=== PATIENT | female | born 1940 | race Caucasian/White ===

== ENCOUNTER 2022-11-28 11:24 | Emergency (ER) | payer OTHER, SELFPAY ==
[2022-11-28] VITALS (9 sets, daily range): BP systolic 119–157; BP diastolic 69–83; PULSE 69–85; RESP 12; TEMP 36.4; O2SAT 92–99; BMI 33.2
--- NOTE | 2022-11-28 11:57 | CRLHL7_ITS ---
For Patients: As a result of the Cures Act, medical imaging exams and procedure reports are released immediately into your electronic medical record. You may view this report before your referring provider. If you have questions, please contact your health care provider. INDICATION: Weakness, COVID exposure. TECHNIQUE: Chest 2 views. COMPARISON: Chest radiograph 09/05/2021. FINDINGS: No focal consolidation, pleural effusion, or pneumothorax. Calcified granuloma left lower lung. Normal heart size and pulmonary vascularity. Tortuous aorta. Stable elevation of the right hemidiaphragm. Left convex thoracic curve. IMPRESSION: No acute cardiopulmonary findings. Dictated by Cynthia Horta MD @ 11/28/2022 1:19:13 PM (Electronically Signed)
--- NOTE | 2022-11-28 11:58 | ED.GENADULT ---
HPI - General Adult General Time Seen by Provider: 11:58 Date Seen: 11/28/22 Chief complaint: Weakness Stated complaint: woke up chilled Time Seen by Provider: 11/28/22 11:44 Source: patient Mode of arrival: ambulatory Limitations: no limitations History of Present Illness HPI narrative: Patient is a 82-year-old female with a history of any chronic, chronic pain on baclofen history blood clots on apixaban presents emergency department for weakness. She is here with her daughter. They state low patient woke up this morning with chills and medical to did she could not get warm. Patient will been eating and drinking normally. She has no increased weakness compared to her baseline. Denies fevers, vision changes, chest pain, shortness of breath, abdominal pain, diarrhea, constipation, dysuria. She does states she has a cough, but it is chronic and she has has numbness which she states is also chronic. She states seen yearly screening different than her normal. They are concerned because she had a COVID exposure over the weekend. Family also thought she initially was having the symptoms because she got sunburned over the weekend in they thought she might have had sun poinsoning. Finish states patient forgets to take it baclofen last night. Related Data Home Medications Medication Instructions Recorded Confirmed Lactobacillus acidophilus 500 500 mmu cells PO DAILY 11/28/22 11/28/22 million cell capsule acetaminophen 325 mg capsule 325 mg PO Q4H PRN 11/28/22 11/28/22 apixaban 5 mg tablet (Eliquis) mg PO 11/28/22 baclofen 20 mg tablet mg PO 11/28/22 baclofen 5 mg tablet mg PO 11/28/22 calcium citrate 200 mg (950 mg) 200 mg PO DAILY 11/28/22 11/28/22 tablet fluticasone propionate 50 intranasal TID 11/28/22 mcg/actuation nasal spray,suspension lidocaine 5 % topical patch patch topical 11/28/22 magnesium oxide 400 mg (241.3 mg 400 mg PO DAILY 11/28/22 11/28/22 magnesium) tablet simvastatin 20 mg tablet mg PO 11/28/22 Previous Rx's Medication Instructions Recorded cephalexin 500 mg capsule 500 mg PO QID #40 caps 11/28/22 Allergies Allergy/AdvReac Type Severity Reaction Status Date / Time albuterol Allergy Mild Verified 11/28/22 11:39 PFSH PFS Social History Smoking Status: Never smoker How often do you have a drink containing alcohol: never AUDIT-C Alcohol total score: 0 Non-prescribed substance use: denies use service: No Exam Narrative: Exam Narrative: Const: Well-nourished, Well-developed, in mild distress Eyes: PERRL, no conjunctival injection, and symmetrical lids ENMT: Atraumatic external nose and ears. Moist mucous membranes. Neck: Symmetric, trachea midline, No thyromegaly. CVS: RRR, systolic murmur heard all 5th intercostal space, left mid-clavicular line. Peripheral pulses 2+ and equal in all extremities RESP: Unlabored respiratory effort. Clear to auscultation bilaterally. GI: Nontender/Nondistended, No rebound or guarding. MSK:Extremities w/o deformity, Normal Active ROM Skin: Warm, Dry. Well demarcated erythematous area to left forearm Neuro: Normal Muscle tone, No focal neurological deficits. Psych: Awake, Alert, & Oriented x3. Appropriate mood and affect. Const: Vital Signs, click to edit/add: Vital Signs - 24 hr 11/28/22 11:31 11/28/22 13:00 11/28/22 13:17 Temperature 97.5 F L Pulse Rate 74 Pulse Rate [Pulse Oximeter] 85 73 Respiratory Rate 12 Blood Pressure Blood Pressure [Ri ght Upper Arm] 126/70 149/83 H Pulse Oximetry 92 95 95 Oxygen Delivery Me thod Room Air Room Air 11/28/22 13:41 11/28/22 13:42 11/28/22 14:02 Temperature Pulse Rate 80 77 71 Pulse Rate [Pulse Oximeter] Respiratory Rate Blood Pressure 157/81 H 127/74 Blood Pressure [Ri ght Upper Arm] Pulse Oximetry 95 95 95 Oxygen Delivery Me thod 11/28/22 14:03 11/28/22 14:30 11/28/22 14:31 Temperature Pulse Rate 72 69 72 Pulse Rate [Pulse Oximeter] Respiratory Rate Blood Pressure 119/69 Blood Pressure [Ri ght Upper Arm] Pulse Oximetry 95 96 99 Oxygen Delivery Me thod Course Vital Signs Vital signs: Initial Vital Signs Temperature 97.5 F L 11/28/22 11:31 Temperature Source Temporal Artery Scan 11/28/22 11:31 Pulse Rate 85 11/28/22 11:31 Respiratory Rate 12 11/28/22 11:31 Blood Pressure 126/70 11/28/22 11:31 Blood Pressure Mean 88 11/28/22 11:31 Pulse Oximetry 92 11/28/22 11:31 Oxygen Delivery Method Room Air 11/28/22 11:31 Vital Signs Temperature 97.5 F L 11/28/22 11:31 Pulse Rate 85 11/28/22 11:31 Respiratory Rate 12 11/28/22 11:31 Blood Pressure 126/70 11/28/22 11:31 Pulse Oximetry 92 11/28/22 11:31 Oxygen Delivery Method Room Air 11/28/22 11:31 Temperature 97.5 F L 11/28/22 11:31 Pulse Rate 72 11/28/22 14:31 Respiratory Rate 12 11/28/22 11:31 Blood Pressure 119/69 11/28/22 14:31 Pulse Oximetry 99 11/28/22 14:31 Oxygen Delivery Method Room Air 11/28/22 13:00 Medical Decision Making MDM Narrative Medical decision making narrative: Patient is a for a femur presented emergency department for chills. She had a recent COVID exposure post having no upper respiratory symptoms. They are also concerned she might have some sun poisoning for possible sunburn on her left forearm. Patient is not having increased weakness from her baseline. Due to the vague nature of her symptoms a broad workup was ordered including CBC, CMP, urinalysis, troponin, EKG, chest x-ray, COVID/flu/RSV. Patient's EKG shows no concerning abnormalities. No previous EKGs to compare to. Patient's lab work all returned showing no concerning abnormalities. No clear signs of worsening underlying infection. COVID/flu/RSV were negative. Chest x-ray showed no concerning abnormalities. The erythema to her left arm does appear to be possibly erysipelas. There is no pain to palpation and is well demarcated unlikely to be a sunburn at this time. With her symptoms we will start her on antibiotics. I spoke to her daughter in their comfortable being discharged home at this time. I informed him to have close follow-up with her primary care provider. They are agreeable to this plan Differential Diagnosis Differential Diagnosis: Electrolyte abnormalities, infection, glucose abnormality, COVID Lab Data Labs: Lab Results 11/28/22 11/28/22 11/28/22 Range/Units 11:58 12:52 13:35 WBC 8.88 (4.50-11.00) K/uL RBC 5.03 (4.00-5.20) m/uL Hgb 15.0 (12.0-16.0) gm/dL Hct 44.8 (33.0-51.0) % MCV 89 (80-100) fL MCH 30 (26-34) pg MCHC 34 (32-36) gm/dL RDW Coeff of Luz 13.9 (11.5-15.5) % Plt Count 218 (140-440) K/uL Neut % (Auto) 70.0 (42.0-72.0) % Lymph % (Auto) 20.2 (20-44) % [place] % (Auto) 7.5 (0.0-11.0) % Eos % (Auto) 1.4 (0.0-7.0) % Baso % (Auto) 0.7 (0.0-3.0) % Neut # (Auto) 6.22 (1.7-7.0) K/uL Lymph # (Auto) 1.79 (0.90-2.90) K/uL [place] # (Auto) 0.70 (0.00-0.90) K/UL Eos # (Auto) 0.12 (0.00-0.50) K/uL Baso # (Auto) 0.06 (0.00-0.30) K/uL Abs Immat Gran (auto) 0.02 (0.00-0.30) K/uL Imm/Tot Granulo (auto) 0.2 % Sodium 134 L (135-149) mmol/L Potassium 3.7 (3.6-5.1) mmol/L Chloride 98 (96-114) mmol/L Carbon Dioxide 27 (20-32) mmol/L BUN 17 (7-30) mg/dL Creatinine 0.6 (0.5-1.5) mg/dL Estimated Creat Clear 30.08 Estimated GFR 88 ml/min Glucose 119 H (60-115) mg/dL Calcium 9.1 (8.4-10.6) mg/dL Troponin I < 0.01 L (0.01-0.04) ng/mL Urine Color Yellow (Yellow) Urine Appearance Clear (Clear) Urine pH 7.0 (5.0-8.5) Ur Specific [place] 1.015 (1.000-1.030) Urine Protein Negative (Negative) Urine Glucose (UA) Negative (Negative) Urine Ketones 1+ A (Negative) Urine Blood Trace-intact A (Negative) Urine Nitrite Negative (Negative) Urine Bilirubin Negative (Negative) Urine Urobilinogen 0.2 (0.2-1.0) Ur Leukocyte Esterase Negative (Negative) Urine RBC 0-2 (0-2) Urine WBC 0-2 (0-5) Ur Squamous Epith Cells None (None-Few) Urine Bacteria None (None) SARS-CoV-2 (PCR) Negative SARS-CoV-2 (Negative) Influenza Type A (PCR) Negative PCR FLU A (Negative) Influenza Type B (PCR) Negative PCR FLU B (Negative) RSV (PCR) Negative PCR RSV (Negative) Discharge Plan Discharge Clinical Impression: Erysipelas Patient Disposition: Home, Self-Care Condition: Stable Instructions: Cellulitis (ED) Additional Instructions: Your lab work returned showing no concerning abnormalities. The rash on the left forearm appears to possibly be erysipelas which is a superficial form of cellulitis. You will be started on antibiotics. Return for new or worsening symptoms Prescriptions: New cephalexin 500 mg capsule 500 mg PO QID Qty: 40 0RF No Action fluticasone propionate 50 mcg/actuation spray,suspension INTRANASAL TID Patient Comments: [NO ORIGINAL SIG] baclofen 20 mg tablet PO Eliquis 5 mg tablet PO simvastatin 20 mg tablet PO baclofen 5 mg tablet PO Lactobacillus acidophilus 500 million cell capsule 500 mmu cells PO DAILY magnesium oxide 400 mg (241.3 mg magnesium) tablet 400 mg PO DAILY acetaminophen 325 mg capsule 325 mg PO Q4H PRN lidocaine 5 % adhesive patch,medicated topical calcium citrate 200 mg (950 mg) tablet 200 mg PO DAILY Follow Up/Referrals: Carlita Gage MD [Primary Care Provider] - [facility]
[2022-11-28 12:42] LABS: PCR FLU A Negative PCR FLU A (Negative); PCR FLU B Negative PCR FLU B (Negative); PCR RSV Negative PCR RSV (Negative); SARS PCR* Negative SARS-CoV-2 (Negative)
[2022-11-28 13:01] LABS: Basophils Absolute Auto 0.06 K/uL (0.00-0.30); Basophils Percent Auto 0.7 % (0.0-3.0); Eosinophils Absolute Auto 0.12 K/uL (0.00-0.50); Eosinophils Percent Auto 1.4 % (0.0-7.0); Hematocrit 44.8 % (33.0-51.0); Immature Granulocytes Abs Auto 0.02 K/uL (0.00-0.30); Immature Granulocytes Pct Auto 0.2 %; Lymphocytes Absolute Auto 1.79 K/uL (0.90-2.90); Lymphocytes Percent Auto 20.2 % (20-44); Mean Corpuscular HGB Conc 34 gm/dL (32-36); Mean Corpuscular Hemoglobin 30 pg (26-34); Mean Corpuscular Volume 89 fL (80-100); Monocytes Percent Auto 7.5 % (0.0-11.0); Neutrophils Absolute Auto 6.22 K/uL (1.7-7.0); Platelet Count* 218 K/uL (140-440); RDW Coefficient of Variation % 13.9 % (11.5-15.5); Red Blood Count 5.03 m/uL (4.00-5.20); White Blood Count* 8.88 K/uL (4.50-11.00)
[2022-11-28 13:05] LABS: Slide Review Reflex No
[2022-11-28 13:18] LABS: Chloride* 98 mmol/L (96-114); Potassium* 3.7 mmol/L (3.6-5.1); Sodium* 134 mmol/L (135-149)
[2022-11-28 13:21] LABS: Blood Urea Nitrogen* 17 mg/dL (7-30); Carbon Dioxide* 27 mmol/L (20-32); Creatinine* 0.6 mg/dL (0.5-1.5); Est. Creatinine Clearance* 30.08; Estimated Glomerular Filt Rate 88 ml/min; Glucose* 119 mg/dL (60-115)
[2022-11-28 13:22] LABS: Calcium* 9.1 mg/dL (8.4-10.6)
[2022-11-28 13:39] LABS: Troponin I* < 0.01 ng/mL (0.01-0.04)
[2022-11-28 13:45] LABS: Appearance Urine Clear (Clear); Bilirubin Urine Negative (Negative); Blood Urine Trace-intact (Negative); Color Urine Yellow (Yellow); Glucose Urine Negative (Negative); Ketones Urine 1+ (Negative); Leukocyte Esterase Urine Negative (Negative); Nitrite Urine Negative (Negative); Protein Urine Negative (Negative); Specific Gravity Urine 1.015 (1.000-1.030); Urobilinogen Urine 0.2 (0.2-1.0)
[2022-11-28 13:56] LABS: RBC Urine 0-2 (0-2); WBC Urine 0-2 (0-5)
== END 2022-11-28 14:58 | disposition home or self-care (01) ==
PROVIDERS: Emergency Provider Student in an Organized Health Care Education/Training Program; PCP Internal Medicine
DX: A46 Erysipelas (principal)
CPT/HCPCS: 36415; 71046; 80048; 81001; 84484; 85025; 87631; 93005; 99283; 99284

== ENCOUNTER 2022-12-01 10:35 | Outpatient (RCR) | payer SELFPAY | END 2022-12-22 13:23 | disposition home or self-care (01) | LOC: MOW 10:35 | PROVIDERS: PCP Internal Medicine; Visit Provider Internal Medicine | DX: Z76.0 Encounter for issue of repeat prescription (principal) | CPT/HCPCS: S5170 ==

== ENCOUNTER 2023-02-19 06:44 | Outpatient (CLI) | payer OTHER, SELFPAY | END 2023-02-19 06:45 | disposition home or self-care (01) | PROVIDERS: PCP Internal Medicine; Visit Provider Family Medicine | DX: R53.1 Weakness (principal) | CPT/HCPCS: A0998 ==

== ENCOUNTER 2023-06-03 15:10 | Observation (INO) | payer OTHER, SELFPAY ==
[2023-06-03 15:17] VITALS: BP 179/94; PULSE 98; RESP 20; TEMP 36.3; O2SAT 92; BMI 32.9
--- NOTE | 2023-06-03 15:44 | CRLHL7_ITS ---
For Patients: As a result of the Century Cures Act, medical imaging exams and procedure reports are released immediately into your electronic medical record. You may view this report before your referring provider. If you have questions, please contact your health care provider. INDICATION: Pain and swelling with trauma. TECHNIQUE: Three views. COMPARISON: None. FINDINGS: Nondisplaced fracture of the distal right fibula. Possible small avulsion fracture of the posterior malleolus on the lateral view. Diffuse periarticular soft tissue swelling. Plantar calcaneal spur and dystrophic mineralization of the plantar soft tissues of the hindfoot. 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 Orthopedic referral is recommended. If clinically indicated, follow-up imaging (CT or MRI) could be performed for further evaluation. Dictated by Kavon Desai MD @ 06/03/2023 4:35:58 PM (Electronically Signed)
--- NOTE | 2023-06-03 16:18 | ED_ITS ---
HPI - General Adult General Chief complaint: Extremity Pain/Injury, Lower Stated complaint: Fall Time Seen by Provider: 06/03/23 16:01 Source: patient Limitations: no limitations History of Present Illness HPI narrative: Year old female presenting today with ankle pain. Patient says she was using the bathroom at home when she lost her balance and fell sideways, twisting her ankle. she was unable to get up secondary to ankle pain. Patient lives independently with her . They have a manager location who comes a few hours in the morning and a few hours in the evening. She denies hitting her head or losing consciousness. He is not having any neck or back pain that is new. Past medical history significant for chronic pain, left lower extremity blood clots on anticoagulation, hyperlipidemia. She also had spinal surgery in the [facility] with resulting ambulation difficulties, she usually drags the left foot according to her son and she uses a walker at all times. Related Data Home Medications Medication Instructions Recorded Confirmed Lactobacillus acidophilus 500 500 mmu cells PO DAILY 11/28/22 11/28/22 million cell capsule acetaminophen 325 mg capsule 325 mg PO Q4H PRN 11/28/22 11/28/22 apixaban 5 mg tablet (Eliquis) mg PO 11/28/22 baclofen 20 mg tablet 20 mg PO 11/28/22 baclofen 5 mg tablet 5 mg PO 11/28/22 calcium citrate 200 mg (950 mg) 200 mg PO DAILY 11/28/22 11/28/22 tablet fluticasone propionate 50 intranasal TID 11/28/22 mcg/actuation nasal spray,suspension lidocaine 5 % topical patch patch topical 11/28/22 magnesium oxide 400 mg (241.3 mg 400 mg PO DAILY 11/28/22 11/28/22 magnesium) tablet simvastatin 20 mg tablet 20 mg PO 11/28/22 alendronate 70 mg tablet 70 mg PO 06/03/23 Previous Rx's Medication Instructions Recorded cephalexin 500 mg capsule 500 mg PO QID #40 caps 11/28/22 Allergies Allergy/AdvReac Type Severity Reaction Status Date / Time albuterol Allergy Mild Verified 11/28/22 11:39 Review of Systems Status of ROS: Reports: 6 or more systems reviewed and unremarkable except as noted in History and below PFS PFS Medical History Durable power of trade mark attorney in chart Social History Smoking Status: Never smoker Do you use any of these nicotine containing products: None Second hand tobacco smoke exposure: No How often do you have a drink containing alcohol: never AUDIT-C Alcohol total score: 0 Non-prescribed substance use: denies use service: No Exam Narrative: Exam Narrative: Well-nourished elderly patient in no acute distress. Hearing aids in place. Alert and oriented x3. Answers questions appropriately. Mood and affect are appropriate. Thoughts are goal oriented and rational. No tangential or magical thinking noted. Patient speaks in full sentences without needing to catch her breath. Speech is not slurred or pressured. HEENT: Normocephalic atraumatic. Pupils are equally round reactive to light. Extraocular muscles are intact. Conjunctivae are moist without any icterus noted. Moist mucous membranes. Neck is soft. No tenderness over the cervical spine. Cardiovascular: Heart is regular rate and rhythm. Lungs: Clear to auscultation bilaterally. Extremities: Bilateral lower extremities are without edema. Right lower extremity has significant edema over the lateral ankle. Tenderness to palpation. Skin: Well perfused. Const: Vital Signs, click to edit/add: Vital Signs - 24 hr 06/03/23 15:17 Temperature 97.3 F L Pulse Rate [Right Pulse Oximeter] 98 Respiratory Rate 20 Blood Pressure [Ri ght Upper Arm] 179/94 H Pulse Oximetry 92 Oxygen Delivery Me thod Room Air Course Course ED Course: X-ray of the ankle was done which showed a nondisplaced fracture of the distal right fibula and a possible small avulsion fracture of the posterior malleolus on the lateral view. Did consult with Orthopedics, who recommended Cam boot and nonweightbearing. They will consult in the morning and decide whether not to do further imaging at that time. Given that the patient cannot ambulate with this injury patient will be admitted for further management Vital Signs Vital signs: Initial Vital Signs Temperature 97.3 F L 06/03/23 15:17 Temperature Source Temporal Artery Scan 06/03/23 15:17 Pulse Rate 98 06/03/23 15:17 Respiratory Rate 20 06/03/23 15:17 Blood Pressure 179/94 H 06/03/23 15:17 Blood Pressure Mean 122 H 06/03/23 15:17 Blood Pressure Position Sitting 06/03/23 15:17 Pulse Oximetry 92 06/03/23 15:17 Oxygen Delivery Method Room Air 06/03/23 15:17 Vital Signs Temperature 97.3 F L 06/03/23 15:17 Pulse Rate 98 06/03/23 15:17 Respiratory Rate 20 06/03/23 15:17 Blood Pressure 179/94 H 06/03/23 15:17 Pulse Oximetry 92 06/03/23 15:17 Oxygen Delivery Method Room Air 06/03/23 15:17 Temperature 97.3 F L 06/03/23 15:17 Pulse Rate 98 06/03/23 15:17 Respiratory Rate 20 06/03/23 15:17 Blood Pressure 179/94 H 06/03/23 15:17 Pulse Oximetry 92 06/03/23 15:17 Oxygen Delivery Method Room Air 06/03/23 15:17 Medical Decision Making MDM Narrative Medical decision making narrative: 83-year-old female status post ankle fracture and unable to ambulate. Patient admitted for further management. Imaging Data X-ray ankle: Attestation: I have reviewed the pertinent imaging results. Radiologist's impression: Three views. COMPARISON: None. FINDINGS: Nondisplaced fracture of the distal right fibula. Possible small avulsion fracture of the posterior malleolus on the lateral view. Diffuse periarticular soft tissue swelling. Plantar calcaneal spur and dystrophic mineralization of the plantar soft tissues of the hindfoot. 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 Orthopedic referral is recommended. If clinically indicated, follow-up imaging (CT or MRI) could be performed for further evaluation. Discharge Plan Discharge Clinical Impression: Unable to ambulate, Ankle fracture Patient Disposition: Admitted As Observation Condition: Stable Prescriptions: No Action fluticasone propionate 50 mcg/actuation spray,suspension INTRANASAL TID Patient Comments: [NO ORIGINAL SIG] baclofen 20 mg tablet 20 mg PO Eliquis 5 mg tablet PO simvastatin 20 mg tablet 20 mg PO baclofen 5 mg tablet 5 mg PO Lactobacillus acidophilus 500 million cell capsule 500 mmu cells PO DAILY magnesium oxide 400 mg (241.3 mg magnesium) tablet 400 mg PO DAILY acetaminophen 325 mg capsule 325 mg PO Q4H PRN lidocaine 5 % adhesive patch,medicated topical calcium citrate 200 mg (950 mg) tablet 200 mg PO DAILY cephalexin 500 mg capsule 500 mg PO QID Qty: 40 0RF alendronate 70 mg tablet 70 mg PO Follow Up/Referrals: Carlita Gage MD [Primary Care Provider] -
--- OUTSIDE RECORDS SUMMARY | 2023-06-03 16:35 | XMS_ITS | Clinical Summary ---
Author Name Unknown Organization [facility] [employer] [facility] Address [place], [place] [address] Care Team Providers Care Director Of Catering Sales Name Role Phone Carlita Gage MD Primary Care Provider Pebbles Solano Unavailable [phone] Tere Hill RN Unavailable Holly Johnson DO Unavailable [phone] [facility] [place] Unavailable [phone] Allergies Active Allergy Reactions Criticality Noted Date Comments Albuterol 07/06/2006 anxious Sulfa (Sulfonamide Antibiotics) 12/2006 Medications Medication Sig Dispensed Refills Start Date End Date Status acetaminophen (TYLENOL) 325 mg tablet Take 650 mg by mouth every 4 hours if needed for Pain. Max acetaminophen dose: 4000mg in 24 hrs. 0 Active melatonin 3 mg tablet Take 1 Tablet (3 mg) by mouth once daily. 0 09/08/19 21 Active magnesium oxide (MAG-OX 400) 400 mg tablet Take 1 Tablet (400 mg) by mouth once daily. 0 09/08/19 21 Active Lactobacillus acidophilus 500 million cell cap Take one capsule daily 0 08/31/19 23 Active fluticasone (50 mcg per actuation) nasal solution (FLONASE)Indications:Per ennial allergic rhinitis USE 1 SPRAY IN EACH NOSTRIL TWICE DAILY 48 g 2 11/21/19 23 Active CPAPIndications:DREW (obstructive sleep apnea) CPAP machine for home use at pressure 10.6 cmw, full face mask x1/3month with a full face cushion x1/mo 1 Each 11 11/23/19 23 Active simvastatin (ZOCOR) 20 mg tabletIndications:Pure hypercholesterolemia Take 1 Tablet (20 mg) by mouth once daily in the evening. 90 Tablet 3 01/06/20 23 Active baclofen (LIORESAL) 5 mg tab tabletIndications:[facility] Take 1-2 Tablets (5-10 mg) by mouth 2 times daily if needed (spasms). 180 Tablet 4 03/12/20 23 Active calcium carbonate-vitamin D3, 600 mg-400 unit, 600 mg-10 mcg (400 unit) tablet Take 1 Tablet by mouth once daily with a meal. 0 04/07/20 23 Active Diaper,Brief, Adult,DisposableIndicati ons:Mixed stress and urge urinary incontinence For home use. Uses 2/day. 60 Each 05/11/19 24 Active baclofen (LIORESAL) 20 mg tabletIndications:Syrinx of spinal cord (HC),Spasticity TAKE 1 TABLET BY MOUTH AT BEDTIME. SEE NOTES TO PHARMACY 90 Tablet 3 05/22/19 24 Active apixaban (Eliquis) 5 mg tabletIndications:Histor y of DVT (deep vein thrombosis) Take 1 Tablet (5 mg) by mouth two times daily. 180 Tablet 3 05/22/19 24 Active alendronate (FOSAMAX) 70 mg tabletIndications:Osteop enia, unspecified location Take 1 Tablet (70 mg) by mouth once a week in the morning. Take on empty stomach with full glass of water. Do not lie down for 1 hr. 12 Tablet 3 05/22/19 24 Active baclofen (LIORESAL) 20 mg tabletIndications:Syrinx of spinal cord (HC),Spasticity TAKE 1 TABLET BY MOUTH AT BEDTIME. SEE NOTES TO PHARMACY 90 tablet. 6 05/24/19 22 024 Discontin ued(Reord er (E-cancel not sent)) apixaban (Eliquis) 5 mg tabletIndications:Histor y of DVT (deep vein thrombosis) Take 1 Tablet (5 mg) by mouth two times daily. 180 Tablet 1 04/06/20 23 024 Discontin ued(Reord er (E-cancel not sent)) apixaban (Eliquis) 5 mg tabletIndications:Histor y of DVT (deep vein thrombosis) Take 1 Tablet (5 mg) by mouth two times daily. 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 01/14/2019 Type 2 diabetes mellitus wit hout complication, without long-term current use of insulin 01/06/2019 Tear of left glenoid labrum 11/27/2018 Muscle spasm 11/27/2018 Impingement syndrome of left shoulder 11/20/2018 Lumbar stenosis with neurogenic claudication Lumbar foraminal stenosis 06/12/2018 Primary cancer of left breast 06/12/2018 Trigger finger, right middle finger 08/01/2017 DREW 03/05/2017 AHI-16 03/13/2017 Bronchiectasis without complication 06/02/2016 Chronic cough 05/31/2010 Overview: Spirometry normal Osteopenia 04/25/2010 Overview: 03/2010 Lowest T-score -1.9 Sensorineural hearing loss, bilateral 05/11/2009 History of cancer of left breast 06/28/2001 Overview: Initially treated with left umpectomy and chemotherapy s/p bilateral mastectomies Treated with Arimidex for 5 years Pure hypercholesterolemia Gastroesophageal reflux disease without esophagi tis Perennial allergic rhinitis Osteoarthritis Resolved Problems Problem Noted Date Diagnosed Date Resolved Date Hypertension 05/26/2019 04/07/2023 Heart murmur 01/18/2019 01/23/2019 Transient global amnesia 01/17/2019 Chest pain 01/16/2019 05/27/2019 Weakness 11/27/2018 04/07/2023 Cellulitis of right hand 08/14/2016 Dog bite of finger 08/14/2016 7 Morbid obesity 07/13/2016 09/07/2020 Prediabetes 06/03/2014 05/27/2019 Overview: HbA1c 6.0% Osteoporosis 04/21/2008 05/15/2012 Encounters Date Type Department Care Team Description 06/01/2023 11:00 AM BRIM FLEXER Telemedicine [facility] [address] [facility] [address] [place] [address] Bruce Guadalupe MD Fatigue 06/01/2023 Telephone [facility] [address] [place] [address] [address] Davin Steven MD Questions 05/31/2023 Telephone [facility] [address] [place] [address] Davin Steven MD Questions 05/31/2023 Travel 05/24/2023 2:30 PM BRIM FLEXER Ancillary Procedure [facility] Gita Moseley [address] [place] [address] [address] [address] 05/24/2023 1:30 PM BRIM FLEXER [facility] [address] [address] Davin Steven MD CV General Cardiology New (Initial visit, ref by Too for severe . ) 05/24/2023 Travel 05/22/2023 Travel 05/22/[address] [place] [address] Carlita Gage MD Refill Request (baclofen (LIORESAL) 20 mg tablet ) 05/22/2023 [address] [address] Carlita Gage MD Refill Request (Eliquis) 2023 Telephone [facility] [address] [facility] [address] [place] [address] Cardiology, Anw Appointment (ANY CARD) 05/16/2023 11:00 AM BRIM FLEXER Ancillary Procedure [facility] [address] [place] [address] 05/16/2023 10:30 AM BRIM FLEXER Ancillary Procedure [facility] [address] [place] [address] 05/15/2023 Travel 04/06/2023 9:00 AM BRIM FLEXER Office Visit [address] [phone] Carlita Gage MD Medicare ANNUAL (subsequent) Visit (Update vaccines /Check ears ); Immunization/Injec tion (COVID-19 vaccine); Immunization/Injec tion 04/06/2023 Travel 04/04/2023 Travel 03/28/2023 11:30 AM BRIM FLEXER Office Visit [facility] [address] [place] [address] Inocente Vila, DPMerna Consult (Toenail fungus) 03/28/2023 Travel 03/08/[address] [address] Carlita Gage MD Medication Management (baclofen (LIORESAL) 5 mg tab tablet) 03/05/2023 Telephone [facility] [address] [place] [id number] Holly Johnson DO Refill Request (baclofen 5mg) from Last 3 Months Immunizations Name Administration Dates Next Due COVID-19 Vaccine Spikevax (M oderna 50mcg/0.5mL) 12YO+ 4459-0938 Formula PF 04/06/2023 COVID-19 vaccine (Moderna 100mcg/0.5mL) PF, MDV 07/08/2020,06/10/2020 COVID-19 vaccine (Xenon Arc NTech 30mcg/0.3mL) 12YO+ BIVALENT PF, MDV 02/22/2022 DTaP 03/27/2008 Influenza A (H1N1), Inactivated 05/13/2009 Influenza Virus, Unspecified 01/26/2016,02/05/20 15,03/06/2003 Influenza, High-dose Inactivated 019,02/08/2018,01/24/2017,2015,02/04/2015 Influenza, IIV3 (Age >=3 years) 02/07/20 13,01/18/2012,01/28/2009,2006,01/28/2006,03/06/2003 Influenza, IIV4 (=>6mos) MDV 03/05/2014 Influenza, Inactivated AIIV4 (Age 65+ Years) Preserv Free 04/06/2023,02/22/2022,01/31/2021,2019 Influenza, Inactivated IIV3 (Age 65+ Years) Preserv Free 02/18/2018,01/24/2017 Pneumococcal Poly,23-Valent (Pneumovax) 04/04/2011,01/23/2003,04/30/1993 Pneumococcal conj 13-Valent (Prevnar 13) 05/27/2014 Td (Age >=7 Years) 02/28/2003 Tdap 08/13/2016,03/27/2008 Zoster (Shingrix-RZV, recombinant) 02/19/2018, Zoster (Zostavax-ZVL, live) 10/25/2006 Family History Medical History Relation Name Comments Good Health Daughter Heart Disease Father Other Father of emphyse ma Heart Disease Mother of [place] Stroke Sister 3 Good Health Son Relation Name Status Comments Daughter Alive Father (Age 73) Mother (Age 77) Sister 1 (Age 90) Sister 2 Alive Sister 3 Son Alive Social History Tobacco Use Types Packs/Day Years Used Date Smoking Tobacco: Never Smokeless Tobacco: Never Tobacco Cessation:Counseling Given: Yes Alcohol Use Standard Drinks/Week Comments Not Currently 0 (1 standard drink = 0.6 oz pur e alcohol) rarely, 2 drinks per month PHQ-2 Answer Date Recorded PHQ-2 TOTAL SCORE 0 04/06/2023 Social Connections Answer Date Recorded Frequency of Communication with Friends and Fami ly Not on file 10/27/2022 Financial Resource Strain Answer Date R ecorded Difficulty of Paying Living Expenses 3 10/26/2021 Difficulty of Paying Living Expenses Not on file 10/26/2021 Food Insecurity Answer Date Recorded Worried About Running Out of Food in the Last Ye ar 1 10/26/2021 Transportation Needs Answer Date Record ed Lack of Transportation (Medical) 1 10/26/2021 Housing Stability Answer Date Recorded Unable to Pay for Housing in the Last Year 1 10/26/2021 Sex and Gender Information Value Date Recorded Sex Assigned at Not on file Gender Identity Not on file Sexual Orientation Not on file Obstetrics History Para Term AB IAB SAB Ectopic Multiple Livin g Live Births 3 2 1 1 2 Date Outcome GA Total Labor Labor/2nd/3rd Weight Sex Delivery Anes PTL Jaye A1 A5 Name Cl in SAB Para Para Last Filed Vital Signs Vital Sign Reading Time Taken Comments Blood Pressure 136/70 05/24/2023 1:22 PM BRIM FLEXER Pulse 78 05/24/2023 1:22 PM BRIM FLEXER Temperature 35.2 ??C (95.3 ??F) 10/05/2022 2:33 PM CD T Respiratory Rate 64 10/05/2022 2:33 PM CDT Oxygen Saturation 94% 05/24/2023 1:22 PM BRIM FLEXER Inhaled Oxygen Concentration - - Weight 80.7 kg (178 lb) 05/24/2023 1:22 PM BRIM FLEXER p t reported Height 156.8 cm (5' 1.73) 05/24/2023 1:22 PM CS T Body Mass Index 32.84 05/24/2023 1:22 PM BRIM FLEXER Plan of Treatment Upcoming Encounters Date Type Department Care Team (Late st Contact Info) Description 06/07/2023 11:00 AM BRIM FLEXER Orders Only [facility] [address] [place] [address] [place] [address] 06/07/2023 11:30 AM BRIM FLEXER Office Visit [facility] [address] [place] [address] [place] [address] Health Maintenance Due Date Last Done Comments COVID-19 vaccine series ( season) 2023 04/06/2023, 02/22/2022, 12/14/2021, Additional history exists Depression screening for age 12+ 04/06/2024 04/06/2023, 10/27/2021, 10/26/2021, Additional history exists Medicare Wellness for age 65+ 04/06/2024, 10/26/2021, 09/07/2020, Additional history exists BMI (ht and wt on same day) for age 18+ 05/24/2024 05/24/2023, 10/26/2021, 04/04/2021, Additional history exists Tetanus booster 08/13/2026 08/13/2016, 03/01, 02/28/2003 Pneumococcal series for age 65+ Completed 05/27/2014, 04/04/2011, 01/23/2003, Additional history exists Tdap Completed 08/13/2016, 03/27/2008 Zoster (shingles) series for age 50+ Completed 02/19/2018, 10/24/2017, 10/25/2006 Influenza for age 65+ Completed 04/06/2023 , 02/22/2022, 01/31/2021, Additional history exists DEXA/DXA scan for age 65+ Completed 2023, 05/21/2012, 04/26/2010, Additional history exists Medical Devices Implanted Type Area Cooperer Device Identifier Shelf Expiration Date Model / Serial / Lot Screw Neuro 4mm Matrixneuro Slf Drill Titnm - [id number] Implanted:Qty: 9 on 06/05/2019 by Clement Khan MBChB at [facility] [facility] [id number] .[id number] / / Plate Facial 7hole Synthes Adaption - [id number] Implanted:Qty: 2 on 06/05/2019 by Clement Khan MBChB at [facility] [employer] [facility] [id number] # / / Procedures Procedure Name Priority Date/Time Associated Diagnosis Comments CTA CHEST ABD PELVIS TAVR - DUAL READ ANDREW 05/24/2023 3:01 PM BRIM FLEXER Aortic stenosis, severe CREATININE,ISTAT Routine 05/24/2023 2:41 PM BRIM FLEXER Aortic stenosis, severe HEMATOCRIT Routine 05/24/2023 2:37 PM BRIM FLEXER Aortic stenosis, severe Pre-procedure lab exam ECHO TTE COMPLETE WO CONTRAST Routine 05/16/2023 11:40 AM BRIM FLEXER Systolic murmur Aortic valve stenosis, etiology of cardiac valve disease unspecified XR DXA BONE DENSITY 2 SITES AXIAL Routine 05/16/2023 11:04 AM BRIM FLEXER Osteopenia, unspecified location VITAMIN D 25 (DEFICIENCY) Routine 04/06/2023 10:41 AM BRIM FLEXER Vitamin D deficiency LIPID PANEL W REFLEX MEASURED LDL Routine 04/06/2023 10:41 AM BRIM FLEXER Pure hypercholesterolemia COMP METABOLIC PANEL Routine 04/06/2023 10:41 AM BRIM FLEXER Primary cancer of left breast (HC) CBC W PLT NO DIFF Add On 04/06/2023 9:1 3 AM BRIM FLEXER Primary cancer of left breast (HC) HEMOGLOBIN A1C Routine 04/06/2023 9:13 AM BRIM FLEXER Type 2 diabetes mellitus without complication, without long-term current use of insulin (HC) from Last 3 Months Results * CTA CHEST ABD PELVIS TAVR - DUAL READ (05/24/2023 3:01 PM BRIM FLEXER) Anatomical Region Laterality Modality CHEST, Abdomen, Pelvis Computed Tomography Impressions 05/25/2023 4:02 PM BRIM FLEXER 1. No acute nonvascular findings in the chest, abdomen, and pelvis. 2. Please refer to separately dictated report for evaluation of cardiovascular structures. Please note that all CT scans at this facility use dose modulation, iterative reconstruction, and/or weight-based dosing when appropriate to reduce radiation dose to as low as reasonably achievable. Dictated by Dean Rudd MD @ 05/25/2023 12:13:22 PM Signed by: Dean Rudd MD @05/25/2023 12:13:22 PM (Electronic Signature) Narrative 05/25/2023 4:02 PM BRIM FLEXER Images from the original result were not included. STUDY: CTA CHEST, ABDOMEN, AND PELVIS TAVR Study date: 05/25/2023 Indication: 83 year-old female with aortic valvular stenosis referred for evaluation of aortic valve annulus, thoracic aorta anatomy, and arterial access anatomy to determine candidacy for transcatheter aortic valve replacement (TAVR) procedure. STUDY PARAMETERS: Scanner: Siemens Definition Drive Contrast: 100 ml of Omnipaque 350 Scan protocol: Helical with dose modulation for heart image acquisition. ?? High-pitch for chest, abdomen, and pelvis image acquisition. Radiation dose length product: 1312 for heart and chest, abdomen, pelvis imaging. Image quality: Good FINDINGS: Aortic valve: Aortic valve: ??Severely calcified trileaflet valve with reduced leaflet opening excursion. . Aortic valve calcium score 2203. Annulus: Angles: Optimal deployment projection (balloon expandable device): EVANS 3??, BRUSH CUTTER 2?? Optimal deployment projections (self expandable device): EVANS 21??, CAU 20?? Left ventricle / aortic ??angle: 55?? Access: Other findings: Coronary arteries: ??Dominance: Right coronary artery ??Left main Patent ??Left anterior descending artery Patent ??Left circumflex artery Patent ??Right coronary artery Patent Left atrium: Reduced distal appendage contrast opacification Left ventricle septal ECV: 35% Pericardium: Normal without effusion. Thoracic aorta: Left-sided arch. Heka-wc-lbrtdotn atheromatous disease in the arch and descending thoracic aorta. Abdominal aorta: Normal size and morphology. Noncardiac findings: Please see separate radiology report. FINAL IMPRESSIONS: Severely calcified trileaflet aortic valve with calcium score of 2203 and reduced leaflet excursion. Best arterial access site is right or left transfemoral. Catheter coronary angiography is not needed prior to aortic valve intervention. Aortic annulus has a perimeter of 71 and an annular area of 394 mm??. FOR PATIENT: Results are automatically released to your [employer] account once available, in compliance with federal regulations. ?? This means that you may see your results before your provider has had a chance to review them. ??Please allow 2-3 business days for your provider to comment on the results. Robert Farley MD [facility] 05/25/2023 For Patients: As a result of the Century Cures Act, medical imaging exams and procedure reports are released immediately into your electronic medical record. ??You may view this report before your referring provider. ?? If you have questions, please contact your health care provider. OVER-READ ??OVER-READ ??OVER-READ OVER-READ: DETAILED RADIOLOGY EXTRACARDIAC OVER-READ OF CARDIAC CT 05/24/2023 TECHNIQUE: ??Please see cardiology report for technical information. ??100 cc Omnipaque-350 intravenous contrast. ?? This exam is being performed in conjunction with the services provided by the [facility] ([facility]). CLINICAL HISTORY: ?? Aortic stenosis. Cardiac over-read. FINDINGS: ?? Chest: Asymmetric prominence of the right thyroid lobe red bilateral hypoattenuated thyroid nodules measuring up to 9 mm in the isthmus which may represent multinodular goiter. No significant lymphadenopathy in the chest. Mild bibasilar dependent atelectatic changes. No focal airspace opacities or pleural effusions. Benign bilateral calcified granulomas. Stable small bilateral pulmonary nodules measuring up to 3 mm in the right lower lobe pulmonary nodule (series 17, image 177). Abdomen/Pelvis: Liver: Unremarkable. Gallbladder: Unremarkable. Spleen: Unremarkable. Adrenal glands: Unremarkable. Kidneys: Enhance symmetrically without hydronephrosis. Pancreas: Unremarkable. Lymph nodes: No retroperitoneal, mesenteric, inguinal, or pelvic adenopathy by CT criteria. Bowel: Evaluation is limited without enteric contrast. Grossly unremarkable. Urinary bladder: Limited evaluation due to underdistention. No gross pathology. Reproductive structures: Unremarkable for patient`s age. No abdominal/pelvis ascites or free intraperitoneal air. Musculoskeletal: Visualized osseous structures demonstrate diffuse degenerative changes. Davin Steven MD CT * (ABNORMAL) CREATININE,ISTAT (05/24/2023 2:41 PM BRIM FLEXER) CREATININE, POCT 0.60 0.57 - 1.11 mg/dL 05/24/2023 2:43 PM [facility] Comment:Caution: Patients ta keith Hydroxyurea have falsely increased iStat Creatinine results. Verify creatinine results ordering a Creatinine (74565.2) eGFR 88(L) >90 mL/min/1.7 3m2 05/24/2023 2:43 PM BRIM FLEXER [facility] Comment:As of 2021, eG FR is calculated by the CKD-EPI creatinine equation without race adjustment. eGFR can be influenced by muscle mass, exercise, and diet. The reported eGFR is an estimation only and is only applicable if the renal function is stable. Blood BLOOD SPECIMEN / Unknown 05/24/2023 2:41 PM BRIM FLEXER 05/24/2023 2:43 PM BRIM FLEXER Davin Steven MD CHEMISTRY Performing Organization Address City/[facility]/ZIP Co de Phone Number [facility] [address] [place] [address] [address] [place] [address], [place] * HEMATOCRIT (05/24/2023 2:37 PM BRIM FLEXER) Pathologist [facility] HEMATOCRIT 44.2 33.0 - 51.0 % 05/24/2023 2:42 PM BRIM FLEXER [facility] Blood BLOOD SPECIMEN / Unknown IV Start / Unknown 05/24/2023 2:37 PM BRIM FLEXER 05/24/2023 2:37 PM BRIM FLEXER Davin Steven MD HEMATOLOGY Performing Organization Address City/[facility] Co de Phone Number [address] [place] [address], [place] * ECHO TTE COMPLETE WO CONTRAST (05/16/2023 11:40 AM BRIM FLEXER) AORTIC VALVE MEAN PG 48 mmHg EJECTION FRACTION 69 % PEAK TR VELOCITY 2.6 m/s LVEDD 3.7 cm Anatomical Region Laterality Modality Ultrasound 05/16/2023 11:0 9 AM BRIM FLEXER Narrative 05/16/2023 2:34 PM BRIM FLEXER ECHOCARDIOGRAM ONDINA VARMA ? Accession#: ?? [id number] : ?1940 82 years Study Date: ?? 05/16/2023 11:09:56 AM Gender: F ?BP: ? 124/80 mmHg Height: 155.00 cm ?BSA: ?1.80 m? ? ? Weight: 81.00 kg ? Tech: ? MJW ? Referring MD: CARLITA GAGE Site: ? [facility] Reading Location: Mobile-OP Patient Location: Outpatient. Procedure: 2D, Color Doppler and Spectral Doppler. Indication for study: AO Valve Stenosis Cardiac Rhythm: Regular.Study quality: Imaging limitations: This study was subject to imaging limitations due to Patient positioning difficult. Final Impressions: 1. Normal left ventricular size, mildly increased wall thickness, normal global systolic function, calculated EF of 69 %. 2. Right ventricular cavity size is normal, global systolic RV function is normal. 3. Mildly enlarged left atrium. 4. The aortic valve is calcified and trileaflet, severe stenosis (Vmax 4.1m/s, MG 48mmHg, DI 0.17, SVi 38.3 ml/m? ? ?) and trace regurgitation. 5. The mitral valve is sclerotic, mild mitral regurgitation. Comparison Compared to prior exam of 05/29/2019: now severe, recommend cardiology consultation. Chamber Sizes and Function Normal left ventricular size, mildly increased wall thickness, normal global systolic function, calculated EF of 69 %. Left atrial size is mildly enlarged. Right ventricular cavity size is normal, global systolic RV function is normal. RV wall thickness is normal. The right atrium is normal. Right atrial volume index is 12 ml/m? ? ?. Right atrial area is 12 cm? ? ?. The pulmonary artery is of normal size and origin. The sinus of Valsalva is normal sized. The ascending aorta is normal sized. Valves, RV Pressures and Diastolic Function The aortic valve is calcified and trileaflet, severe stenosis and trivial regurgitation. The mitral valve is sclerotic, mild mitral regurgitation. Indeterminate pattern of LV diastolic filling. The tricuspid valve is normal in structure. Tricuspid regurgitation is mild regurgitation. The tricuspid regurgitant velocity is 2.6 m/s, the estimated right ventricular systolic pressure is 26 mmHg plus right atrial pressure. The pulmonic valve is normal. No pulmonary regurgitation. Masses, Effusion, Shunts There is no pericardial effusion. The inferior vena cava is not well visualized, respiratory size variation not well visualized. Interatrial septum is not well visualized. MEASUREMENTS AND CALCULATIONS 2-D Measurements and LV Function: LVID (d) 3.7 cm Planimetered EF 69 % LVID (s) 2.4 cm LV FS% (2D) ? 36 % IVS (d) ??1.2 cm LVOT diameter ?? 2.2 cm LVPW (d) 1.1 cm HR ?73 bpm Ao Sinus 2.7 cm LA Vol index ?28 ml/m2 Asc Ao ?? 3.1 cm RA Vol index ?12 ml/m2 LA ? 4.0 cm RA area ? 12 cm?RV Max 4C (d) ?? 2.9 cm Diastology: Mitral ?Tissue Doppler E Peak 1.0 m/s ??e', Septum ? 0.05 m/s A Peak 1.1 m/s ??e', Lateral ?0.05 m/s E/A ?0.9 ?E/e' Average ?? 19.42 DT ? 240 msec Aortic Valve: Vmax ? 4.1 m/s ??SHANNAN (V) ?? 0.69 cm? AI P 1/2 426 msec VTI ?1.12 m ?? SHANNAN (I) ?? 0.62 cm? ? ? LVOT V max ? 0.8 m/s ??Max PG ?68 mmHg LVOT VTI ? 0.19 m ?? Mean PG ?? 48 mmHg SV ? 69 ml ?Dim Index 0.17 SV index ? 38 ml/m? ? ? CO ?5.0 l/min AV Ejection Time 0.33 sec CI ?2.8 l/min/m? ? ? AV Flow Rate ? 210 ml/s Mitral Valve: MVA ?3.2 cm? ? ? MV P 1/2 70 msec Tricuspid Valve and estimated PA pressures: TR Vmax 2.6 m/s TAPSE 2.6 cm TR maxG 26 mmHg . This study was interpreted by an [facility] accredited facility. ??Final ?? Procedure Note Roger Mack MD - 05/16/2023 ECHOCARDIOGRAM ONDINA VARMA : 1940 82 years Study Date: 05/16/2023 11:09:56 AM Gender: F BP: 124/80 mmHg Height: 155.00 cm BSA: 1.80 m? ? ? Weight: 81.00 kg Tech: SHARMIN Referring MD: CARLITA GAGE Site: [facility] Reading Location: Mobile-OP Patient Location: Outpatient. Procedure: 2D, Color Doppler and Spectral Doppler. Indication for study: AO Valve Stenosis Cardiac Rhythm: Regular.Study quality: Imaging limitations: This study was subject to imaging limitations due toPatient positioning difficult. Final Impressions: 1. Normal left ventricular size, mildly increased wall thickness, normalglobal systolic function, calculated EF of 69 %. 2. Right ventricular cavity size is normal, global systolic RV functionis normal. 3. Mildly enlarged left atrium. 4. The aortic valve is calcified and trileaflet, severe stenosis (Vmax4.1m/s, MG 48mmHg, DI 0.17, SVi 38.3 ml/m? ? ?) and trace regurgitation. 5. The mitral valve is sclerotic, mild mitral regurgitation. Comparison Compared to prior exam of 05/29/2019: now severe, recommend cardiology consultation. Chamber Sizes and Function Normal left ventricular size, mildly increased wall thickness, normalglobal systolic function, calculated EF of 69 %. Left atrial size ismildly enlarged. Right ventricular cavity size is normal, global systolicRV function is normal. RV wall thickness is normal. The right atrium isnormal. Right atrial volume index is 12 ml/m? ? ?. Right atrial area is 12cm? ? ?. The pulmonary artery is of normal size and origin. The sinus ofValsalva is normal sized. The ascending aorta is normal sized. Valves, RV Pressures and Diastolic Function The aortic valve is calcified and trileaflet, severe stenosis and trivialregurgitation. The mitral valve is sclerotic, mild mitral regurgitation.Indeterminate pattern of LV diastolic filling. The tricuspid valve isnormal in structure. Tricuspid regurgitation is mild regurgitation. Thetricuspid regurgitant velocity is 2.6 m/s, the estimated right ventricularsystolic pressure is 26 mmHg plus right atrial pressure. The pulmonicvalve is normal. No pulmonary regurgitation. Masses, Effusion, Shunts There is no pericardial effusion. The inferior vena cava is not wellvisualized, respiratory size variation not well visualized. Interatrialseptum is not well visualized. MEASUREMENTS AND CALCULATIONS 2-D Measurements and LV Function: LVID (d) 3.7 cm Planimetered EF 69 % LVID (s) 2.4 cm LV FS% (2D) 36 % IVS (d) 1.2 cm LVOT diameter 2.2 cm LVPW (d) 1.1 cm HR 73 bpm Ao Sinus 2.7 cm LA Vol index 28 ml/m2 Asc Ao 3.1 cm RA Vol index 12 ml/m2 LA 4.0 cm RA area 12 cm? ? ? RV Max 4C (d) 2.9 cm Diastology: Mitral Tissue Doppler E Peak 1.0 m/s e', Septum 0.05 m/s A Peak 1.1 m/s e', Lateral 0.05 m/s E/A 0.9 E/e' Average 19.42 DT 240 msec Aortic Valve: Vmax 4.1 m/s SHANNAN (V) 0.69 cm? ? ? AI P 1/2 426 msec VTI 1.12 m SHANNAN (I) 0.62 cm? ? ? LVOT V max 0.8 m/s Max PG 68 mmHg LVOT VTI 0.19 m Mean PG 48 mmHg SV 69 ml Dim Index 0.17 SV index 38 ml/m? ? ? CO 5.0 l/min AV Ejection Time 0.33 sec CI 2.8 l/min/m? ? ? AV Flow Rate 210 ml/s Mitral Valve: MVA 3.2 cm? ? ? MV P 1/2 70 msec Tricuspid Valve and estimated PA pressures: TR Vmax 2.6 m/s TAPSE 2.6 cm TR maxG 26 mmHg . This study was interpreted by an [facility] accredited facility. Final Carlita Gage MD ECHO ORD * (ABNORMAL) XR DXA BONE DENSITY 2 SITES AXIAL (05/16/2023 11:04 AM [facility]) Anatomical Region Laterality Modality Spine, HIPS, HIPL, HIPR Other Impressions 05/16/2023 4:51 PM [facility] Osteopenia. RECOMMENDATIONS: The National Osteoporosis Foundation recommends pharmacologic treatment for patients with T-scores of -2.5 or less, patients with prior history of fragility fractures, or patients with 10-year probability of greater than 3% at hips or greater than 20% of suffering major osteoporotic fractures. Recommend continued optimization of calcium and vitamin D intake through dietary means and/or supplementation and regular exercise. Consider pharmacologic therapy for osteopenia with increased fracture risk. Follow-up bone density reading in 2 years if therapy initiated to assess therapeutic efficacy. Beth Rivera PA-C [facility] 05/16/2023 Narrative 05/16/2023 4:51 PM [facility] For Patients: Results are automatically released to your [facility] account once available, in compliance with federal regulations. This means that you may see your results before your provider has had a chance to review them. Please allow 2-3 business days for your provider to comment on the results. XR DXA Bone Mineral Density (BMD) EXAM LOCATION: [address] [address] PATIENT NAME: Ondina Varma DATE OF : 1940 EXAM DATE: 05/16/2023 REQUESTING PROVIDER: Carlita Gage MD GENDER AT : female HEIGHT: 5' 1.75 (10/26/2021) WEIGHT: ??178 lb (04/06/2023) MENOPAUSAL STATUS: Postmenopausal RACE/ETHNICITY: White RISK FACTORS: Aromatase Inhibitors (Arimidex, etc.) and White Race CURRENT MEDICATION FOR BONE LOSS: NONE INDICATION: Follow-up of existing osteopenia COMPARISON DATE(S): None DXA scans are compared to prior studies for a patient only when the two (or more) studies were performed on the same scanner. It is not possible to compare data generated on one scanner to data from another because there are not standards in DXA equipment. This applies even if the two scanners are made by the same jacquard loom heddles tier. PROCEDURE: Dual-energy x-ray absorptiometry performed with routine technique. Reporting is completed in the form of a T-score. The T-score represents the standard deviation from peak bone mass based on young healthy adult. A Z-score is used for diagnosis in premenopausal women, and for men under the age of 50. FINDINGS: RESULT LUMBAR SPINE L2 - L4 ??BMD: 1.155 g/cm2 T-Score: - 0.5 Z-Score: + 0.9 Change from prior: ??None RESULTS FEMUR Left femoral neck BMD: 0.705 g/cm2 T-Score: - 2.4 Z-Score: - 0.4 Change from prior: ??None Right femoral neck BMD: 0.774 g/cm2 T-Score: - 1.9 Z-Score: + 0.1 Change from prior: ??None Left hip BMD: 0.768 g/cm2 T-Score: - 1.9 Z-Score: + 0.0 Change from prior: ??None Right hip BMD: 0.816 g/cm2 T-Score: - 1.5 Z-Score: + 0.4 Change from prior: ??None WHO criteria: Normal: T-score at or above -1 SD Osteopenia: T-score between -1.1 and -2.4 SD Osteoporosis: T-score at or below -2.5 SD FRAX RISK CALCULATION (USED FOR OSTEOPENIA ONLY): 10-year probability of major osteoporotic fracture: 17.4%. 10-year probability of hip fracture: 5.9%. Carlita Gage MD DEXA * LIPID PANEL W REFLEX MEASURED LDL (04/06/2023 10:41 AM [facility]) CHOLESTEROL,TOTAL 152 100 - 199 mg/dL 04/06/2023 11:18 AM [facility] Comment: Cholesterol, Total Reference Ranges Desirable <200 mg/dL Borderline 200-239 mg/dL High >=240 mg/dL TRIGLYCERIDES 86 <150 mg/dL 04/06/2023 11:18 AM [facility] HDL CHOLESTEROL 70 >40 mg/dL 11:18 AM [facility] NON-HDL CHOLESTEROL 82 <145 mg/dl 04/06/2023 11:18 AM [facility] CHOL/HDL RATIO 2.17 <4.50 04/06/2023 11:18 AM [facility] LDL CHOLESTEROL 65 <=130 mg/dL 04/06/2023 11:18 AM [facility] VLDL CHOLESTEROL 17 <=30 mg/dL 04/06/2023 11:18 AM [facility] PROVIDER ORDERED STATUS RANDOM 04/06/2023 11:18 AM [facility] Blood BLOOD SPECIMEN / Unknown Venipuncture / Unknown 04/06/2023 10:41 AM [facility] 04/06/2023 10:43 AM [facility] Carlita Gage MD CHEMISTRY [facility] [address] [place] [address] * VITAMIN D 25 (DEFICIENCY) (04/06/2023 10:41 AM [facility]) VITAMIN D TOTAL 37.6 20.0 - 80.0 ng/mL 04/06/2023 10:17 PM [facility] Blood BLOOD SPECIMEN / Unknown Venipuncture / Unknown 04/06/2023 10:41 AM [facility] 04/06/2023 10:43 AM [facility] Narrative [facility] - 04/06/2023 10:17 PM [facility] ? Vitamin D Status Deficiency: ? <20 ng/mL Insufficiency: ?20-29 ng/mL Sufficiency: ?30-80 ng/mL Possible Toxicity: ??>80 ng/mL Based on [employer] recommendations Biotin supplements may cause clinically significant interference for this test assay. ??If interference is suspected, it is strongly recommended that biotin is discontinued for at least one week prior to retesting. Carlita Gage MD SEND OUTS [facility] [address] [place] [address], * (ABNORMAL) COMP METABOLIC PANEL (04/06/2023 10:41 AM [facility]) SODIUM 137 136 - 145 mmol/L 04/06/2023 11:18 AM [facility] POTASSIUM 4.2 3.5 - 5.1 mmol/L 04/06/2023 11:18 AM [facility] CHLORIDE 98 98 - 107 mmol/L 04/06/2023 11:18 AM [facility] CO2,TOTAL 29 22 - 29 mmol/L 04/06/2023 11:18 AM [facility] ANION GAP 10 5 - 18 04/06/2023 11:18 AM [facility] GLUCOSE 115(H) 70 - 99 mg/dL 04/06/2023 11:18 AM [facility] CALCIUM 9.7 8.8 - 10.2 mg/dL 04/06/2023 11:18 AM [facility] BUN 12 8 - 23 mg/dL 04/06/2023 11:18 AM [facility] CREATININE 0.57 0.50 - 0.90 mg/dL 04/06/2023 11:18 AM [facility] BUN/CREAT RATIO 21(H) 10 - 20 11:18 AM [facility] eGFR 90(L) >90 mL/min/1.7 3m2 04/06/2023 11:18 AM [facility] Comment:As of 2021, eG FR is calculated by the CKD-EPI creatinine equation without race adjustment. ??eGFR can be influenced by muscle mass, exercise, and diet. ??The reported eGFR is an estimation only and is only applicable if the renal function is stable. ALBUMIN 4.0 4.0 - 4.9 g/dL 04/06/2023 11:18 AM [facility] PROTEIN,TOTAL 7.0 6.0 - 8.0 g/dL 04/06/2023 11:18 AM [facility] BILIRUBIN,TOTAL 0.4 0.0 - 1.2 mg/dL 04/06/2023 11:18 AM [facility] ALK PHOSPHATASE 59 35 - 104 IU/L 04/06/2023 11:18 AM [facility] ALT (SGPT) 16 10 - 35 IU/L 04/06/2023 11:18 AM [facility] AST (SGOT) 23 10 - 35 IU/L 04/06/2023 11:18 AM [facility] Blood BLOOD SPECIMEN / Unknown Venipuncture / Unknown 04/06/2023 10:41 AM [facility] 04/06/2023 10:43 AM [facility] Carlita Gage MD CHEMISTRY [facility] [address] [place] [address] * CBC W PLT NO DIFF (04/06/2023 9:13 AM [facility]) WHITE BLOOD COUNT 5.9 4.5 - 11.0 thou/cu mm 04/06/2023 10:03 AM [facility] RED BLOOD COUNT 4.81 4.00 - 5.20 mil/cu mm 04/06/2023 10:03 AM [facility] HEMOGLOBIN 14.5 12.0 - 16.0 g/dL 04/06/2023 10:03 AM [facility] HEMATOCRIT 44.4 33.0 - 51.0 % 04/06/2023 10:03 AM [facility] MCV 92 80 - 100 fL 04/06/2023 10:03 AM [facility] MCH 30.1 26.0 - 34.0 pg 04/06/2023 10:03 AM [facility] MCHC 32.7 32.0 - 36.0 g/dL 04/06/2023 10:03 AM [facility] RDW 14.3 11.5 - 15.5 % 04/06/2023 10:03 AM [facility] PLATELET COUNT 233 140 - 440 thou/cu mm 04/06/2023 10:03 AM [facility] MPV 10.0 6.5 - 11.0 fL 04/06/2023 10:03 AM [facility] Blood BLOOD SPECIMEN / Unknown Venipuncture / Unknown 04/06/2023 9:13 AM [facility] 04/06/2023 9:15 AM [facility] Carlita Gage MD HEMATOLOGY [facility] [address] [place] [address] * (ABNORMAL) HEMOGLOBIN A1C MONITORING (POCT) (04/06/2023 9:13 AM [facility]) HEMOGLOBIN A1C MONITORING (POCT) 6.5(H) <=6.4 % 04/06/2023 9:23 AM [facility] Blood BLOOD SPECIMEN / Unknown Venipuncture / Unknown 04/06/2023 9:13 AM [facility] 04/06/2023 9:15 AM [facility] Narrative [facility] - 04/06/2023 9:23 AM [facility] ? (<=6.9%) ? Indicates good control ? (7.0% to 7.9%) ? Indicates fair control ? (>=8.0%) ? Indicates poor control ?? NOTE: ??These thresholds are guidelines and ?individual targets may vary. Falsely low levels may be seen with: Recent Transfusion, Recent Significant Blood Loss, Hemolytic Diseases, or Falsely elevated levels may be seen with: Untreated Anemias, Splenectomy ? Carlita Gage MD CHEMISTRY [facility] [address] [place] [address] from Last 3 Months Advance Directives Documents on File Type Date Recorded Patient Hand Potter Expl anation POLST 06/30/2019 12:00 AM 06/30/2019 Healthcare Directive 10/02/2018 2:31 PM sig graciela 09/30/18 Healthcare Directive 09/30/2018 019 Latest Code Status on File Code Status Date Activated Date Inactivated Comments Full Code 06/11/2019 12:48 PM 06/27/2019 12:27 PM Question Answer Comments Code Status Discussion: Per Existing Order Code Status History Code Status Date Activated Date Inactivated Comments Full Code 06/05/2019 4:46 PM 06/11/2019 12:23 PM Full Code 06/05/2019 6:12 AM 06/05/2019 4:46 PM Full Code 01/16/2019 10:39 PM 01/17/2019 7:12 PM Full Code 01/16/2019 10:39 PM 01/16/2019 10:39 PM Care Teams Director Of Catering Sales Relationship Specialty Start Date End Date Carlita Gage MD [address] [place] [address] PCP - General 06/01/15 Pebbles Solano AuD [address] [place] [address] Audiology 05/29/16 Tere Hill, TRISH [address] [place] [address] Spinal Cord Injury Rehab Care Coordination - [facility] Registered Nurse 07/18/19 Holly Johnson DO [address] [place] [address] Physical Medicince Rehab Physical Medicine and Rehabilitation 12/04/19 [facility] [place] [address] [place] [address] 08/18/22
--- NOTE | 2023-06-03 17:30 | CRLHL7_ITS ---
For Patients: As a result of the Century Cures Act, medical imaging exams and procedure reports are released immediately into your electronic medical record. You may view this report before your referring provider. If you have questions, please contact your health care provider. INDICATION: Ankle fracture TECHNIQUE: Single view of the right ankle. Comparison 06/03/2023 FINDINGS: Nondisplaced fracture of the distal right fibula. Alignment is unchanged from the prior study. Soft tissue swelling. Dictated by Ame Morales MD @ 06/03/2023 6:08:07 PM (Electronically Signed)
--- NOTE | 2023-06-03 18:05 | PM.IMHP1 ---
Hospitalist- H&P: KELLY History of Present Illness Date Seen: 06/03/23 Chief complaint: Fall Narrative: Ondina Verma is a 83 year old female with severe aortic stenosis, previous DVTs on anticoagulation, spinal syrinx causing left-sided weakness admitted through the emergency department after a fall at home. She fell today sustaining a Distal fibular fracture. Since the fall she has been unable to ambulate. She normally ambulates using a walker. She has prominent left-sided neurologic deficits due to a spinal syrinx causing spinal cord compression from C1-T1. Previously had surgery for this 4 years ago at [facility]. She was losing mobility and developing a neurogenic bladder due to this syrinx and underwent surgery. She initially had some improvement but has subsequently been losing function in her left leg and left arm. She is able to walk with a walker with some difficulty. She drags her left foot on the ground normally. She has minimal function in her left upper extremity but is able to hold onto a walker. She has recent evaluation with a [facility] for aortic stenosis. She was found to have a heart murmur on a physical examination in March and referred for evaluation. This evaluation shows severe aortic stenosis. She is scheduled for preop physical on June 07 and a TAVR is scheduled for June 13. She has had 2 previous deep venous thrombosis episodes. One occurred after a left ankle fracture ORIF and the other occurred after her spinal surgery 4 years ago. She has been on long-term anticoagulation with apixaban since that time Review of Systems Narrative: she reports no other recent illness or injury. Past medical history: Hyperlipidemia Left breast cancer treated with lumpectomy and chemotherapy and subsequently bilateral mastectomies and 5 years of Arimidex perennial allergic rhinitis on Flonase osteoporosis. 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 Not on current treatment history of DVT x2. both DVTs occurred following surgery, ORIF of left ankle fracture and treatment of spinal syrinx severe aortic stenosis pending TAVR on June 13 past surgical history: Trimalleolar fracture of the left ankle ORIF 1994 appendectomy breast lumpectomy modified radical mastectomy, bilateral cataract extractions bilaterally cervical laminoplasty at C2, C3 and partial C4 colonoscopy 2013 with recommendation for normal further scopes IVC filter placement 2019 IVC filter removal 2019 tonsillectomy total abdominal hysterectomy family history: both parents with heart disease. 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 They have loading machine operator helper for 6-8 hours a day to help them. Her has dementia and needs 24/7 supervision. Code status is DNR. Her daughter Yesy has and son Alex have healthcare power of electronics technology department chair. She does not smoke. She rarely drinks alcohol. Smoking Status: Never smoker Do you use any of these nicotine containing products: None Second hand tobacco smoke exposure: No How often do you have a drink containing alcohol: never AUDIT-C Alcohol total score: 0 Non-prescribed substance use: denies use service: No Meds Home Medications and Allergies Home Medications Medication Instructions Recorded Confirmed Type Lactobacillus acidophilus 500 500 mmu cells PO DAILY 11/28/22 11/28/22 History million cell capsule acetaminophen 325 mg capsule 325 mg PO Q4H PRN 11/28/22 11/28/22 History apixaban 5 mg tablet (Eliquis) mg PO 11/28/22 History baclofen 20 mg tablet 20 mg PO 11/28/22 History baclofen 5 mg tablet 5 mg PO 11/28/22 History calcium citrate 200 mg (950 mg) 200 mg PO DAILY 11/28/22 11/28/22 History tablet fluticasone propionate 50 intranasal TID 11/28/22 History mcg/actuation nasal spray,suspension lidocaine 5 % topical patch patch topical 11/28/22 History magnesium oxide 400 mg (241.3 mg 400 mg PO DAILY 11/28/22 11/28/22 History magnesium) tablet simvastatin 20 mg tablet 20 mg PO 11/28/22 History alendronate 70 mg tablet 70 mg PO 06/03/23 History Allergies Allergy/AdvReac Type Severity Reaction Status Date / Time albuterol Allergy Mild Verified 11/28/22 11:39 Exam Narrative: Exam Narrative: She is alert and appears in no distress. Eyes normal. Pupils equal round reactive to light. Extraocular movements are full. Visual kowalski intact. No facial asymmetry. Oropharynx is normal. Neck is supple without mass or adenopathy. Respirations are clear to auscultation. Good air exchange all lung kowalski. Cardiovascular: S1, S2, 2/6 high-pitched systolic ejection murmur heard best at the upper right sternal border and lower left sternal border. Abdomen: Bowel sounds active. Abdomen is soft without tenderness or mass. Right upper extremity has normal strength motion and sensation. Left upper extremity she is unable to lift her left arm off of her lap. She has near normal strength in elbow flexion extension but almost no strength in shoulder flexion and extension. She has 4/5 strength in firer watertender strength on the left and 3/5 strength in finger extension on the left. 3+ edema bilaterally in her lower extremities. Moderate swelling over the right lateral malleolus where her fracture is located. She has intact pedal pulses. Const: Vital Signs, click to edit/add: Vital Signs - 24 hr 06/03/23 15:17 Temperature 97.3 F L Pulse Rate [Right Pulse Oximeter] 98 Respiratory Rate 20 Blood Pressure [Ri ght Upper Arm] 179/94 H Pulse Oximetry 92 Oxygen Delivery Me thod Room Air Documenting provider has reviewed patient's vital signs: yes Hospitalist - H&P: Result Imaging right Ankle radiograph: Radiologist's impression: INDICATION: Ankle fracture TECHNIQUE: Single view of the right ankle. Comparison 06/03/2023 FINDINGS: Nondisplaced fracture of the distal right fibula. Alignment is unchanged from the prior study. Soft tissue swelling. Assessment and Plan Assessment and plan (1) Ankle fracture: Problem comment: patient appears to have a nondisplaced distal fibular fracture of the right ankle. Consult Ortho for plan of care. Tentatively will be nonweightbearing on that ankle. Unfortunately patient is quite disabled due to her spinal syrinx and left-sided weakness. She is going to be unable to be nonweightbearing on that right side when she has a very poorly functioning left side. Evaluation by therapy, Ortho and then consult with social worker health services to determine disposition plan. Status: Acute Plan Patient has quite limited mobility prior to this injury and now is unable to move without assistance of 2 or 3. Will need to make plans for rehab and recovery with the patient and her family. She is scheduled for a TAVR in 10 , June 13. Will need to review with Cardiology whether that plan needs to be altered given her new disabilities. I am also concerned about her progressive neurologic impairment on the left side. I think she would benefit from consultation with neuro surgery, Dr Khan, to determine if any more intervention would be beneficial. Total time spent today is 100 minutes, 60 minutes in coordination of care and discussing with son and other providers ongoing evaluation management of ankle fracture, left-sided weakness and disability, aortic stenosis and planned TAVR
[2023-06-03 19:00] VITALS: BP 125/76; PULSE 83; RESP 20; TEMP 36.2; O2SAT 91
[2023-06-03 19:33] VITALS: BP 144/87; PULSE 83; RESP 18; RESP 20; TEMP 36.3; O2SAT 91; O2SAT 92; BMI 33.2
[2023-06-03] MEDS: SIMVASTATIN 20 MG TABLET PO (20:24)
[2023-06-03] MEDS: BACLOFEN 10 MG TABLET 20 MG PO (20:24)
[2023-06-03] MEDS: MELATONIN 3 MG TABLET PO (22:55)
[2023-06-03] MEDS: ACETAMINOPHEN 325 MG TABLET PO (22:55)
[2023-06-03 23:00] VITALS: BP 123/77; PULSE 74; RESP 20; O2SAT 93
--- NOTE | 2023-06-04 06:09 | PC.NURSE ---
End of shift [id number] ? Pt alert, oriented x 4, and pleasant. Functionally incontinent of bowel and bladder, does not tolerate stand and pivot with no wt bearing of R foot. Pt reported pain in R ankle as 2/10 which was tolerable. Pt explained that discomfort increased with movement. Pt tolerating RA, regular diet, fluids. Pt observed to sleep, appears to be resting comfortably at end of shift.?
[2023-06-04 07:00] VITALS: BP 124/69; PULSE 78; RESP 18; TEMP 36.7; O2SAT 91
[2023-06-04] MEDS: CALCIUM CARBONATE 500 MG CHEW PO (08:30)
[2023-06-04] MEDS: LACTOBACILLUS ACIDOPHILUS 1 TABLET 1 TAB PO (08:30)
[2023-06-04] MEDS: MAGNESIUM OXIDE 400 MG TABLET PO (08:30)
[2023-06-04] MEDS: BACLOFEN 10 MG TABLET 5 MG PO (08:30)
[2023-06-04] MEDS: SODIUM CHLORIDE 0.9 % (FLUSH) 10 ML SYRINGE 5 ML IVF (09:51)
[2023-06-04] MEDS: FLUTICASONE PROPIONATE NASAL 1 SPRAY NOSTRIL-B (09:51)
--- NOTE | 2023-06-04 10:06 | PM.ORCN ---
History of Present Illness HPI Time Seen by Provider: 08:45 Date Seen: 06/04/23 Consult date: 06/04/23 Requesting physician: Kianna Parsons Consult reason: fracture Chief complaint: Fall Narrative: This pleasant 83-year-old female that presents today for a right ankle fracture. Son, Nirmal, present during this visit. She sustained a fall yesterday (suspect inversion injury) and presented [facility] ED where imaging showed an acute distal fibular fracture, Quispe B. Patient is unable to weightbear and requires additional assistance. Therefore, the decision was made to admit Ondina for further evaluation. Today, she complains of diffuse right ankle/foot pain. Associated symptoms include ecchymosis and swelling. Presents in a walking boot. Pertinent PMHx includes: DVT (left lower extremity; on anticoagulation), spinal syrinx causing left-sided weakness, severe aortic stenosis. Patient has an upcoming TAVR procedure scheduled for 06/13/23. No previous right foot/ankle surgical history. [facility] Medical History Durable power of deputy county attorney in chart Social History (Updated 06/03/23 @ 18:26 by López Jara MD) Narrative: patient lives on the [facility] in independent housing unit with her . They have marble mechanic helper for 6-8 hours a day to help them. Her has dementia and needs 20/11 supervision. Code status is DNR. Her daughter Yesy has and son Alex have healthcare power of deputy county attorney. She does not smoke. She rarely drinks alcohol. What is your current living situation?: I presently have a place to live Problems where you live: no known problems Problems where you live details: n/A In the past 12 months, utilities in danger of being shut off: no In past 12 months, lack of transportation kept you from medical appts, meetings, work, or getting things needed for daily living: no In the past 12 mos, have been you worried that your food would run out before you had money to buy more?: never true In the past 12 mos, the food you bought just didn't last and you didn't have money to buy more?: never true Highest level of school completed/degree received: don't know Smoking Status: Never smoker Do you use any of these nicotine containing products: None Second hand tobacco smoke exposure: No How often do you have a drink containing alcohol: never How often do you have six or more drinks on one occasion: Never AUDIT-C Alcohol total score: 0 Non-prescribed substance use: denies use Caffeine: No How often does anyone, including family, friends and others, physically hurt you: never How often does anyone, including family, friends and others, insult or talk down to you: never How often does anyone, including family, friends and others, threaten you with harm: never How often does anyone, including family, friends and others, scream or curse at you: never service: No Meds Home Medications and Allergies Home Medications Medication Instructions Recorded Confirmed Type Lactobacillus acidophilus 500 500 mmu cells PO DAILY 11/28/22 06/04/23 History million cell capsule acetaminophen 325 mg capsule 325 mg PO Q4H PRN 11/28/22 06/04/23 History apixaban 5 mg tablet (Eliquis) 5 mg PO Q12H 11/28/22 06/04/23 History baclofen 20 mg tablet 20 mg PO HS 11/28/22 06/04/23 History baclofen 5 mg tablet 5 - 10 mg PO Q12H PRN 11/28/22 06/04/23 History calcium citrate 200 mg (950 mg) 200 mg PO DAILY 11/28/22 06/04/23 History tablet fluticasone propionate 50 1 spray intranasal TID PRN 11/28/22 06/04/23 History mcg/actuation nasal spray,suspension magnesium oxide 400 mg (241.3 mg 400 mg PO DAILY 11/28/22 06/04/23 History magnesium) tablet simvastatin 20 mg tablet 20 mg PO QPM 11/28/22 06/04/23 History alendronate 70 mg tablet 70 mg PO QWEEK 06/03/23 06/04/23 History Allergies Allergy/AdvReac Type Severity Reaction Status Date / Time albuterol Allergy Mild Verified 11/28/22 11:39 Ortho Exam Narrative Exam Narrative: Patient is alert and oriented x3. No acute distress. Converses with nonlabored breathing. Presently in a walking boot. Right ankle exam: No erythema, induration or cutaneous changes. No open wounds. Diffuse right ankle swelling. Ecchymosis present over the lateral hindfoot. Moderate tenderness diffusely over right ankle (medial, lateral and anterior), right distal anterior leg and right foot. Passive Range of motion: Plantar flexion/dorsiflexion: 5? each. Ankle stability and strength testing deferred for obvious reasons. CMS intact with 2+ dorsalis pedis and posterior tibialis pulses. [place], warm digits and brisk capillary refill. Const Vital Signs, click to edit/add: Vital Signs - 24 hr 06/03/23 15:17 06/03/23 19:00 06/03/23 19:33 Temperature 97.3 F L 97.2 F L 97.3 F L Pulse Rate [Left Pulse Oximeter] 83 83 Pulse Rate [Right Pulse Oximeter] 98 Respiratory Rate 20 20 18 Blood Pressure [Right Arm] 125/76 144/87 H Blood Pressure [Right Upper Arm] 179/94 H Pulse Oximetry 92 91 92 Oxygen Delivery Method Room Air Room Air Room Air 06/03/23 19:33 06/03/23 23:00 06/04/23 07:00 Temperature Pulse Rate [Left Pulse Oximeter] 74 78 Pulse Rate [Right Pulse Oximeter] Respiratory Rate 20 20 18 Blood Pressure [Right Arm] 123/77 Blood Pressure [Right Upper Arm] Pulse Oximetry 91 93 Oxygen Delivery Method Room Air Room Air 06/04/23 07:00 Temperature 98.0 F Pulse Rate [Left Pulse Oximeter] 78 Pulse Rate [Right Pulse Oximeter] Respiratory Rate 18 Blood Pressure [Right Arm] 124/69 Blood Pressure [Right Upper Arm] Pulse Oximetry 91 Oxygen Delivery Method Room Air Assessment and Plan Assessment and plan (1) Ankle fracture: Problem comment: Closed treatment of a closed, acute right distal fibular fracture, Brittaney Fonseca. DOI: 06/03/23. Status: Acute Assessment and Plan: Ondina, her son and I reviewed her images together. This fracture may be treated non operatively with conservative treatment measures and immobilization. Through shared decision making with both Ondina and her son, Nirmal, and I elected to place Ondina in a short leg sugar tong splint for immobilization. Post splint instructions provided. Discussed conservative treatment measures including rest, ice, compression and elevation above the heart. Pain has been adequately managed thus far with only acetaminophen, so acetaminophen may be continued along with alternating with an NSAID for pain management. Patient will remain non-weightbearing x 2 weeks, utilize wheelchair for assistance. Ondina will follow-up with myself in 2 weeks for clinical re-evaluation, likely transition into CAM walking boot and initiation of Physical Therapy. Discharge location pending, dependent upon social work msw consult. Questions and concerns were discussed at length. Phone Orthopedics with any questions or concerns [phone]. In regards to Ondina's upcoming TAVR procedure, patient may procedure with this procedure as recommended by her hospitality coordinator. This Orthopedic injury is a closed injury without sign/symptoms of infection. Total time spent: Total time spent approximately 60 minutes with greater than 50% in coordination of care, patient education and answering patient (and son's) questions in depth.
--- NOTE | 2023-06-04 10:38 | PC.SOCIAL ---
Discharge planning: Pt has [employer] insurance. Contacted the following facilities regarding bed availability for short term rehab without providing HIPAA protected information: 1. [facility] - left message awaiting call back. 2. [facility] - left message awaiting call back. 3. [facility]- left message awaiting call back. 4. [facility] - has available beds and can look at referral if sent. 5. [facility] - no availability. 6. [facility]- Left message and awaiting call back. tube worker to follow up as needed.
[2023-06-04 11:00] VITALS: BP 120/66; PULSE 79; RESP 18; TEMP 36.8; O2SAT 90
[2023-06-04] MEDS: APIXABAN 5 MG TABLET PO ×2 (11:41→23:03)
[2023-06-04] MEDS: ACETAMINOPHEN 325 MG TABLET PO (11:49)
[2023-06-04] MEDS: SENNOSIDES/DOCUSATE TABLET PO (11:49)
--- NOTE | 2023-06-04 12:28 | PM.IMPN1 ---
Progress Note: A&P Assessment and plan (1) Ankle fracture: Problem details: Closed treatment of a closed, acute right distal fibular fracture, Brittaney Fonseca. DOI: 06/03/23. I spoke with Dr. Milan who recommended a splint. calixto Rudolph, placed that today. Pain control is adequate with acetaminophen. Status: Acute (2) Fall: Problem details: PT and OT evaluation. Given her baseline neurologic deficits and a fracture of her right lower extremity, she will likely need long-term facility for rehab. Status: Acute (3) Severe aortic stenosis: Problem details: Scheduled to have a TAVR in 3 weeks Status: Chronic (4) History of DVT (deep vein thrombosis): Problem details: One occurred after a left ankle fracture ORIF and the other occurred after her spinal surgery 4 years ago. She has been on long-term anticoagulation with apixaban since that time. Since she is not having surgery, will restart apixaban. 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 Currently has a Garcia catheter. I will leave that in today yet as she is having so much difficulty moving, but will do a trial of voiding without the Garcia tomorrow. Status: Acute Time Spent With Patient Total time spent: Today I spent 35 minutes rounding on the patient. Greater than 50% included discussing care with the patient and her son, the team, reviewing data, updating and managing the care plan. Subjective Time Seen by Provider: 08:09 Date Seen: 06/04/23 Interval history: Ondina's son is in the room with her today. He has many questions, most of them are regarding plan of care after discharge. He is concerned about the cost of a long-term facility. Ondina is doing well but is having a lot of trouble moving and is getting a lot of help from the nurses to do so. She notes at home she can use a walker, but her right leg leads and her left leg is typically not very strong and has been getting worse. She has not gone back to visit her neurosurgeon because she does not want spinal surgery even if things are getting worse. She does not have much pain in her leg when it is still. She feels like she will be able to participated therapies today. Exam Narrative: Exam Narrative: General: No acute distress. Awake, alert, oriented x3. No pallor. No jaundice. Oropharynx: Clear. Mucous membranes moist. Cardiovascular: Regular rate and rhythm. Grade 2/6 systolic murmur loudest at the right upper sternal border and radiates to both carotids. Respiratory: Clear to auscultation bilaterally. No wheezes or crackles. Abdomen: Bowel sounds present. Soft, nondistended, nontender. Extremities: Left arm strength is 0/5 left leg strength 2 to 3/5. Right lower extremity is in a boot. Neurovascularly intact. Const: Vital Signs, click to edit/add: Vital Signs - 24 hr 06/03/23 15:17 06/03/23 19:00 06/03/23 19:33 Temperature 97.3 F L 97.2 F L 97.3 F L Pulse Rate [Left P ulse Oximeter] 83 83 Pulse Rate [Right Pulse Oximeter] 98 Respiratory Rate 20 20 18 Blood Pressure [Ri ght Arm] 125/76 144/87 H Blood Pressure [Ri ght Upper Arm] 179/94 H Pulse Oximetry 92 91 92 Oxygen Delivery Me thod Room Air Room Air Room Air 06/03/23 19:33 06/03/23 23:00 06/04/23 07:00 Temperature Pulse Rate [Left P ulse Oximeter] 74 78 Pulse Rate [Right Pulse Oximeter] Respiratory Rate 20 20 18 Blood Pressure [Ri ght Arm] 123/77 Blood Pressure [Ri ght Upper Arm] Pulse Oximetry 91 93 Oxygen Delivery Me thod Room Air Room Air 06/04/23 07:00 06/04/23 11:00 Temperature 98.0 F 98.2 F Pulse Rate [Left P ulse Oximeter] 78 79 Pulse Rate [Right Pulse Oximeter] Respiratory Rate 18 18 Blood Pressure [Ri ght Arm] 124/69 120/66 Blood Pressure [Ri ght Upper Arm] Pulse Oximetry 91 90 Oxygen Delivery Me thod Room Air Room Air
--- NOTE | 2023-06-04 14:37 | PC.SOCIAL ---
Addendum entered by NATHANIEL Aceves 06/04/23 16:34: Received a phone call from pt's son, Alex Verma. Provided pt's son with update on discharge plans. Pt's son states that he is hopeful pt can get into a private room at a SNF as this is important. Pt's asks for information on [facility]. Informed pt's son that [facility] is not a [employer] contracted facility. Pt's son may call [employer] and discuss this further. This worker will keep pt's son updated on discharge plans. Original Note: Discharge planning- Per therapy, pt will need short-term rehab stay. Met with pt to discuss discharge plans. Pt initially did not want SNF outside of [place], however, explained to pt that since pt has [employer] insurance we have to look at SNF's that are contracted with [employer]. Discussed SNF options with pt. Pt would like first option to be [facility] in [place] as her previously had a rehab stay at the facility and family likes the facility. Second choice would be the [facility] in [place]. Sent referrals to the following SNF's for placement. 1. [facility]- They have an opening. Faxed referral to [phone]. 2. [facility]- They have an opening. Faxed referral to [phone]. 3. [facility]- They have an opening. Faxed referral to [phone]. Social work will continue to follow up as needed.
[2023-06-04 15:00] VITALS: BP 101/73; PULSE 77; RESP 16; TEMP 36.7; O2SAT 90
[2023-06-04 19:00] VITALS: BP 127/71; PULSE 92; RESP 18; TEMP 36.5; O2SAT 91
[2023-06-04] MEDS: BACLOFEN 10 MG TABLET 20 MG PO (21:13)
[2023-06-04] MEDS: MELATONIN 3 MG TABLET PO (21:13)
[2023-06-04] MEDS: SIMVASTATIN 20 MG TABLET PO (21:13)
[2023-06-04 23:00] VITALS: BP 111/63; PULSE 89; RESP 18; TEMP 36.9; O2SAT 89
[2023-06-05 03:38] VITALS: BP 110/64; PULSE 73; RESP 18; TEMP 36.4; O2SAT 92
--- NOTE | 2023-06-05 06:26 | PC.NURSE ---
23-07: pleasant and cooperative. Incont. No BM. No c/o pain. CPAP on at HS. Right ankle wrapped and elevated. 2+ pitting to LLE.?
[2023-06-05 07:00] VITALS: BP 104/61; PULSE 72; RESP 18; TEMP 36.1; O2SAT 93
[2023-06-05] MEDS: SODIUM CHLORIDE 0.9 % (FLUSH) 10 ML SYRINGE 5 ML IVF (09:02)
[2023-06-05] MEDS: MAGNESIUM OXIDE 400 MG TABLET PO (09:02)
[2023-06-05] MEDS: BACLOFEN 10 MG TABLET 5 MG PO (09:02)
[2023-06-05] MEDS: FLUTICASONE PROPIONATE NASAL 1 SPRAY NOSTRIL-B (09:02)
[2023-06-05] MEDS: LACTOBACILLUS ACIDOPHILUS 1 TABLET 1 TAB PO (09:02)
[2023-06-05] MEDS: CALCIUM CARBONATE 500 MG CHEW PO (09:02)
[2023-06-05 11:00] VITALS: BP 124/95; PULSE 78; RESP 18; TEMP 36.3; O2SAT 91
[2023-06-05] MEDS: APIXABAN 5 MG TABLET PO ×2 (11:17→22:25)
--- NOTE | 2023-06-05 12:49 | P.IMPN_ITS ---
Progress Note: A&P Assessment and plan (1) Ankle fracture: Problem details: Closed treatment of a closed, acute right distal fibular fracture, Brittaney Fonseca. DOI: 06/03/23. I spoke with Dr. Milan who recommended a splint. calixto Rudolph, placed splint 2/5. F/u with ortho in 2 weeks. Pain control is adequate with acetaminophen. Status: Acute (2) Fall: Problem details: PT and OT evaluation. Given her baseline neurologic deficits and a fracture of her right lower extremity, she will need half-way facility for rehab. No bed yet available, no safe discharge plan. Status: Acute (3) Severe aortic stenosis: Problem details: - Scheduled to have a TAVR in 3 weeks - I recommended to son that he call her product applications engineer to give them an update. I don't think this will delay her TAVR, but want them to be aware. Status: Chronic (4) History of DVT (deep vein thrombosis): Problem details: One occurred after a left ankle fracture ORIF and the other occurred after her spinal surgery 4 years ago. She has been on long-term anticoagulation with apixaban since that time. Since she is not having surgery, apixaban was restarted. Status: Chronic (5) Syrinx of spinal cord: Problem details: - Causing left-sided weakness - I have recommended that she follow up with her neurologist as an outpatient to discuss further treatment options. 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 Currently has a Garcia catheter. Will do trial of voiding without catheter today. Status: Acute Time Spent With Patient Total time spent: Today I spent 25 minutes rounding on the patient. Greater than 50% included discussing care with the patient and her son, the team, reviewing data, updating and managing the care plan. Subjective Time Seen by Provider: 08:55 Date Seen: 06/05/23 Interval history: Ondina has no complaints. Her son is with her again today. Questions answered. Exam Narrative: Exam Narrative: General: No acute distress. Awake, alert, oriented. Cardiovascular: Regular rate and rhythm. Grade 2/6 systolic murmur loudest at the right upper sternal border and radiates to both carotids. Respiratory: Clear to auscultation bilaterally. No wheezes or crackles. Abdomen: Bowel sounds present. Soft, nondistended, nontender. Extremities: Right lower extremity is in a splint. Const: Vital Signs, click to edit/add: Vital Signs - 24 hr 06/04/23 15:00 06/04/23 15:00 06/04/23 19:00 Temperature 98.1 F 97.7 F Pulse Rate [Left P ulse Oximeter] 77 77 92 Respiratory Rate 16 16 18 Blood Pressure [Ri ght Arm] 101/73 127/71 Pulse Oximetry 90 91 Oxygen Delivery Me thod Room Air Room Air 06/04/23 23:00 06/04/23 23:00 06/05/23 03:38 Temperature 98.5 F 97.6 F Pulse Rate [Left P ulse Oximeter] 89 73 Respiratory Rate 18 18 18 Blood Pressure [Ri ght Arm] 111/63 110/64 Pulse Oximetry 89 92 Oxygen Delivery Me thod Room Air Room Air 06/05/23 07:00 06/05/23 07:00 06/05/23 11:00 Temperature 97.0 F L 97.4 F L Pulse Rate [Left P ulse Oximeter] 72 72 78 Respiratory Rate 18 18 18 Blood Pressure [Ri ght Arm] 104/61 124/95 H Pulse Oximetry 93 91 Oxygen Delivery Me thod Room Air Room Air
--- NOTE | 2023-06-05 14:11 | PC.SOCIAL ---
Discharge planning- Pt was accepted for admission to both [facility] and [facility]. Discussed discharge plans with pt's son, Alex. Alex is concerned about pt getting to outpatient appointments with Cardiology at [facility] on of this week at 10:50 am and next Sunday the . Discussed with Miya at [facility] and they are unable to find medical transport from their facility to [facility] in short notice. Pt's son would like pt to go to [facility] due to location as it is closer to [facility]. Phone call to Roberto at [facility]. Roberto will submit for prior authorization from pt's [employer] insurance plan. Private room is available if pt pays $60/day. Roberto requests that information be put in pt's discharge paperwork on pt's outpatient appointments with cardiology. Provided update to charge nurse including [facility] information on pt's outpatient appointments with [facility]. Provided update to pt's son. Social work will continue to follow up as needed.
[2023-06-05 15:00] VITALS: BP 139/80; PULSE 79; RESP 16; TEMP 36.3; O2SAT 91
[2023-06-05 19:00] VITALS: BP 155/87; PULSE 91; RESP 18; TEMP 36.5; O2SAT 92
[2023-06-05] MEDS: SIMVASTATIN 20 MG TABLET PO (22:25)
[2023-06-05] MEDS: MELATONIN 3 MG TABLET PO (22:26)
[2023-06-05] MEDS: BACLOFEN 10 MG TABLET 20 MG PO (22:26)
[2023-06-05 22:34] VITALS: BP 144/78; PULSE 86; RESP 20; TEMP 36.5; O2SAT 93
--- NOTE | 2023-06-05 23:02 | PC.NURSE ---
Patient pleasant and awake most of the day. Up to chair for meals and ambulating with EZ stand and assist of 2. Incontinent during the morning hours. Nurse talked with patient about bladder regimen to keep dry. Patient stated she can feel when she is going but was told to just go. Educated patient on the importance of calling to use the restroom, not sitting in a solid brief and skin breakdown. Patient calling appropriately to get up to bathroom for the rest of the shift. Vitally stable. Still non weight bearing to the right leg. Left sided weakness normal. Uses call light appropriately. Nursing to continue to monitor and prepare for discharge to SNF tomorrow.
[2023-06-06 03:53] VITALS: BP 117/67; PULSE 76; RESP 18; TEMP 36.3; O2SAT 91
--- NOTE | 2023-06-06 07:38 | PC.NURSE ---
0905-2305: Patient cooperative with cares. A&Ox3. R. ankle w/splint and Humberto wrap C/D/I. Elevated. CMS intact. A2/EZ stand. Continent. Denies pain.
[2023-06-06 08:30] VITALS: BP 122/71; PULSE 76; RESP 18; TEMP 36.3; O2SAT 92
[2023-06-06] MEDS: LACTOBACILLUS ACIDOPHILUS 1 TABLET 1 TAB PO (08:45)
[2023-06-06] MEDS: BACLOFEN 10 MG TABLET 5 MG PO (08:46)
[2023-06-06] MEDS: MAGNESIUM OXIDE 400 MG TABLET PO (08:46)
[2023-06-06] MEDS: CALCIUM CARBONATE 500 MG CHEW PO (08:46)
[2023-06-06] MEDS: FLUTICASONE PROPIONATE NASAL 1 SPRAY NOSTRIL-B (08:46)
[2023-06-06] MEDS: SODIUM CHLORIDE 0.9 % (FLUSH) 10 ML SYRINGE 5 ML IVF (08:46)
[2023-06-06] MEDS: APIXABAN 5 MG TABLET PO (10:48)
--- NOTE | 2023-06-06 12:05 | PM.DS1 ---
DS: Providers Provider Date Seen: 06/06/23 Date of admission: 06/03/23 17:30 Primary care physician: Carlita Gage MD Admitting Clinician: López Jara MD Consults: 06/03/23 17:57 Consult to Physician [CONS] Urgent Comment: Consulting Provider: Stanley Shaffer Has provider been notified: Yes 06/03/23 18:01 Consult to Occupational Therapy [CONS] Routine Comment: Reason(s) for OT Consult:: Evaluate and Treat Any Restrictions?:: No Restrictions Consult to Physical Therapy [CONS] Routine Comment: Reason(s) for PT Consult:: Evaluate and Treat Any Restrictions?:: No Restrictions Consult to [employer] [CONS] Routine Comment: Reason for Consult:: Discharge Planning Needs 06/04/23 00:21 Consult to Occupational Therapy [CONS] Routine Comment: Reason(s) for OT Consult:: Evaluate and Treat Any Restrictions?:: Non Wt Bearing Consult to Physical Therapy [CONS] Routine Comment: Reason(s) for PT Consult:: Evaluate and Treat Any Restrictions?:: Non Wt Bearing Attending Physician on discharge: Jazmín Velasco [facility], PA-C [place] [facility] Date of Discharge: 06/06/23 DS: Diagnosis Discharge Diagnosis (1) Ankle fracture: Status: Acute Problem details: Closed, acute right distal fibular fracture, DOI: 06/03/23. Non operative, conservative management with short-leg sugar-tong splint for immobilization. Nonweightbearing x2 weeks, utilize wheelchair for assistance. it is okay for Ondina to very briefly place weight on her right ankle/foot to get in/out of a vehicle and do pivot transfers. Outpatient follow-up in orthopedic clinic in 2 weeks for clinical re-evaluation, likely transition into a Cam walking boot. (2) Fall: Status: Acute Problem details: Given her baseline neurologic deficits and a fracture of her right lower extremity, [facility] (3) Severe aortic stenosis: Status: Chronic Problem details: Scheduled to have a TAVR on 06/13/2023. (4) History of DVT (deep vein thrombosis): Status: Chronic Problem details: One occurred after a left ankle fracture ORIF and the other occurred after her spinal surgery 4 years ago. She has been on long-term anticoagulation with apixaban since that time. Continued on anticoagulation. Last dose on Sunday06/10/2023, preoperatively for TAVR on 06/13/2023 (5) Syrinx of spinal cord: Status: Chronic Problem details: Chronic left-sided weakness Recommended that she follow up with her neurologist as an outpatient to discuss further treatment options. 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 DS: Summary Hospital Course Hospital Course: [age] year old female past medical history significant for syrinx of spinal cord, left-sided weakness, DVT, severe aortic stenosis, urinary retention was admitted to the medical floor for further management right distal fibular fracture following a fall at home. Course of care and details as noted above. Non operative conservative management of fracture. Outpatient follow-up with Orthopedic surgery in 2 weeks. Recommend outpatient follow-up with Neurology for further evaluation/management of history of syrinx a spinal cord Remainder of chronic medical comorbidities were monitored and managed with home medications. Status at Discharge Functional status at discharge: wheelchair bound Overall status at discharge: patient is not back to baseline Time Spent with Patient Time attestation: Total time spent providing and/or coordinating discharge services: Time spent: Greater than 30 minutes Exam Narrative: Exam Narrative: PHYSICAL EXAM General: Pleasant, conversant, NAD Cardiovascular: RRR Pulmonary: No dyspnea Neurological: Alert, answering questions appropriately Skin: Warm, dry. Const: Vital Signs, click to edit/add: Vital Signs - 24 hr 06/05/23 15:00 06/05/23 15:00 06/05/23 19:00 Temperature 97.3 F L 97.7 F Pulse Rate [Left P ulse Oximeter] 79 79 91 Respiratory Rate 16 16 18 Blood Pressure [Ri ght Arm] 139/80 155/87 H Pulse Oximetry 91 92 Oxygen Delivery Me thod Room Air Room Air 06/05/23 22:34 06/06/23 03:53 06/06/23 08:30 Temperature 97.7 F 97.4 F L Pulse Rate [Left P ulse Oximeter] 86 76 76 Respiratory Rate 20 18 Blood Pressure [Ri ght Arm] 144/78 H 117/67 Pulse Oximetry 93 91 Oxygen Delivery Me thod Room Air Room Air 06/06/23 08:30 Temperature 97.4 F L Pulse Rate [Left P ulse Oximeter] 76 Respiratory Rate 18 Blood Pressure [Ri ght Arm] 122/71 Pulse Oximetry 92 Oxygen Delivery Me thod Room Air Discharge Plan Discharge Disposition: Xfer SNF Date of Admission: 06/03/23 17:30 Attending Provider on Discharge: Jazmín Velasco Consulting Providers: Stanley Shaffer; Klaudia Downey Primary Care Provider: Carlita Gage Condition: Stable Anticipated Discharge Date/Time: 06/06/23 11:52 Discharge Medications: Continued fluticasone propionate 50 mcg/actuation spray,suspension 1 spray INTRANASAL TID PRN Patient Comments: [NO ORIGINAL SIG] baclofen 20 mg tablet 20 mg PO HS Eliquis 5 mg tablet 5 mg PO Q12H simvastatin 20 mg tablet 20 mg PO QPM baclofen 5 mg tablet 5 - 10 mg PO Q12H PRN Lactobacillus acidophilus 500 million cell capsule 500 mmu cells PO DAILY magnesium oxide 400 mg (241.3 mg magnesium) tablet 400 mg PO DAILY acetaminophen 325 mg capsule 325 mg PO Q4H PRN calcium citrate 200 mg (950 mg) tablet 200 mg PO DAILY alendronate 70 mg tablet 70 mg PO QWEEK Discharge Orders: Discharge Order (Routine); Ordered 06/06/23 Ordered By: Jazmín Velasco Additional Instructions: Cardiology appointments: 06/07/2023: Check-in time 10:[address] [facility] clinic TAVR procedure Sunday06/13/2023: Arrival time and instructions will be provided during appointment on 06/07/2023 LAST DOSE OF ELIQUIS SHOULD BE ON Sunday06/10/2023 Right distal fibular fracture: Fracture will be treated non operatively with conservative treatment measures and immobilization. Patient was placed in a short leg sugar tong splint for immobilization. Discussed conservative treatment measures including rest, ice, compression and elevation above the heart. Pain Management with acetaminophen along with alternating with an NSAID. Patient will remain non-weightbearing x 2 weeks, utilize wheelchair for assistance. Outpatient follow-up in orthopedic clinic 2 weeks for clinical re-evaluation, likely transition into CAM walking boot and initiation of Physical Therapy. Per orthopedic surgery, no contraindications to upcoming cardiac surgery (proceed as planned). It is okay for Ondina to very briefly place weight on her right ankle/foot to get in/out of a vehicle and do pivot transfers Ortho (Klaudia ELLIOTT) 06/18/23 Recommend outpatient follow-up with neurologist for syrinx of spinal cord. Activity Level: No Weight Bearing Activity Detail: Per orthopedic surgery: Patient will remain non-weightbearing x 2 weeks, utilize wheelchair for assistance. Outpatient Orthopedic follow-up in 2 weeks for clinical re-evaluation, likely transition into CAM walking boot and initiation of Physical Therapy It is okay for Ondina to very briefly place weight on her right ankle/foot to get in/out of a vehicle and do pivot transfers Discharge Diet: Regular Follow Up Appointments: Carlita Gage MD [Primary Care Provider] - 06/15/23 (Post hospital follow-up) Klaudia Downey PA-C [[employer] [employer]] - 06/18/23 Forms: [facility] Info Instructions Admit to: SNF Discharge Potential: Fair Length of Stay: <30 days Can use facility standing orders?: Yes Code Status: DNR/DNI TEDs: Bilateral Knee Rehab Potential: Fair Therapy: Physical Therapy and Occupational Therapy Therapy Orders: Evaluate and Treat Therapy Orders Additional Information: Nonweightbearing until follow-up with orthopedic clinic 06/18/2023 Oxygen: No Urinary Catheter: No Orders are good >30 days: No Signature: RAN Bradshaw, PA-C [place] [facility]
--- NOTE | 2023-06-06 12:13 | PC.SOCIAL ---
Addendum entered by NATHANIEL Aceves 06/06/23 13:24: Discharge orders were secure e-mailed to Roberto Carver at [facility] at 1:20 pm. Original Note: Discharge planning- Received a phone call from Roberto in admissions at [facility]. [facility] received prior authorization from pt's health insurance to admit. Pt is able to admit to [facility] today. Met with pt's son Alex and confirmed that pt's son would like pt in a private room and will pay the private pay fee of $60 a day. Pt will transport via EMS as pt is requiring an EZ stand for transfers. Pt's son provided this worker with follow up appointment information for outpatient cardiology appointments at [facility]. This worker provided document to MD to include in discharge orders. Provided update to charge nurse and MD. Charge nurse will set EMS transport. E-mail to Roberto at [facility] providing her with an update on transport and informed pt would like a private room. Completed preadmission screening. Confirmation #[id number]. Secure e-mailed a copy to Roberto at [facility]. Social work will follow up as needed.
== END 2023-06-06 15:00 ==
LOC: ED 17:00 → MEDSURG 17:31
PROVIDERS: Admitting Provider Family Medicine; Emergency Provider Family Medicine; PCP Internal Medicine; Visit Provider Family Medicine
DX: S82.891A Other fracture of right lower leg, initial encounter for closed fracture (principal); M79.606 Pain in leg, unspecified; W19.XXXA Unspecified fall, initial encounter; I35.0 Nonrheumatic aortic (valve) stenosis; G95.0 Syringomyelia and syringobulbia; R29.818 Other symptoms and signs involving the nervous system; R29.898 Other symptoms and signs involving the musculoskeletal system; R60.0 Localized edema; R33.9 Retention of urine, unspecified; M21.372 Foot drop, left foot; G81.94 Hemiplegia, unspecified affecting left nondominant side; E78.5 Hyperlipidemia, unspecified; R26.2 Difficulty in walking, not elsewhere classified; M81.0 Age-related osteoporosis without current pathological fracture; H90.3 Sensorineural hearing loss, bilateral; G47.33 Obstructive sleep apnea (adult) (pediatric); R01.1 Cardiac murmur, unspecified; M25.571 Pain in right ankle and joints of right foot; M79.671 Pain in right foot; G89.29 Other chronic pain; Z79.01 Long term (current) use of anticoagulants; Z98.890 Other specified postprocedural states; Z98.42 Cataract extraction status, left eye; Z98.41 Cataract extraction status, right eye; Z90.710 Acquired absence of both cervix and uterus; Z90.89 Acquired absence of other organs; Z86.718 Personal history of other venous thrombosis and embolism; Z85.3 Personal history of malignant neoplasm of breast; Z66 Do not resuscitate
CPT/HCPCS: 73600; 73610; 97110; 97162; 97165; 97530; 97535; 99284; A9270; G0378

== ENCOUNTER 2023-06-06 14:57 | Outpatient (CLI) | payer OTHER, SELFPAY ==
--- OUTSIDE RECORDS SUMMARY | 2023-06-08 17:07 | XMS_ITS | Clinical Summary ---
Author Name Unknown Organization [employer] [facility] s & [facility] Address [place], [place] [address] Care Team Providers Care Health Information Managers Name Role Phone Carlita Gage MD Primary Care Provider [phone] Pebbles Solano Unavailable [phone] Tere Hill RN Unavailable Holly Johnson DO Unavailable [phone] [facility] [place] Unavailable Allergies Active Allergy Reactions Criticality Noted Date [...] 23 Active baclofen (LIORESAL) 5 mg tab tabletIndications:[facility] Take 1-2 Tablets (5-10 mg) by mouth [...] severe 2023 Nonrheumatic mitral valve regurgitation 09/08/19 21 Quadriplegia, unspecified 09/07/2020 History of DVT (deep [...] Encounters Date Type Department Care Team Description 06/08/2023 Orders Only [facility] [address] [place] [address] Aneudy Ojeda NP <No scans attached> 06/07/2023 11:30 AM GARDEN CONSULTANT Office Visit [facility] [address] [facility] [address] [place] [phone] Aneudy Ojeda NP CV Valve Est (VALVE EST:PRE-OP TAVR, LABS PRIOR,NEEDS EKG,KCCQ12, 5M WALK,LETTER SENT, HJK//PCP: Carlita Gage MD/) 06/07/2023 11:00 AM GARDEN CONSULTANT Orders Only [facility] [address] [facility] [address] [place] [phone] Lab (/) 06/07/2023 Travel 06/06/2023 Telephone [facility] [address] [place] [address] Davin Steven MD Health Maintenance Update (Recent leg fracture) 06/04/2023 Telephone [facility] [address] [place] [address] Davin Steven MD Health Maintenance Update (Post valve conference discussion /) 06/01/2023 11:00 AM GARDEN CONSULTANT Telemedicine [facility] [address] [phone] Bruce Guadalupe MD Fatigue 06/01/2023 Telephone [facility] [address] [place] [address] Davin Steven MD Questions 05/31/2023 Telephone [facility] [address] [place] [address] Davin Steven MD Questions 05/31/2023 Travel 05/24/2023 2:30 PM GARDEN CONSULTANT Ancillary Procedure [address] [place] [address] 05/24/2023 1:30 PM GARDEN CONSULTANT Office Visit [address] [place] [address] Davin Steven MD CV General Cardiology New (Initial visit, ref by Too for severe . ) 05/24/2023 Travel 05/22/2023 Travel 05/22/[address] [address] Carlita Gage MD Refill Request (baclofen (LIORESAL) 20 mg tablet ) 05/22/[address] [address] Carlita Gage MD Refill Request (Eliquis) 2023 Telephone [facility] [address] [place] [address] Cardiology, Anw Appointment (ANY CARD) 05/16/2023 11:00 AM GARDEN CONSULTANT Ancillary Procedure [facility] [address] [place] [address] 05/16/2023 10:30 AM GARDEN CONSULTANT Ancillary Procedure [facility] [address] [place] [address] 05/15/2023 Travel 04/06/2023 9:00 AM GARDEN CONSULTANT Office Visit [address] [address] Carlita Gage MD Medicare ANNUAL (subsequent) Visit (Update vaccines /Check ears ); Immunization/Inject ion (COVID-19 vaccine); Immunization/Inject ion 04/06/2023 Travel 04/04/2023 Travel 03/28/2023 11:30 AM GARDEN CONSULTANT Office Visit [facility] [address] [place] [phone] Inocente Vila, DPM Consult (Toenail fungus) 03/28/2023 Travel 03/08/2023 Telephone [facility] [address] [place] [address] Carlita Gage MD Medication Management (baclofen (LIORESAL) 5 mg tab tablet) from Last 3 Months Immunizations Name Administration Dates Next Due COVID-19 Vaccine Spikevax (M oderna 50mcg/0.5mL) 12YO+ [id number] Formula PF 04/06/2023 COVID-19 vaccine (Moderna 100mcg/0.5mL) PF, MDV 07/08/2020,06/10/2020 COVID-19 vaccine (Pfizer-Bio NTech 30mcg/0.3mL) 12YO+ BIVALENT PF, MDV 02/22/2022 [...] of emphyse ma Heart Disease Mother of [place] Stroke Sister 3 Good Health Son Relation [...] Sign Reading Time Taken Comments Blood Pressure 122/72 06/07/2023 11:12 AM GARDEN CONSULTANT Pulse 82 06/07/2023 11:12 AM GARDEN CONSULTANT Temperature 35.2 ??C (95.3 ??F) 10/05/2022 2:33 PM CD T Respiratory Rate 64 10/05/2022 2:33 PM CDT Oxygen Saturation 88% 06/07/2023 11:12 AM GARDEN CONSULTANT Inhaled Oxygen Concentration - - Weight 81.6 kg (180 lb) 06/07/2023 11:12 AM GARDEN CONSULTANT Height 156.8 cm (5' 1.75) 06/07/2023 11:[address] Body Mass Index 33.19 06/07/2023 11:12 AM GARDEN CONSULTANT Plan of Treatment Upcoming Encounters Date Type Department Care Team (Late st Contact Info) Description 06/13/2023 3:00 PM GARDEN CONSULTANT Appointment [facility] [address] [place] [address] Davin Steven MD [address] [place], [place] [phone] Health Maintenance Due Date Last Done Comments COVID-19 vaccine series ( season) 2023 04/06/2023, 02/22/2022, 12/14/2021, Additional history exists Depression screening for age 12+ 04/06/2024 04/06/2023, 10/27/2021, 10/26/2021, Additional history exists Medicare Wellness for age 65+ 04/06/2024, 10/26/2021, 09/07/2020, Additional history exists BMI (ht and wt on same day) for age 18+ 06/07/2024 06/07/2023, 05/24/2023, 10/26/2021, Additional history exists Tetanus booster 08/13/2026 08/13/2016, [...] history exists Medical Devices Implanted Type Area Retail Brand Ambassador Device Identifier Shelf Expiration Date Model / Serial / Lot Screw Neuro 4mm Matrixneuro Slf Drill Titnm - [id number] Implanted:Qty: 9 on 06/05/2019 by Clement Khan MBChB at [facility] [employer] CMF [id number]. [id number] .[id number]# / / Plate Facial 7hole Synthes Adaption - [id number] Implanted:Qty: 2 on 06/05/2019 by Clement Khan MBChB at [facility] [employer] CMF [id number] # / / Procedures Procedure Name Priority Date/Time Associated Diagnosis Comments EKG 12 LEAD Routine 06/07/2023 11:12 AM GARDEN CONSULTANT Aortic valve stenosis, etiology of cardiac valve disease unspecified TYPE & SCREEN Routine 06/07/2023 11:08 AM GARDEN CONSULTANT Aortic valve stenosis, etiology of cardiac valve disease unspecified Pre-op testing ALBUMIN Routine 06/07/2023 11:08 AM GARDEN CONSULTANT Aortic valve stenosis, etiology of cardiac valve disease unspecified Pre-op testing BASIC METABOLIC PANEL Routine 06/07/2023 11:08 AM GARDEN CONSULTANT Aortic valve stenosis, etiology of cardiac valve disease unspecified Pre-op testing CBC W PLT NO DIFF Routine 06/07/2023 11: 08 AM GARDEN CONSULTANT Aortic valve stenosis, etiology of cardiac valve disease unspecified Pre-op testing CTA CHEST ABD PELVIS TAVR - DUAL READ ANDREW 05/24/2023 3:01 PM GARDEN CONSULTANT Aortic stenosis, severe CREATININE,ISTAT Routine 05/24/2023 2:41 PM GARDEN CONSULTANT Aortic stenosis, severe HEMATOCRIT Routine 05/24/2023 2:37 PM GARDEN CONSULTANT Aortic stenosis, severe Pre-procedure lab exam ECHO TTE COMPLETE WO CONTRAST Routine 05/16/2023 11:40 AM GARDEN CONSULTANT Systolic murmur Aortic valve stenosis, etiology of cardiac valve disease unspecified XR DXA BONE DENSITY 2 SITES AXIAL Routine 05/16/2023 11:04 AM GARDEN CONSULTANT Osteopenia, unspecified location VITAMIN D 25 (DEFICIENCY) Routine 04/06/2023 10:41 AM GARDEN CONSULTANT Vitamin D deficiency LIPID PANEL W REFLEX MEASURED LDL Routine 04/06/2023 10:41 AM GARDEN CONSULTANT Pure hypercholesterolemia COMP METABOLIC PANEL Routine 04/06/2023 10:41 AM GARDEN CONSULTANT Primary cancer of left breast (HC) CBC W PLT NO DIFF Add On 04/06/2023 9:1 3 AM GARDEN CONSULTANT Primary cancer of left breast (HC) HEMOGLOBIN A1C Routine 04/06/2023 9:13 AM GARDEN CONSULTANT Type 2 diabetes mellitus without complication, without long-term current use of insulin (HC) from Last 3 Months Results * TYPE & SCREEN (06/07/2023 11:08 AM GARDEN CONSULTANT) Pathologist [facility] [place] ABORH O Rh Positive 06/07/2023 12:28 PM GARDEN CONSULTANT [facility] ANTIBODY SCREEN Negative Negative 06/07/2023 12:28 PM GARDEN CONSULTANT [facility] BLOOD BANK SPECIMEN EXPIRATION DATE/TIME 06/10/23 23:59 06/07/2023 12:28 PM GARDEN CONSULTANT [facility] BLOOD BANK Blood BLOOD SPECIMEN / Unknown Venipuncture / Unknown 06/07/2023 11:08 AM GARDEN CONSULTANT 06/07/2023 11:15 AM GARDEN CONSULTANT Davin Steven MD BLOOD BANK [facility]-CENTRAL LAB BLOOD BANK [address] [place] [address], [place] [phone] * CBC W PLT NO DIFF (06/07/2023 11:08 AM GARDEN CONSULTANT) Only the most recent of2 resultswithin the time period is included. WHITE BLOOD COUNT 8.0 4.5 - 11.0 thou/cu mm 06/07/2023 11:47 AM [facility] RED BLOOD COUNT 4.60 4.00 - 5.20 mil/cu mm 06/07/2023 11:47 AM [facility] HEMOGLOBIN 13.7 12.0 - 16.0 g/dL 06/07/2023 11:47 AM [facility] HEMATOCRIT 41.3 33.0 - 51.0 % 06/07/2023 11:47 AM [facility] MCV 90 80 - 100 fL 06/07/2023 11:47 AM [facility] MCH 29.8 26.0 - 34.0 pg 06/07/2023 11:47 AM [facility] MCHC 33.2 32.0 - 36.0 g/dL 06/07/2023 11:47 AM [facility] RDW 14.0 11.5 - 15.5 % 06/07/2023 11:47 AM [facility] PLATELET COUNT 278 140 - 440 thou/cu mm 06/07/2023 11:47 AM [facility] MPV 9.5 6.5 - 11.0 fL 06/07/2023 11:47 AM [facility] NRBC 0.0 % 06/07/2023 11:47 AM [facility] ABS NRBC 0.0 thou /cu mm 06/07/2023 11:47 AM [facility] Blood BLOOD SPECIMEN / Unknown Venipuncture / Unknown 06/07/2023 11:08 AM [facility] 06/07/2023 11:15 AM [facility] Davin Steven MD HEMATOLOGY [facility] [address] [place] [address], * (ABNORMAL) ALBUMIN (06/07/2023 11:08 AM GARDEN CONSULTANT) ALBUMIN 3.3(L) 4.0 - 4.9 g/dL 06/07/2023 11:48 AM [facility] Blood BLOOD SPECIMEN / Unknown Venipuncture / Unknown 06/07/2023 11:08 AM GARDEN CONSULTANT 06/07/2023 11:15 AM [facility] Davin Steven MD CHEMISTRY [facility] [address] [place] [address], * (ABNORMAL) BASIC METABOLIC PANEL (06/07/2023 11:08 AM [facility]) SODIUM 130(L) 136 - 145 mmol/L 06/07/2023 11:48 AM [facility] POTASSIUM 4.5 3.5 - 5.1 mmol/L 06/07/2023 11:48 AM [facility] CHLORIDE 97(L) 98 - 107 mmol/L 06/07/2023 11:48 AM [facility] CO2,TOTAL 24 22 - 29 mmol/L 06/07/2023 11:48 AM [facility] ANION GAP 9 5 - 18 06/07/2023 11:48 AM [facility] GLUCOSE 224(H) 70 - 99 mg/dL 06/07/2023 11:48 AM [facility] CALCIUM 8.9 8.8 - 10.2 mg/dL 06/07/2023 11:48 AM [facility] BUN 15 8 - 23 mg/dL 06/07/2023 11:48 AM [facility] CREATININE 0.68 0.50 - 0.90 mg/dL 06/07/2023 11:48 AM [facility] BUN/CREAT RATIO 22(H) 10 - 20 11:48 AM [facility] eGFR 85(L) >90 mL/min/1.7 3m2 06/07/2023 11:48 AM [facility] Comment:As of 2021, eG FR is calculated by the CKD-EPI creatinine equation without race adjustment. ??eGFR can be influenced by muscle mass, exercise, and diet. ??The reported eGFR is an estimation only and is only applicable if the renal function is stable. Blood BLOOD SPECIMEN / Unknown Venipuncture / Unknown 06/07/2023 11:08 AM GARDEN CONSULTANT 06/07/2023 11:15 AM GARDEN CONSULTANT Davin Steven MD CHEMISTRY [facility] [address] [place] [address], * CTA CHEST ABD PELVIS TAVR - DUAL READ (05/24/2023 3:01 PM GARDEN CONSULTANT) Anatomical Region Laterality Modality CHEST, Abdomen, Pelvis Computed Tomography Impressions 05/25/2023 4:02 PM GARDEN CONSULTANT 1. No acute nonvascular findings in the [...] PM (Electronic Signature) Narrative 05/25/2023 4:02 PM GARDEN CONSULTANT Images from the original result were not [...] deployment projection (balloon expandable device): EVANS 3??, MANAGER SERVICING 2?? Optimal deployment projections (self expandable device): EVANS 21??, CAU 20?? Left ventricle / aortic ??angle: 55?? Access: Other findings: Coronary arteries: ??Dominance: Right coronary artery ??Left main Patent ??Left anterior descending artery Patent ??Left circumflex artery Patent ??Right coronary artery Patent Left atrium: Reduced distal appendage contrast opacification Left ventricle septal ECV: 35% Pericardium: Normal without effusion. Thoracic aorta: Left-sided arch. [id number] atheromatous disease in the arch and descending [...] PATIENT: Results are automatically released to your [facility] ([employer] account once available, in compliance with federal regulations. ?? This means that you may see your results before your provider has had a chance to review them. ??Please allow 2-3 business days for your provider to comment on the results. Robert Farley MD [facility] 05/25/2023 For Patients: As a result of [...] conjunction with the services provided by the [facility] ([facility]). CLINICAL HISTORY: ?? Aortic stenosis. Cardiac over-read. [...] CT * (ABNORMAL) CREATININE,ISTAT (05/24/2023 2:41 PM GARDEN CONSULTANT) CREATININE, POCT 0.60 0.57 - 1.11 mg/dL 05/24/2023 2:43 PM GARDEN CONSULTANT [facility] Comment:Caution: Patients ta keith Hydroxyurea have falsely increased iStat Creatinine results. Verify creatinine results ordering a Creatinine (65703.2) eGFR 88(L) >90 mL/min/1.7 3m2 05/24/2023 2:43 PM GARDEN CONSULTANT [facility] Comment:As of 2021, eG FR is calculated by the CKD-EPI creatinine equation without race adjustment. eGFR can be influenced by muscle mass, exercise, and diet. The reported eGFR is an estimation only and is only applicable if the renal function is stable. Blood BLOOD SPECIMEN / Unknown 05/24/2023 2:41 PM GARDEN CONSULTANT 05/24/2023 2:43 PM GARDEN CONSULTANT Davin Steven MD CHEMISTRY [facility] [address] [place] [address], * HEMATOCRIT (05/24/2023 2:37 PM GARDEN CONSULTANT) HEMATOCRIT 44.2 33.0 - 51.0 % 05/24/2023 2:42 PM GARDEN CONSULTANT [facility] Blood BLOOD SPECIMEN / Unknown IV Start / Unknown 05/24/2023 2:37 PM GARDEN CONSULTANT 05/24/2023 2:37 PM GARDEN CONSULTANT Davin Steven MD HEMATOLOGY [facility] [address] [place] [address], [place] * ECHO TTE COMPLETE WO CONTRAST (05/16/2023 11:40 AM GARDEN CONSULTANT) AORTIC VALVE MEAN PG 48 mmHg EJECTION FRACTION 69 % PEAK TR VELOCITY 2.6 m/s LVEDD 3.7 cm Anatomical Region Laterality Modality Ultrasound 05/16/2023 11:0 9 AM GARDEN CONSULTANT Narrative 05/16/2023 2:34 PM GARDEN CONSULTANT ECHOCARDIOGRAM ONDINA VARMA ? Accession#: ?? [id number] : ?1940 82 years Study Date: ?? 05/16/2023 11:09:56 AM Gender: F ?BP: ? 124/80 mmHg Height: 155.00 cm ?BSA: ?1.80 m? ? ? Weight: 81.00 kg ? Tech: ? MJW ? Referring MD: CARLITA GAGE Site: ? [facility] [place] Location: Mobile-OP Patient Location: Outpatient. Procedure: [...] . This study was interpreted by an [facility] accredited facility. ??Final ?? Procedure Note Roger Mack MD - 05/16/2023 ECHOCARDIOGRAM ONDINA VARMA : 1940 82 years Study Date: 05/16/2023 11:09:56 AM Gender: F BP: 124/80 mmHg Height: 155.00 cm BSA: 1.80 m? ? ? Weight: 81.00 kg Tech: SHARMIN Referring MD: CARLITA GAGE Site: [facility] [place] Location: Mobile-OP Patient Location: Outpatient. Procedure: [...] . This study was interpreted by an [facility] accredited facility. Final Carlita Gage MD ECHO ORD * (ABNORMAL) XR DXA BONE DENSITY 2 SITES AXIAL (05/16/2023 11:04 AM GARDEN CONSULTANT) Anatomical Region Laterality Modality Spine, HIPS, HIPL, HIPR Other Impressions 05/16/2023 4:51 PM GARDEN CONSULTANT Osteopenia. RECOMMENDATIONS: The National Osteoporosis Foundation recommends [...] to assess therapeutic efficacy. Beth Rivera PA-C [facility] 05/16/2023 Narrative 05/16/2023 4:51 PM GARDEN CONSULTANT For Patients: Results are automatically released to your [facility] ([employer]) account once available, in compliance with federal regulations. This means that you may see your results before your provider has had a chance to review them. Please allow 2-3 business days for your provider to comment on the results. XR DXA Bone Mineral Density (BMD) EXAM LOCATION: [address] [address] PATIENT NAME: Ondina Varma DATE OF : [...] two scanners are made by the same principal web developer. PROCEDURE: Dual-energy x-ray absorptiometry performed with routine [...] W REFLEX MEASURED LDL (04/06/2023 10:41 AM [facility]) [facility] CHOLESTEROL,TOTAL 152 100 - 199 mg/dL 04/06/2023 11:18 AM [facility] Comment: Cholesterol, Total Reference Ranges Desirable <200 mg/dL Borderline 200-239 mg/dL High >=240 mg/dL TRIGLYCERIDES 86 <150 mg/dL 04/06/2023 11:18 AM [facility] HDL CHOLESTEROL 70 >40 mg/dL 11:18 AM [facility] NON-HDL CHOLESTEROL 82 <145 mg/dl 04/06/2023 11:18 AM [facility] CHOL/HDL RATIO 2.17 <4.50 04/06/2023 11:18 AM [facility] LDL CHOLESTEROL 65 <=130 mg/dL 04/06/2023 11:18 AM [facility] VLDL CHOLESTEROL 17 <=30 mg/dL 04/06/2023 11:18 AM [facility] PROVIDER ORDERED STATUS RANDOM 04/06/2023 11:18 AM [facility] Blood BLOOD SPECIMEN / Unknown Venipuncture / Unknown 04/06/2023 10:41 AM GARDEN CONSULTANT 04/06/2023 10:43 AM GARDEN CONSULTANT Carlita Gage MD CHEMISTRY Performing Organization Address City/[facility]/ZIP Co de Phone Number [facility] [address] [place] [address] * VITAMIN D 25 (DEFICIENCY) (04/06/2023 10:41 AM [facility]) Pathologist [facility] [place] VITAMIN D TOTAL 37.6 20.0 - 80.0 ng/mL 04/06/2023 10:17 PM GARDEN CONSULTANT [facility] Blood BLOOD SPECIMEN / Unknown Venipuncture / Unknown 04/06/2023 10:41 AM GARDEN CONSULTANT 04/06/2023 10:43 AM GARDEN CONSULTANT Narrative [facility] - 04/06/2023 10:17 PM GARDEN CONSULTANT ? Vitamin D Status Deficiency: ? <20 ng/mL Insufficiency: ?20-29 ng/mL Sufficiency: ?30-80 ng/mL Possible Toxicity: ??>80 ng/mL Based on [place] of Medicine recommendations Biotin supplements may cause clinically significant interference for this test assay. ??If interference is suspected, it is strongly recommended that biotin is discontinued for at least one week prior to retesting. Carlita Gage MD SEND OUTS Performing Organization Address [place]/[facility]/ZIP Co de Phone Number [facility] [address] [place] [address], * (ABNORMAL) COMP METABOLIC PANEL (04/06/2023 10:41 AM [facility]) SODIUM 137 136 - 145 mmol/L 04/06/2023 11:18 AM [facility] POTASSIUM 4.2 3.5 - 5.1 mmol/L 04/06/2023 11:18 AM [facility] CHLORIDE 98 98 - 107 mmol/L 04/06/2023 11:18 AM [facility] CO2,TOTAL 29 22 - 29 mmol/L 04/06/2023 11:18 AM [facility] ANION GAP 10 5 - 18 04/06/2023 11:18 AM [facility] GLUCOSE 115(H) 70 - 99 mg/dL 04/06/2023 11:18 AM [facility] CALCIUM 9.7 8.8 - 10.2 mg/dL 04/06/2023 11:18 AM [facility] BUN 12 8 - 23 mg/dL 04/06/2023 11:18 AM [facility] CREATININE 0.57 0.50 - 0.90 mg/dL 04/06/2023 11:18 AM [facility] BUN/CREAT RATIO 21(H) 10 - 20 11:18 AM [facility] eGFR 90(L) >90 mL/min/1.7 3m2 04/06/2023 11:18 AM [facility] Comment:As of 2021, eG FR is calculated by the CKD-EPI creatinine equation without race adjustment. ??eGFR can be influenced by muscle mass, exercise, and diet. ??The reported eGFR is an estimation only and is only applicable if the renal function is stable. ALBUMIN 4.0 4.0 - 4.9 g/dL 04/06/2023 11:18 AM [facility] PROTEIN,TOTAL 7.0 6.0 - 8.0 g/dL 04/06/2023 11:18 AM [facility] BILIRUBIN,TOTAL 0.4 0.0 - 1.2 mg/dL 04/06/2023 11:18 AM [facility] ALK PHOSPHATASE 59 35 - 104 IU/L 04/06/2023 11:18 AM [facility] ALT (SGPT) 16 10 - 35 IU/L 04/06/2023 11:18 AM [facility] AST (SGOT) 23 10 - 35 IU/L 04/06/2023 11:18 AM GARDEN CONSULTANT [facility] Blood BLOOD SPECIMEN / Unknown Venipuncture / Unknown 04/06/2023 10:41 AM GARDEN CONSULTANT 04/06/2023 10:43 AM GARDEN CONSULTANT Carlita Gage MD CHEMISTRY Performing Organization Address [place]/[facility] Co de Phone Number [facility] [address] [place] [address] * (ABNORMAL) HEMOGLOBIN A1C MONITORING (POCT) (04/06/2023 9:13 AM GARDEN CONSULTANT) HEMOGLOBIN A1C MONITORING (POCT) 6.5(H) <=6.4 % 04/06/2023 9:23 AM GARDEN CONSULTANT [facility] Blood BLOOD SPECIMEN / Unknown Venipuncture / Unknown 04/06/2023 9:13 AM GARDEN CONSULTANT 04/06/2023 9:15 AM GARDEN CONSULTANT Narrative [facility] - 04/06/2023 9:23 AM GARDEN CONSULTANT ? (<=6.9%) ? Indicates good control ? (7.0% to 7.9%) ? Indicates fair control ? (>=8.0%) ? Indicates poor control ?? NOTE: ??These thresholds are guidelines and ?individual targets may vary. Falsely low levels may be seen with: Recent Transfusion, Recent Significant Blood Loss, Hemolytic Diseases, or Falsely elevated levels may be seen with: Untreated Anemias, Splenectomy ? Carlita Gage MD CHEMISTRY Performing Organization Address [place]/[facility] Co de Phone Number [facility] [address] [place] [address] from Last 3 Months Advance Directives Documents on File Type Date Recorded Patient Staffing Recruiter Expl anation POLST 06/30/2019 12:00 AM 06/30/2019 [...] 10:39 PM 01/16/2019 10:39 PM Care Teams Health Information Managers Relationship Specialty Start Date End Date Carlita Gage MD [address] [place] [address] PCP - General 06/01/15 Russ, David Guerrero [address] [place] [address] Audiology 05/29/16 Tere Hill, TRISH [address] [place], [place] [id number] Spinal Cord Injury Rehab Care Coordination - [facility] Registered Nurse 07/18/19 Holly Johnson DO [address] [place] [address] Physical Medicince Rehab Physical Medicine and Rehabilitation 12/04/19 [facility] [address] [place] [address] 08/18/22
== END 2023-06-06 14:58 | disposition home or self-care (01) ==
LOC: AMB 06-08 17:06
PROVIDERS: PCP Internal Medicine; Visit Provider Family Medicine
DX: S82.891S Other fracture of right lower leg, sequela (principal)
CPT/HCPCS: A0425; A0428

== ENCOUNTER 2023-08-09 07:16 | Outpatient (CLI) | payer OTHER, SELFPAY ==
--- OUTSIDE RECORDS SUMMARY | 2023-08-13 14:41 | XMS_ITS | Clinical Summary ---
Author Name Unknown Organization [email or web address] Formerly [facility] Address [place], [place] [address] Care Team Providers Care Water Sander Name Role Phone Carlita Gage MD Primary Care Provider Russ Pebbles Fernando David Unavailable [phone] IsaacHolly stafford DO Unavailable [phone] [facility], [place] Unavailable Allergies Active Allergy Reactions Criticality Noted [...] 23 Active baclofen (LIORESAL) 5 mg tab tabletIndications:[facility] Take 1-2 Tablets (5-10 mg) by mouth 2 times daily if needed (spasms). 180 Tablet 4 03/12/20 23 Active calcium carbonate-vitamin D3, 600 mg-400 unit, 600 mg-10 mcg (400 unit) tablet Take 1 Tablet by mouth once daily with a meal. 04/07/20 23 Active baclofen (LIORESAL) 20 mg tabletIndications:Syrinx of [...] hr. 12 Tablet 3 05/22/19 24 Active amoxicillin (AMOXIL) 500 mg tabletIndications:S/P TAVR (transcatheter aortic valve replacement) Take 4 tabs (2000 mg) one hour prior to dental procedure 4 Tablet 07/11/19 24 Active furosemide (LASIX) 40 mg tabletIndications:edema Take 40 mg by mouth once daily. take one tablet (40 mg) by mouth daily in am Indications: visible water retention Active multivitamin (MVI) tabletIndications:vitami n deficiency prevention Take 1 Tablet by mouth once daily. take one tablet daily for supplement Indications: treatment to prevent vitamin deficiency Active Vilmogjzerb-Irflgxmwh-Uu t C-Mn 681-394-53-5 mg tablet Take 2 Tablets by mouth once daily. take 2 tablets by mouth daily Active docosahexaenoic acid/epa (FISH OIL ORAL)Indications:supplem ent Take 1,000 mg by mouth once daily. Take 1 capsule (1,000 mg) by mouth daily Indications: supplement Active medication order composerIndications:Syri nx of spinal cord (HC),Primary osteoarthritis of right knee Dispense one lift chair. For home use. 1 Each 08/10/19 Active medication order composerIndications:Syri nx of spinal cord (HC),Primary osteoarthritis of right knee Dispense one lift chair. For home use. 1 Each 08/10/19 024 Discontin ued(Reord er (E-cancel not sent)) [...] Encounters Date Type Department Care Team Description 08/13/2023 11:30 AM CDT Home Care Visit Counts Include [address] [facility] [address] [place] [address] Abiodun Pina RN SN - HOME VISIT 08/13/[address] [address] Samia Garcia PA 08/13/2023 Home Care Visit Counts Include [address] [facility] [address] [place] [address] Laura Woods LISW SOFTWARE PROJECT LEAD - CASE COMMUNICATION 08/10/2023 2:20 PM CDT Telemedicine [address] [address] Samia Garcia PA Telehealth (Follow up TCU, needs order for lift chair) 08/10/2023 Home Care Visit Counts Include [address] [facility] [facility] [address] [place] [address] Leonor Arriola BACON SKIN LIFTER - LONG VISIT 08/10/[address] [address] Samia Garcia PA needs Rx for lift chair 08/10/2023 Telephone [facility] [address] [address] Santhosh Brewer MD neurology referral 08/10/2023 Travel 08/09/2023 3:00 PM CDT Home Care Visit Counts Include [address] [address] [place] [address] Janneth Gifford, OT OT - INITIAL ASSESSMENT 08/09/2023 1:00 PM CDT Home Care Visit Counts Include [address] [address] [place] [phone] Betty Kothari, PT PT - INITIAL ASSESSMENT 08/09/2023 Nurse Triage [facility] [address] [facility] [address] [place] [address] Bo Styles, SONIA Questions 08/09/2023 Travel 08/08/2023 1:00 PM CDT Home Care Visit Counts Include [address] [address] [place] [phone] Abiodun Pina, RN SN - HOME VISIT 08/08/2023 Telephone [facility] [address] [place] [address] Carlita aGge MD Medication Management (lift chair ) 08/06/2023 Nurse Triage Counts Include [address] [facility] [address] [place] [address] Carlita Gage MD Appointment Request 08/06/2023 Telephone Counts Include [address] [facility] [address] [place] [address] Ruthie Lozano, sociology faculty member 08/06/2023 Plan of Care Documentation Counts Include [address] [facility] [address] [place] [phone] 08/05/2023 9:00 AM CDT Home Care Visit Counts Include [address] [facility] [address] [place] [phone] Ruthie Lozano, RN SN - OASIS START OF CARE 08/01/2023 Transcribe Orders [place] [id number] [address] [place] [phone] Gladis Godoy MD 07/20/2023 3:00 PM CDT Office Visit [facility] [address] [facility] [address] [place] [phone] Bo Styles MBBS CV Valve Est (VALVE EST: 30DAY S/P TAVR, LABS ECHO CT MORPH PRIOR, NEEDS EKG, [facility], 5MWALK, LETTER GIVEN, HJK//PCP: Carlita Gage MD/) 07/20/2023 1:20 PM CDT Orders Only [facility] [address] [phone] Lab 07/20/2023 1:16 PM CDT - 07/20/2023 11:59 PM CDT Hospital Encounter [facility] [address] [place] [address] Aneudy Ojeda NP Severe aortic stenosis 07/20/2023 Travel 07/13/2023 Nurse Triage [address] [address] Carlita Gage MD Home Care (Extension of current care at [facility]. ) 07/13/[address] [phone] Carlita Gage MD Injury (Update on right ankle ) 07/09/2023 11:00 AM CDT Ancillary Procedure [facility] [address] [place] [address] 07/09/2023 Orders Only [facility] [address] [place] [address] Archana Perdomo 1 scan: (1-Ord) Final 07/09/2023 Travel 07/03/2023 Orders Only [facility] [address] [place] [address] Destinee Shaffer PA <No scans attached> 06/22/2023 Telephone [facility] [address] [phone] Davin Samson MD post TAVR SX 06/18/2023 Telephone [facility] [address] [place] [address] Davin Samson MD Concerns 06/13/2023 9:42 AM BACK DIGGER OPERATOR - 06/14/2023 1:55 PM BACK DIGGER OPERATOR Hospital Encounter [facility] [address] [place] [address] Davin Samson MD Aortic stenosis, severe (Primary Dx) Discharge Disposition: [facility] Facility 06/13/2023 Travel 06/08/2023 Orders Only [facility] [address], [place] [address] Aneudy Ojeda NP <No scans attached> 06/07/2023 11:30 AM BACK DIGGER OPERATOR Office Visit [facility] [address] [phone] Aneudy Ojeda NP CV Valve Est (VALVE EST:PRE-OP TAVR, LABS PRIOR,NEEDS EKG,KCCQ12, 5M WALK,LETTER SENT, HJK//PCP: Carlita Gage MD/) 06/07/2023 11:00 AM BACK DIGGER OPERATOR Orders Only [facility] [address] [phone] Lab (/) 06/07/2023 Travel 06/06/2023 Telephone [facility] [address], [place] [address] Davin Samson MD Health Maintenance Update (Recent leg fracture) 06/04/2023 Telephone [facility] [address] [address] Davin Samson MD Health Maintenance Update (Post valve conference discussion /) 06/01/2023 11:00 AM BACK DIGGER OPERATOR Telemedicine [facility] [address] [phone] Bruce Guadalupe MD Fatigue 06/01/2023 Telephone [facility] [address] [facility] [address] [place] [address] Davin Samson MD Questions 05/31/2023 Telephone [facility] [address] [facility] [address] [place] [address] Davin Samson MD Questions 05/31/2023 Travel 05/24/2023 2:30 PM BACK DIGGER OPERATOR Ancillary Procedure [address] [facility] [address] 05/24/2023 1:30 PM BACK DIGGER OPERATOR Office Visit [address] [facility] [place] [address] Davin Samson MD CV General Cardiology New (Initial visit, ref by Too for severe . ) 05/24/2023 Travel 05/22/2023 Travel 05/22/[address] [address] Carlita Gage MD Refill Request (baclofen (LIORESAL) 20 mg tablet ) 05/22/[address] [address] Carlita Gage MD Refill Request (Eliquis) 2023 Telephone [facility] [address] [place] [address] [place] [address] Cardiology, Anw Appointment (ANY CARD) 05/16/2023 11:00 AM BACK DIGGER OPERATOR Ancillary Procedure [facility] [address] [place] [address] 05/16/2023 10:30 AM BACK DIGGER OPERATOR Ancillary Procedure [facility] [address] [place] [address] 05/15/2023 Travel from Last 3 Months Immunizations Name Administration Dates Next Due COVID-19 Vaccine Spikevax (Merna sanchez 50mcg/0.5mL) 12YO+ [id number] Formula PF 04/06/2023 COVID-19 vaccine (Moderna 100mcg/0.5mL) [...] of emphyse ma Heart Disease Mother of CA Stroke Sister 3 Good Health Son Relation [...] Sign Reading Time Taken Comments Blood Pressure 130/70 08/13/2023 11:52 AM CDT Pulse 68 08/13/2023 11:52 AM CDT Temperature 36.2 ??C (97.2 ??F) 08/13/2023 11:52 AM C DT Respiratory Rate 18 08/13/2023 11:52 AM CDT Oxygen Saturation 94% 08/13/2023 11:52 AM CDT Inhaled Oxygen Concentration - - Weight 86.2 kg (190 lb) 08/05/2023 10:00 AM CDT Height 157.5 cm (5' 2) 08/05/2023 10:00 AM CDT Body Mass Index 34.75 08/05/2023 10:00 AM CDT Plan of Treatment Upcoming Encounters Date Type Department Care Team (Late st Contact Info) Description 08/15/2023 7:30 AM CDT Home Care Visit [facility] [address] [place] [address] Janneth Gifford, OT [address] [place] [phone] 08/15/2023 10:30 AM CDT Home Care Visit [facility] [address] [place] [phone] Betty Kothari, PT [address] [place] [address] 08/16/2023 10:30 AM CDT Home Care Visit [facility] [address] [place] [phone] Betty Kothari, PT [address] [place] [address] 08/17/2023 4:00 AM CDT Home Care Visit [facility] [address] [place] [phone] Sabrina Ayon, JUDSON [address] [place] [address] 08/17/2023 10:00 AM CDT Home Care Visit [address] [phone] Leonor Arriola 08/20/2023 3:00 AM CDT Home Care Visit [address] [phone] Betty Kothari, PT [address] [place] [address] 08/21/2023 3:00 AM CDT Home Care Visit [facility] [address] [place] [phone] Betty Kothari, PT [address] [place] [address] 08/22/2023 4:00 AM CDT Home Care Visit [facility] [address] [place] [phone] Sabrina Ayon ROPER [address] [place] [address] 08/23/2023 3:00 AM CDT Home Care Visit [facility] [address] [place] [address] Betty Kothari, PT [address] [place] [address] 08/24/2023 4:00 AM CDT Home Care Visit [facility] [address] [place] [phone] Leonor Arriola 08/24/2023 5:00 AM CDT Home Care Visit [facility] [address] [place] [phone] Sabrina Ayon, ROPER [address] [place] [address] 08/28/2023 3:00 AM CDT Home Care Visit [facility] [address] [place] [phone] Betty Kothari, PT [address] [place] [address] 08/28/2023 10:30 AM CDT Home Care Visit [facility] [address] [place] [phone] Janneth Gifford, OT [address] [place] [address] 08/30/2023 3:00 AM CDT Home Care Visit [facility] [address] [place] [phone] Betty Kothari, PT [address] [place] [address] 08/31/2023 4:00 AM CDT Home Care Visit [facility] [address] [place] [phone] Leonor Arriola 09/04/2023 3:00 AM CDT Home Care Visit [facility] [address] [place] [phone] Betty Kothari, PT [address] [place] [address] 09/06/2023 3:00 AM CDT Home Care Visit [facility] [address] [place] [phone] Betty Kothari, PT [address] [place] [address] 09/11/2023 3:00 AM CDT Home Care Visit [facility] [address] [place] [phone] Betty Kothari, PT [address] [place] [address] 09/13/2023 3:00 AM CDT Home Care Visit [facility] [address] [place] [phone] Betty Kothari, PT [address] [place] [address] 09/18/2023 3:00 AM CDT Home Care Visit [facility] [address] [place] [phone] Betty Kothari, PT [address] [place] [address] 09/25/2023 3:00 AM CDT Home Care Visit [facility] [address] [place] [phone] Betty Kothari, PT [address] [place] [address] 09/28/2023 11:00 AM CDT Office Visit [facility] [address] [place] [address] Carlita Gage MD [address] [place] [address] 10/02/2023 3:00 AM CDT Home Care Visit Counts Include [address] [facility] [address] [place] [phone] Betty Kothari, PT [address] [place] [address] Health Maintenance Due Date Last Done Comments [...] history exists Medical Devices Implanted Type Area Guest Service Supervisor Device Identifier Shelf Expiration Date Model / Serial / Lot Screw Neuro 4mm Matrixneuro Slf Drill Titnm - [id number] Implanted:Qty: 9 on 06/05/2019 by Clement Khan MBChB at [facility] [employer] CMF 04.503. [id number] .[id number]# / / Plate Facial 7hole Synthes Adaption - [id number] Implanted:Qty: 2 on 06/05/2019 by Clement Khan MBChB at [facility] [employer] CMF 421.519 [...] LOWER EXTREMITY LEFT ANDREW 06/14/2023 12:57 PM BACK DIGGER OPERATOR MAGNESIUM Early AM 06/14/2023 8:34 AM BACK DIGGER OPERATOR BASIC METABOLIC PANEL Early AM 06/14/2023 8:34 AM BACK DIGGER OPERATOR CBC W PLT NO DIFF Early AM 06/14/2023 8:3 4 AM BACK DIGGER OPERATOR EKG 12 LEAD Early AM 06/14/2023 6:14 AM BACK DIGGER OPERATOR SCAN-CARDIAC STRIP 06/14/2023 5: 20 AM BACK DIGGER OPERATOR ECHO TTE LIMITED WO CONTRAST W COLOR W LTD DOPPLER Routine 06/13/2023 5:54 PM BACK DIGGER OPERATOR EKG 12 LEAD ANDREW 06/13/2023 4:50 PM BACK DIGGER OPERATOR HCHG ACTIVATED CLOTTING TM CV Timed 06/13/2023 3:54 PM BACK DIGGER OPERATOR CVL TAVR Routine 06/13/2023 3:39 PM BACK DIGGER OPERATOR RBC W/O TYPE & SCREEN STAT 06/13/2023 3:05 PM BACK DIGGER OPERATOR RED BLOOD CELLS EA UNIT STAT 06/13/19 24 3:00 PM BACK DIGGER OPERATOR RED BLOOD CELLS EA UNIT STAT 06/13/19 24 3:00 PM BACK DIGGER OPERATOR TYPE & SCREEN Preop 06/13/2023 11:52 AM BACK DIGGER OPERATOR GLUCOSE, FASTING Preop 06/13/2023 11:5 2 AM BACK DIGGER OPERATOR EKG 12 LEAD Routine 06/07/2023 11:12 AM BACK DIGGER OPERATOR Aortic valve stenosis, etiology of cardiac valve disease unspecified TYPE & SCREEN Routine 06/07/2023 11:08 AM BACK DIGGER OPERATOR Aortic valve stenosis, etiology of cardiac valve disease unspecified Pre-op testing ALBUMIN Routine 06/07/2023 11:08 AM BACK DIGGER OPERATOR Aortic valve stenosis, etiology of cardiac valve disease unspecified Pre-op testing BASIC METABOLIC PANEL Routine 06/07/2023 11:08 AM BACK DIGGER OPERATOR Aortic valve stenosis, etiology of cardiac valve disease unspecified Pre-op testing CBC W PLT NO DIFF Routine 06/07/2023 11: 08 AM BACK DIGGER OPERATOR Aortic valve stenosis, etiology of cardiac valve disease unspecified Pre-op testing CTA CHEST ABD PELVIS TAVR - DUAL READ ANDREW 05/24/2023 3:01 PM BACK DIGGER OPERATOR Aortic stenosis, severe CREATININE,ISTAT Routine 05/24/2023 2:41 PM BACK DIGGER OPERATOR Aortic stenosis, severe HEMATOCRIT Routine 05/24/2023 2:37 PM BACK DIGGER OPERATOR Aortic stenosis, severe Pre-procedure lab exam ECHO TTE COMPLETE WO CONTRAST Routine 05/16/2023 11:40 AM BACK DIGGER OPERATOR Systolic murmur Aortic valve stenosis, etiology of cardiac valve disease unspecified XR DXA BONE DENSITY 2 SITES AXIAL Routine 05/16/2023 11:04 AM BACK DIGGER OPERATOR Osteopenia, unspecified location from Last 3 Months Results * IMMUNOFIXATION ELP, URINE (07/20/2023 4:04 PM CDT) IFIX INTERP,URINE Immunofixation on urine shows no monoclonal protein detected and no free light chains detected. Interpreted and electronically signed by: Cynthia Ramirez MD 07/24/2023 3:49 PM CDT [facility] PROTEIN QUANT,RAND URINE <6 1 - 14 mg/dL 07/24/2023 3:49 PM CDT [facility]- [facility] Urine URINE SPECIMEN / Unknown Non-Blood / Unknown 07/20/2023 4:04 PM CDT 07/20/2023 4:14 PM CDT Destinee ELLIOTT URINE [facility] [address] [place] [address], [place] * PROTEIN ELP,URINE RANDOM (07/20/2023 4:04 PM CDT) ELP INTERP, URINE Essentially no proteinuria. No monoclonal protein detected. Interpreted and electronically signed by: Cynthia Ramirez MD 07/24/2023 4:41 PM CDT [facility] PROTEIN QUANT,RAND URINE <6 1 - 14 mg/dL 07/24/2023 4:41 PM CDT [facility] Urine URINE SPECIMEN / Unknown Non-Blood / Unknown 07/20/2023 4:04 PM CDT 07/20/2023 4:14 PM CDT Destinee ELLIOTT URINE [facility] [address] [place] [address], [place] * EKG 12 LEAD (07/20/2023 2:55 PM CDT) Only the most recent of3 resultswithin the time period is included. Pathologist [facility] Interpretation Normal sinus rhythm Left axis deviation Right bundle branch block Abnormal ECG Ventricular Rate 66 BPM Atrial Rate 66 BPM P-R Interval 206 ms QRS Duration 128 ms QT 432 ms QTc 452 ms P Claremont 33 degrees R Clare[place] -34 degrees T [place] 28 degrees 07/20/2023 2:55 PM CDT 07/20/2023 9:15 PM CDT Aneudy Ojeda ROUTER SETTER EKG ORD * CT CARDIAC MORPHOLOGY W [...] leaflet function and morphology. STUDY PARAMETERS: Scanner: [email or web address] CT Contrast: 70 ml of Omnipaque 350 [...] PATIENT: Results are automatically released to your [email or web address] ([employer]) account once available, in compliance with federal regulations. ?? This means that you may see your results before your provider has had a chance to review them. ??Please allow 2-3 business days for your provider to comment on the results. López Hanson MD, [facility], [facility] For Patients: As a result of the [...] conjunction with the services provided by the [facility] ([facility]). CLINICAL HISTORY: ??Cardiac CT over-read. ? FINDINGS: Lungs: Bronchiectasis and scarring in the lower lobes. ??No change from a prior recent CT scan of the chest 05/24/2023. ?? Pleural Spaces: No pleural effusions. Pulmonary Arteries: No filling defects. Aorta: No signs for dissection. Mediastinum: No adenopathy. Miscellaneous: TAVR placement in the aorta. ??See dedicated cardiac imaging report. ?? Aneudy Ojeda ROUTER SETTER CT * (ABNORMAL) CREATININE,ISTAT (07/20/2023 2:15 PM CDT) Only the most recent of2 resultswithin the time period is included. CREATININE, POCT 0.50(L) 0.57 - 1.11 mg/dL 07/20/2023 3:01 PM CDT [facility] Comment:Caution: Patients ta keith Hydroxyurea have falsely increased iStat Creatinine results. Verify creatinine results ordering a Creatinine (60613.2) eGFR >90 >90 mL/min/1.7 3m2 07/20/2023 3:01 PM CDT [facility] Comment:As of 2021, eG FR is calculated by the CKD-EPI creatinine equation without race adjustment. eGFR can be influenced by muscle mass, exercise, and diet. The reported eGFR is an estimation only and is only applicable if the renal function is stable. Blood BLOOD SPECIMEN / Unknown 07/20/2023 2:15 PM CDT 07/20/2023 3:01 PM CDT Aneudy Ojeda NP CHEMISTRY [facility] [address] [place] [address], * (ABNORMAL) IMMUNOGLOBULINS FREE LT CHAIN SERUM (07/20/2023 1:22 PM CDT) KAPPA FREE LIGHT CHAIN, S 2.41(H) 0.33 - 1.94 mg/dL 07/23/2023 10:42 AM CDT [facility] LAMBDA FREE LIGHT CHAIN, S 1.30 0.57 - 2.63 mg/dL 07/23/2023 10:42 AM CDT [facility]AT[facility] KAPPA/LAMBDA FLC RATIO 1.85(H) 0.26 - 1.65 07/23/2023 10:42 AM CDT [facility] TRAL LABORATORY Blood BLOOD SPECIMEN / Unknown Venipuncture / Unknown 07/20/2023 1:22 PM CDT 07/20/2023 1:32 PM CDT Destinee ELLIOTT SEND OUTS [facility] [address] [place] [address], * PRO-BNP (07/20/2023 1:22 PM CDT) PRO-BNP 314 <450 pg/mL 07/20/2023 3:07 PM CDT [facility] Blood BLOOD SPECIMEN / Unknown Venipuncture / Unknown 07/20/2023 1:22 PM CDT 07/20/2023 1:32 PM CDT Narrative [facility] - 07/20/2023 3:07 PM [...] heart failure. ? Destinee ELLIOTT SEND OUTS [facility] [address] [place] [address], * ECHO TTE LIMITED WO CONTRAST (07/09/2023 [...] CDT ECHOCARDIOGRAM ONDINA VARMA ? Accession#: ?? [id number] : ?1940 83 years Study Date: ?? 07/09/2023 11:26:54 AM Gender: F ?BP: ? 134/65 mmHg Height: 157.00 cm ?BSA: ?1.85 m? ? ? Weight: 84.00 kg ? Tech: ? MSR ? Referring MD: ANEUDY OJEDA Site: ? [facility] Reading Location: Mobile OP Patient Location: Outpatient. [...] . This study was interpreted by an [facility] accredited facility. ??Final ?? Procedure Note Víctor Dorantes MD - 07/09/2023 ECHOCARDIOGRAM ONDINA VARMA : 1940 83 years Study Date: 07/09/2023 11:26:54 AM Gender: F BP: 134/65 mmHg Height: 157.00 cm BSA: 1.85 m? ? ? Weight: 84.00 kg Tech: NUHA Referring MD: ANEUDY OJEDA Site: [facility] Reading Location: Mobile OP Patient Location: Outpatient. [...] 206 msec Aortic Valve: Vmax 1.6 m/s SAHNNAN (V) 2.05 cm? ? ? VTI 0.34 [...] . This study was interpreted by an [facility] accredited facility. Final Aneudy Ojeda NP ECHO ORD * EXTENDED HOLTER (07/09/2023) Aneudy Ojeda NP CARDIAC SERVICES OR D * US Venous doppler LEFT lower extremity (06/14/2023 12:57 PM BACK DIGGER OPERATOR) Anatomical Region Laterality Modality LEGS, LEG L, Abdomen Ultrasound Impressions 06/14/2023 1:13 PM BACK DIGGER OPERATOR No convincing evidence of left lower extremity deep vein thrombosis. ??Certainly no acute occlusive left lower extremity deep vein thrombosis. Narrative 06/14/2023 1:13 PM BACK DIGGER OPERATOR EXAM: Ultrasound venous Doppler left lower extremity TECHNIQUE: Grayscale, color, and duplex Doppler imaging of the deep venous system of the left lower extremity INDICATION: Swelling COMPARISON: 06/09/2019 FINDINGS: Laterality: Left Examined veins: Common femoral, femoral, deep femoral, popliteal, posterior tibial, peroneal, greater saphenous The peroneal veins were not seen. ?? The associate director qa reports partial compressibility in the left common femoral and proximal femoral veins. ??There may be some wall thickening but no thrombus is seen on grayscale imaging. ??Normal color Doppler flow. ??Normal venous waveforms on duplex Doppler imaging with normal augmentation. The right common femoral vein was sampled for comparison and is normal. ?? No signs of central stenosis or acute occlusion. Aneudy Alejandro Ojeda ROUTER SETTER US * CBC with Platelets no Differential (06/14/2023 8:34 AM BACK DIGGER OPERATOR) Only the most recent of2 resultswithin the time period is included. WHITE BLOOD COUNT 9.9 4.5 - 11.0 thou/cu mm 06/14/2023 8:47 AM BACK DIGGER OPERATOR [facility] RED BLOOD COUNT 4.57 4.00 - 5.20 mil/cu mm 06/14/2023 8:47 AM BACK DIGGER OPERATOR [facility] HEMOGLOBIN 13.7 12.0 - 16.0 g/dL 06/14/2023 8:47 AM BACK DIGGER OPERATOR [facility] HEMATOCRIT 40.0 33.0 - 51.0 % 06/14/2023 8:47 AM BACK DIGGER OPERATOR [facility] MCV 88 80 - 100 fL 06/14/2023 8:47 AM BACK DIGGER OPERATOR [facility] MCH 30.0 26.0 - 34.0 pg 06/14/2023 8:47 AM BACK DIGGER OPERATOR [facility] MCHC 34.3 32.0 - 36.0 g/dL 06/14/2023 8:47 AM BACK DIGGER OPERATOR [facility] RDW 14.4 11.5 - 15.5 % 06/14/2023 8:47 AM BACK DIGGER OPERATOR [facility] PLATELET COUNT 240 140 - 440 thou/cu mm 06/14/2023 8:47 AM BACK DIGGER OPERATOR [facility] MPV 9.5 6.5 - 11.0 fL 06/14/2023 8:47 AM BACK DIGGER OPERATOR [facility] NRBC 0.0 % 06/14/2023 8:47 AM BACK DIGGER OPERATOR [facility] ABS NRBC 0.0 thou /cu mm 06/14/2023 8:47 AM BACK DIGGER OPERATOR [facility] Blood BLOOD SPECIMEN / Unknown Capillary / Unknown 06/14/2023 8:34 AM BACK DIGGER OPERATOR 06/14/2023 8:40 AM BACK DIGGER OPERATOR Bo SCOTT HEMATOLOGY [facility] [address] [place] [address], * MAGNESIUM (06/14/2023 8:34 AM BACK DIGGER OPERATOR) MAGNESIUM 2.1 1.6 - 2.4 mg/dL 06/14/2023 9:21 AM BACK DIGGER OPERATOR [facility] Blood BLOOD SPECIMEN / Unknown Capillary / Unknown 06/14/2023 8:34 AM BACK DIGGER OPERATOR 06/14/2023 8:40 AM BACK DIGGER OPERATOR Hazel Beyer RN CHEMISTRY [facility] [address] [place] [address], * (ABNORMAL) Basic Metabolic Panel (06/14/2023 8:34 AM BACK DIGGER OPERATOR) Only the most recent of2 resultswithin the time period is included. SODIUM 132(L) 136 - 145 mmol/L 06/14/2023 9:21 AM [facility] POTASSIUM 4.7 3.5 - 5.1 mmol/L 06/14/2023 9:21 AM [facility] CHLORIDE 99 98 - 107 mmol/L 06/14/2023 9:21 AM [facility] CO2,TOTAL 23 22 - 29 mmol/L 06/14/2023 9:21 AM [facility] ANION GAP 10 5 - 18 06/14/2023 9:21 AM [facility] GLUCOSE 124(H) 70 - 99 mg/dL 06/14/2023 9:21 AM [facility] CALCIUM 8.4(L) 8.8 - 10.2 mg/dL 06/14/2023 9:21 AM [facility] BUN 13 8 - 23 mg/dL 06/14/2023 9:21 AM [facility] CREATININE 0.56 0.50 - 0.90 mg/dL 06/14/2023 9:21 AM [facility] BUN/CREAT RATIO 23(H) 10 - 20 9:21 AM BACK DIGGER OPERATOR [facility] eGFR 90(L) >90 mL/min/1.7 3m2 06/14/2023 9:21 AM BACK DIGGER OPERATOR [facility] Comment:As of 2021, eG FR is calculated by the CKD-EPI creatinine equation without race adjustment. ??eGFR can be influenced by muscle mass, exercise, and diet. ??The reported eGFR is an estimation only and is only applicable if the renal function is stable. Blood BLOOD SPECIMEN / Unknown Capillary / Unknown 06/14/2023 8:34 AM BACK DIGGER OPERATOR 06/14/2023 8:40 AM BACK DIGGER OPERATOR Bo DEVINEBS CHEMISTRY Performing Organization Address [facility]/ZIP Co de Phone Number [facility] [address] [place] [id number], [place] * SCAN-CARDIAC STRIP (06/14/2023 5:20 AM BACK DIGGER OPERATOR) Scanner OTHER * (ABNORMAL) ACTIVATED CLOTTING TIME [id number] ACT (06/13/2023 3:54 PM BACK DIGGER OPERATOR) [facility] Signature ACTIVATED CLOTTING TIME, POCT 232(H) 74 - 125 sec 06/13/2023 4:27 PM BACK DIGGER OPERATOR [facility] Blood BLOOD SPECIMEN / Unknown 06/13/2023 3:54 PM BACK DIGGER OPERATOR 06/13/2023 4:27 PM BACK DIGGER OPERATOR Davin Samson MD HEMATOLOGY Performing Organization Address City/[facility]/ZIP Co de Phone Number [facility] [address] [place] [id number], [place] * CVL TAVR (06/13/2023 3:39 PM BACK DIGGER OPERATOR) Anatomical Region Laterality Modality X-Ray Angiograph y 06/13/2023 3:39 PM BACK DIGGER OPERATOR Narrative Procedure Note Davin Samson MD - 06/13/2023 4:30 PM CST PROCEDURE: Transcatheter aortic valve implantation. PREOPERATIVE DIAGNOSIS: Severe aortic stenosis POSTOPERATIVE DIAGNOSIS: s/p TAVR OPERATORS: MD Nguyễn Wilcox MD Caitlin Kronenwetter, PA-C, [facility] Bo Styles MD DESCRIPTION The risks, benefits [...] [facility] [place] [address] Email: [email or web address] Davin Samson MD - 06/13/2023 5:54 PM CST [facility] Cardiac Catheterization Report Name: ONDINA VARMA Event Date: 06/13/2023 15:39 Excellian ID #: [id number] KIM #: [id number] Diagnostic Physician: DAVIN SAMSON [facility] Interventional Physician: DAVIN SAMSON [facility] Referring Physician: Primary Care Physician: CARLITA GAGE [...] with primary physician * Follow up with rack washer Consent & [place] Protocol The risks, benefits, and alternatives of the procedure were discussed withthe patient and written informed consent was obtained. [place] protocol was followed. TIME OUT conducted just prior tostarting procedure confirmed patient identity, site/side, procedure,patient position, and availability of correct equipment and implants (ifapplicable). Staff Name Title Holly Rowland RN Nurse Zeinab Platt RTDonavon Monitor Tim Oates LEISURE TRAVEL AGENT Fixture Relamper Asya Samson CVT Fixture Relamper Davin Samson Milling General Superintendent Bo Styles Fellow Destinee Shaffer Physician Guard Captain Nathaly Luna RN Nurse Procedures ? Ultrasound [...] healthcare professional providing the sedation ends personal eehswephjmykng-hr-gtak time with the patient. The medications listed above were verbally ordered by me and read back tome as documented above. Refer to the procedure log report for additional case details. electronically signed on 06/13/2023 5:54:07 PM with status of Final Davin Samson MD [facility][NOTE 3] [address], [place] [address] [address] [place] [address] (p) [phone](f) Davin Samson MD CV IMAGING * RBC W/O TYPE & SCREEN (06/13/2023 3:05 PM BACK DIGGER OPERATOR) QUANTITY 2 06/13/2023 3:0 5 PM BACK DIGGER OPERATOR [facility] Blood BLOOD SPECIMEN / Unknown 06/13/2023 3:00 PM BACK DIGGER OPERATOR Davin Samson MD BLOOD BANK [facility] [address] [place] [address], * RED BLOOD CELLS EA UNIT (06/13/2023 3:00 PM BACK DIGGER OPERATOR) Only the most recent of2 resultswithin the time period is included. CROSSMATCH Compatible Compatible [facility] PRODUCT BLOOD TYPE O Rh Positive [facility] PRODUCT ID NUMBER [id number] [facility] PRODUCT STATUS /Relea sed [facility] PRODUCT DESCRIPTION RBC -1 LR [facility] PRODUCT CODE [id number] [facility] Davin Samson MD BLOOD BANK Performing Organization Address [facility] Co de Phone Number [facility] [address] [place] [address], * Type and Screen (06/13/2023 11:52 AM BACK DIGGER OPERATOR) Only the most recent of2 resultswithin the time period is included. ABORH O Rh Positive 06/13/2023 12:56 PM BACK DIGGER OPERATOR [facility] ANTIBODY SCREEN Negative Negative 06/13/2023 12:56 PM BACK DIGGER OPERATOR [facility] SPECIMEN EXPIRATION DATE/TIME 06/16/23 23:59 06/13/2023 12:56 PM BACK DIGGER OPERATOR [facility] Blood BLOOD SPECIMEN / Unknown Venipuncture / Unknown 06/13/2023 11:52 AM BACK DIGGER OPERATOR 06/13/2023 12:06 PM BACK DIGGER OPERATOR Aneudy Ojeda NP BLOOD BANK Performing Organization Address [facility] Co de Phone Number [facility] [address] [place] [address], [place] [phone] * (ABNORMAL) Glucose, Fasting (06/13/2023 11:52 AM BACK DIGGER OPERATOR) Pathologist [facility] GLUCOSE 121(H) 70 - 99 mg/dL 06/13/2023 12:44 PM BACK DIGGER OPERATOR [facility] Blood BLOOD SPECIMEN / Unknown Venipuncture / Unknown 06/13/2023 11:52 AM BACK DIGGER OPERATOR 06/13/2023 12:06 PM BACK DIGGER OPERATOR Aneudy Ojeda NP CHEMISTRY Performing Organization Address [facility]/ZIP Co de Phone Number [facility] [address] [place] [address], * (ABNORMAL) ALBUMIN (06/07/2023 11:08 AM BACK DIGGER OPERATOR) Pathologist [facility] ALBUMIN 3.3(L) 4.0 - 4.9 g/dL 06/07/2023 11:48 AM BACK DIGGER OPERATOR [facility] Blood BLOOD SPECIMEN / Unknown Venipuncture / Unknown 06/07/2023 11:08 AM BACK DIGGER OPERATOR 06/07/2023 11:15 AM BACK DIGGER OPERATOR Davin Samson MD CHEMISTRY [facility] [address] [place] [address], [place] * CTA CHEST ABD PELVIS TAVR - DUAL READ (05/24/2023 3:01 PM BACK DIGGER OPERATOR) Anatomical Region Laterality Modality CHEST, Abdomen, Pelvis Computed Tomography Impressions 05/25/2023 4:02 PM BACK DIGGER OPERATOR 1. No acute nonvascular findings in the [...] PM (Electronic Signature) Narrative 05/25/2023 4:02 PM BACK DIGGER OPERATOR Images from the original result were not [...] deployment projection (balloon expandable device): EVANS 3??, DRAGLINE OPERATOR 2?? Optimal deployment projections (self expandable device): EVANS 21??, CAU 20?? Left ventricle / aortic ??angle: 55?? Access: Other findings: Coronary arteries: ??Dominance: Right coronary artery ??Left main Patent ??Left anterior descending artery Patent ??Left circumflex artery Patent ??Right coronary artery Patent Left atrium: Reduced distal appendage contrast opacification Left ventricle septal ECV: 35% Pericardium: Normal without effusion. Thoracic aorta: Left-sided arch. Qqns-ha-anrbcklg atheromatous disease in the arch and descending [...] PATIENT: Results are automatically released to your [employer] account once available, in compliance with federal regulations. ?? This means that you may see your results before your provider has had a chance to review them. ??Please allow 2-3 business days for your provider to comment on the results. Robert Farley MD [facility] 05/25/2023 For Patients: As a result of the Cures Act, medical imaging exams and procedure [...] conjunction with the services provided by the [facility] ([facility]). CLINICAL HISTORY: ?? Aortic stenosis. Cardiac [...] MD CT * HEMATOCRIT (05/24/2023 2:37 PM BACK DIGGER OPERATOR) HEMATOCRIT 44.2 33.0 - 51.0 % 05/24/2023 2:42 PM BACK DIGGER OPERATOR [facility] Blood BLOOD SPECIMEN / Unknown IV Start / Unknown 05/24/2023 2:37 PM BACK DIGGER OPERATOR 05/24/2023 2:37 PM BACK DIGGER OPERATOR Davin Samson MD HEMATOLOGY [facility] [address] [place] [address], [place] * ECHO TTE COMPLETE WO CONTRAST (05/16/2023 11:40 AM BACK DIGGER OPERATOR) AORTIC VALVE MEAN PG 48 mmHg EJECTION FRACTION 69 % PEAK TR VELOCITY 2.6 m/s LVEDD 3.7 cm Anatomical Region Laterality Modality Ultrasound 05/16/2023 11:0 9 AM BACK DIGGER OPERATOR Narrative 05/16/2023 2:34 PM BACK DIGGER OPERATOR ECHOCARDIOGRAM ONDINA VARMA ? Accession#: ?? [id number] : ?1940 82 years Study Date: ?? 05/16/2023 11:09:56 AM Gender: F ?BP: ? 124/80 mmHg Height: 155.00 cm ?BSA: ?1.80 m? ? ? Weight: 81.00 kg ? Tech: ? MJW ? Referring MD: CARLITA GAGE Site: ? [facility] Reading Location: Mobile-OP Patient Location: Outpatient. Procedure: [...] . This study was interpreted by an [facility] accredited facility. ??Final ?? Procedure Note Roger Mack MD - 05/16/2023 ECHOCARDIOGRAM ONDINA VARMA : 1940 82 years Study Date: 05/16/2023 11:09:56 AM Gender: F BP: 124/80 mmHg Height: 155.00 cm BSA: 1.80 m? ? ? Weight: 81.00 kg Tech: SHARMIN Referring MD: CARLITA GAGE Site: [facility] Reading Location: Mobile-OP Patient Location: Outpatient. Procedure: [...] . This study was interpreted by an [facility] accredited facility. Final Carlita Gage MD ECHO ORD * (ABNORMAL) XR DXA BONE DENSITY 2 SITES AXIAL (05/16/2023 11:04 AM BACK DIGGER OPERATOR) Anatomical Region Laterality Modality Spine, HIPS, HIPL, HIPR Other Impressions 05/16/2023 4:51 PM BACK DIGGER OPERATOR Osteopenia. RECOMMENDATIONS: The National Osteoporosis Foundation recommends [...] to assess therapeutic efficacy. Beth Rivera PA-C [facility] 05/16/2023 Narrative 05/16/2023 4:51 PM BACK DIGGER OPERATOR For Patients: Results are automatically released to your [facility] account once available, in compliance with federal regulations. This means that you may see your results before your provider has had a chance to review them. Please allow 2-3 business days for your provider to comment on the results. XR DXA Bone Mineral Density (BMD) EXAM LOCATION: [facility] [address] [facility] [address] PATIENT NAME: Ondina Varma DATE OF : [...] two scanners are made by the same fryline attendant. PROCEDURE: Dual-energy x-ray absorptiometry performed with routine [...] Documents on File Type Date Recorded Patient Neurological Physiotherapist Expl anation Power of [place] Conservation Laborer POLST 06/30/2019 12:00 AM 06/30/2019 Healthcare Directive [...] 10:39 PM 01/17/2019 7:12 PM Care Teams Water Sander Relationship Specialty Start Date End Date Carlita Gage MD [address] [place] [address] PCP - General 06/01/15 Pebbles Solano AuD [address] [place] [address] Audiology 05/29/16 Holly Johnson DO [address] [place] [address] Physical Medicince Rehab Physical Medicine and Rehabilitation 12/04/19 [facility] [address], [place] [address] 08/18/22
== END 2023-08-09 07:17 | disposition home or self-care (01) ==
LOC: AMB 08-13 14:39
PROVIDERS: PCP Internal Medicine; Visit Provider Family Medicine
DX: M25.571 Pain in right ankle and joints of right foot (principal)
CPT/HCPCS: A0425; A0427

== ENCOUNTER 2023-08-09 07:47 | Emergency (ER) | payer OTHER, SELFPAY ==
[2023-08-09 07:57] VITALS: BP 142/79; PULSE 64; RESP 18; O2SAT 90; BMI 25.6
--- NOTE | 2023-08-09 08:00 | XR_ITS ---
Patient: GEORGE VARMA Facility:?[facility] Patient ID:?[id number] Site Patient ID:?[id number]. Site :?[id number] Study:?XRay-Extremity Right ANKLE 3V-08/09/2023 8:23:10 AM Ordering Physician:?SHERITA Final Report: Indication: Pain and recent fracture Comparison: None available. Technique: AP, Lateral, and Oblique views right ankle ankle were obtained Findings: There is a nondisplaced oblique fracture of the distal fibula again seen without significant periosteal healing. No evidence of new acute fracture is identified. The ankle mortise is symmetrical. The talar dome is smooth and intact. The joint spaces are otherwise grossly preserved. There is extensive malleolar soft tissue swelling. Impression: Redemonstration of nondisplaced oblique fracture of the distal fibula with moderate malleolar soft tissue swelling. Dictated by Robbie Barajas MD @ 08/09/2023 8:40:25 AM Signed by:?Robbie Barajas MD @08/09/2023 8:40:25 AM (Electronic Signature)
--- NOTE | 2023-08-09 08:24 | US_ITS ---
Patient: GEORGE VARMA Facility:?[facility] Patient ID:?[id number] Site Patient ID:?[id number]. Site :?[id number] Study:?US-Extremity Right LEV RT-08/09/2023 9:06:50 AM Ordering Physician:?TATIANA AYALA M.D. Final Report: INDICATION: History of DVT, on Eliquis, right leg pain COMPARISON: None. TECHNIQUE: Grayscale, color Doppler, and duplex Doppler of the right lower extremity deep and superficial venous systems. FINDINGS: Laterality: Right Examined veins: common femoral, femoral, deep femoral, popliteal, peroneal, posterior tibial greater saphenous The examined veins are patent with normal grayscale appearance and normal compressibility where anatomically feasible. Normal color Doppler flow. Normal venous waveforms on duplex Doppler ultrasound with normal augmentation. The left common femoral vein is sampled for comparison and is normal. IMPRESSION: No deep or superficial venous thrombosis in the right lower extremity. Dictated by Shelby Montana MD @ 08/09/2023 9:39:25 AM Signed by:?Shelby Montana MD @08/09/2023 9:39:25 AM (Electronic Signature)
--- NOTE | 2023-08-09 08:25 | ED.GENADULT ---
HPI - General Adult General Chief complaint: Extremity Pain/Injury, Lower Stated complaint: R ankle injury Time Seen by Provider: 08/09/23 08:06 History of Present Illness HPI narrative: Patient is a 83-year-old woman who has history of right ankle fracture in the past who woke during the night with pain in the right ankle laterally. She does recall any injuries. She was up in the middle night to go the restroom with her walker and seen we getting along just fine. This morning she had severe pain in the lateral right ankle which was isolated without radiculopathy with exception of extension to the posterior calf. Patient was unable to bear weight and comes in by ambulance. She has had no recent falls and no other significant symptoms. She has no skin breakdown no swelling no redness no fever or chills. Related Data Home Medications Medication Instructions Recorded Confirmed Lactobacillus acidophilus 500 500 mmu cells PO DAILY 11/28/22 08/09/23 million cell capsule acetaminophen 325 mg capsule 325 mg PO Q4H PRN 11/28/22 08/09/23 apixaban 5 mg tablet (Eliquis) 5 mg PO Q12H 11/28/22 08/09/23 baclofen 20 mg tablet 20 mg PO HS 11/28/22 07/26/23 baclofen 5 mg tablet 5 - 10 mg PO Q12H PRN 11/28/22 08/09/23 calcium citrate 200 mg (950 mg) 200 mg PO DAILY 11/28/22 08/09/23 tablet fluticasone propionate 50 1 spray intranasal TID PRN 11/28/22 08/09/23 mcg/actuation nasal spray,suspension magnesium oxide 400 mg (241.3 mg 400 mg PO DAILY 11/28/22 08/09/23 magnesium) tablet simvastatin 20 mg tablet 20 mg PO QPM 11/28/22 08/09/23 alendronate 70 mg tablet 70 mg PO QWEEK 06/03/23 08/09/23 acetaminophen 325 mg tablet 650 mg PO 06/13/23 07/26/23 melatonin 3 mg tablet 3 mg PO HS 06/13/23 08/09/23 furosemide 40 mg tablet 40 mg PO DAILY 08/09/23 08/09/23 Allergies Allergy/AdvReac Type Severity Reaction Status Date / Time albuterol Allergy Mild nervous Verified 08/09/23 07:56 Sulfa (Sulfonamide Allergy Unknown Verified 08/09/23 07:56 Antibiotics) Review of Systems Status of ROS: Reports: 10 or more systems reviewed and unremarkable except as noted in History and below PFSH PFSH Medical History Sleep apnea ?G47.30 - Sleep apnea, unspecified (ICD-10) Osteoporosis ?M81.0 - Age-related osteoporosis without current pathological fracture (ICD-10) Rheumatoid arthritis ?M06.9 - Rheumatoid arthritis, unspecified (ICD-10) Primary cancer of left breast (06/12/18) ?C50.912 - Malignant neoplasm of unspecified site of left female breast (ICD-10) Lumbar stenosis with neurogenic claudication (11/20/18) ?M48.062 - Spinal stenosis, lumbar region with neurogenic claudication (ICD-10) Diabetes ?E11.9 - Type 2 diabetes mellitus without complications (ICD-10) Urinary retention ?R33.9 - Retention of urine, unspecified (ICD-10) Fall ?W19.XXXA - Unspecified fall, initial encounter (ICD-10) Trigger finger, right middle finger (08/01/17) ?M65.331 - Trigger finger, right middle finger (ICD-10) Tear of left glenoid labrum (11/27/18) ?S43.432A - Superior glenoid labrum lesion of left shoulder, initial encounter (ICD-10) Sensorineural hearing loss, bilateral (05/11/09) ?H90.3 - Sensorineural hearing loss, bilateral (ICD-10) Quadriplegia, unspecified (09/07/20) ?G82.50 - Quadriplegia, unspecified (ICD-10) Pure hypercholesterolemia ?E78.00 - Pure hypercholesterolemia, unspecified (ICD-10) Perennial allergic rhinitis ?J30.89 - Other allergic rhinitis (ICD-10) Osteopenia (04/25/10) ?M85.80 - Other specified disorders of bone density and structure, unspecified site (ICD-10) Osteoarthritis ?M19.90 - Unspecified osteoarthritis, unspecified site (ICD-10) Nonrheumatic mitral valve regurgitation (09/07/20) ?I34.0 - Nonrheumatic mitral (valve) insufficiency (ICD-10) Muscle spasm (11/27/18) ?M62.838 - Other muscle spasm (ICD-10) Lumbar foraminal stenosis (06/12/18) ?M48.061 - Spinal stenosis, lumbar region without neurogenic claudication (ICD-10) Left hand weakness (01/17/19) ?R29.898 - Other symptoms and signs involving the musculoskeletal system (ICD-10) Impingement syndrome of left shoulder (11/20/18) ?M75.42 - Impingement syndrome of left shoulder (ICD-10) History of cancer of left breast (06/28/01) ?Z85.3 - Personal history of malignant neoplasm of breast (ICD-10) Gastroesophageal reflux disease without esophagitis ?K21.9 - Gastro-esophageal reflux disease without esophagitis (ICD-10) Bronchiectasis without complication (06/02/16) ?J47.9 - Bronchiectasis, uncomplicated (ICD-10) Health care directive on file ?Z78.9 - Other specified health status (ICD-10) Syrinx of spinal cord ?G95.0 - Syringomyelia and syringobulbia (ICD-10) History of DVT (deep vein thrombosis) ?Z86.718 - Personal history of other venous thrombosis and embolism (ICD-10) Severe aortic stenosis ?I35.0 - Nonrheumatic aortic (valve) stenosis (ICD-10) Durable power of weight control engineer in chart Social History Narrative: patient lives on the [facility] in independent housing unit with her . They have hot saw helper for 6-8 hours a day to help them. Her has dementia and needs 24/7 supervision. Code status is DNR. Her daughter Yesy has and son Alex have healthcare power of weight control engineer. She does not smoke. She rarely drinks alcohol. What is your current living situation?: I presently have a place to live Problems where you live: no known problems Problems where you live details: n/A In the past 12 months, utilities in danger of being shut off: no In past 12 months, lack of transportation kept you from medical appts, meetings, work, or getting things needed for daily living: no In the past 12 mos, have been you worried that your food would run out before you had money to buy more?: never true In the past 12 mos, the food you bought just didn't last and you didn't have money to buy more?: never true Highest level of school completed/degree received: don't know Smoking Status: Never smoker Do you use any of these nicotine containing products: None Second hand tobacco smoke exposure: No How often do you have a drink containing alcohol: never How often do you have six or more drinks on one occasion: Never AUDIT-C Alcohol total score: 0 Non-prescribed substance use: denies use Caffeine: No How often does anyone, including family, friends and others, physically hurt you: never How often does anyone, including family, friends and others, insult or talk down to you: never How often does anyone, including family, friends and others, threaten you with harm: never How often does anyone, including family, friends and others, scream or curse at you: never service: No Exam Narrative: Exam Narrative: EXAM GENERAL: Patient appears comfortable and well. EYES: No scleral icterus. LYMPH: No supraclavicular or cervical lymphadenopathy. SKIN: Visible skin seen during exam normal or with benign process only. EXT: No dependent lower extremity pedal edema. Minimal pain with manipulation of the right ankle no obvious deformities. HEART: Regular rate and rhythm with no murmurs, rubs, or gallops. LUNGS: Clear to auscultation bilaterally with no crackles or wheezes. ABD: Soft, non tender, non distended. PSYCH: Good eye contact, speech is not pressured. Const: Vital Signs, click to edit/add: Vital Signs - 24 hr 08/09/23 07:57 Pulse Rate [Right Pulse Oximeter] 64 Respiratory Rate 18 Blood Pressure [Ri ght Upper Arm] 142/79 H Pulse Oximetry 90 Oxygen Delivery Me thod Room Air Course Course ED Course: X-ray of the right ankle in duplex of the right lower extremity pending. Vital Signs Vital signs: Initial Vital Signs Temperature Source Temporal Artery Scan 08/09/23 07:57 Pulse Rate 64 08/09/23 07:57 Respiratory Rate 18 08/09/23 07:57 Blood Pressure 142/79 H 08/09/23 07:57 Blood Pressure Mean 100 08/09/23 07:57 Blood Pressure Position Semi-Fowlers 08/09/23 07:57 Pulse Oximetry 90 08/09/23 07:57 Oxygen Delivery Method Room Air 08/09/23 07:57 Vital Signs Pulse Rate 64 08/09/23 07:57 Respiratory Rate 18 08/09/23 07:57 Blood Pressure 142/79 H 08/09/23 07:57 Pulse Oximetry 90 08/09/23 07:57 Oxygen Delivery Method Room Air 08/09/23 07:57 Pulse Rate 64 08/09/23 07:57 Respiratory Rate 18 08/09/23 07:57 Blood Pressure 142/79 H 08/09/23 07:57 Pulse Oximetry 90 08/09/23 07:57 Oxygen Delivery Method Room Air 08/09/23 07:57 Medical Decision Making MDM Narrative Medical decision making narrative: Patient is an 83-year-old woman who presents with pain in right ankle other occurred overnight. She is recovering from a fibular fracture. X-ray series of the ankle showed healing fracture. On duplex of the lower extremity was negative for DVT. Patient ambulates at her baseline and feels like she can go home to continue current medication. All questions were answered. Differential diagnosis includes but not limited to ankle fracture ankle dislocation cellulitis DVT ruptured Achilles injured gastrocnemius. Discharge Plan Discharge Clinical Impression: Ankle pain Patient Disposition: Home, Self-Care Condition: Stable Instructions: Ankle Fracture (ED) Additional Instructions: Continue current medications Advanced activity as tolerated Follow-up if symptoms recur. Activity Level: No Restrictions Discharge Diet: Regular Prescriptions: No Action acetaminophen 325 mg tablet 650 mg PO Rx Instructions: Take 650 mg by mouth every 4 hours if needed for Pain. Max acetaminophen dose: 4000mg in 24 hrs. melatonin 3 mg tablet 3 mg PO HS Rx Instructions: Take 1 Tablet (3 mg) by mouth once daily. fluticasone propionate 50 mcg/actuation spray,suspension 1 spray INTRANASAL TID PRN Patient Comments: [NO ORIGINAL SIG] baclofen 20 mg tablet 20 mg PO HS Eliquis 5 mg tablet 5 mg PO Q12H simvastatin 20 mg tablet 20 mg PO QPM baclofen 5 mg tablet 5 - 10 mg PO Q12H PRN Lactobacillus acidophilus 500 million cell capsule 500 mmu cells PO DAILY magnesium oxide 400 mg (241.3 mg magnesium) tablet 400 mg PO DAILY acetaminophen 325 mg capsule 325 mg PO Q4H PRN calcium citrate 200 mg (950 mg) tablet 200 mg PO DAILY alendronate 70 mg tablet 70 mg PO QWEEK furosemide 40 mg tablet 40 mg PO DAILY Follow Up/Referrals: Carlita Gage MD [Primary Care Provider] - Stand Alone Forms: Stepsss Info Instructions
--- OUTSIDE RECORDS SUMMARY | 2023-08-09 08:30 | XMS_ITS | Clinical Summary ---
Author Name Unknown Organization [facility] Address [place], [place] [address] Care Team Providers Care Dry Curer Name Role Phone Carlita Gage MD Primary Care Provider Russ Pebbles Fernando David Unavailable [phone] EverasiaHolly stafford DO Unavailable [phone] [facility] [place] Unavailable Allergies Active Allergy Reactions Criticality Noted Date Comments Albuterol 07/06/2006 anxious Sulfa (Sulfonamide Antibiotics) 12/2006 Medications Medication Sig Dispensed Refills Start Date End Date Status acetaminophen (TYLENOL) 325 mg tablet Take 650 mg by mouth every 4 hours if needed for Pain. Max acetaminophen dose: 4000mg in 24 hrs. Active melatonin 3 mg tablet Take 1 Tablet (3 mg) by mouth once daily. 0 1 Active magnesium oxide (MAG-OX 400) 400 mg tablet Take 1 Tablet (400 mg) by mouth once daily. 0 1 Active Lactobacillus acidophilus 500 million cell cap Take one capsule daily 0 3 Active fluticasone (50 mcg per actuation) nasal solution (FLONASE)Indications:Per ennial allergic rhinitis USE 1 SPRAY IN EACH NOSTRIL TWICE DAILY 48 g 2 3 Active CPAPIndications:DREW (obstructive sleep apnea) CPAP machine for home use at pressure 10.6 cmw, full face mask x1/3month with a full face cushion x1/mo 1 Each 11 3 Active simvastatin (ZOCOR) 20 mg tabletIndications:Pure hypercholesterolemia Take 1 Tablet (20 mg) by mouth once daily in the evening. 90 Tablet 3 3 Active baclofen (LIORESAL) 5 mg tab tabletIndications:[facility] Take 1-2 Tablets (5-10 mg) by mouth 2 times daily if needed (spasms). 180 Tablet 4 3 Active calcium carbonate-vitamin D3, 600 mg-400 unit, 600 mg-10 mcg (400 unit) tablet Take 1 Tablet by mouth once daily with a meal. 3 Active baclofen (LIORESAL) 20 mg tabletIndications:Syrinx of spinal cord (HC),Spasticity TAKE 1 TABLET BY MOUTH AT BEDTIME. 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 180 Tablet 3 4 Active alendronate (FOSAMAX) 70 mg tabletIndications:Osteop enia, unspecified location Take 1 Tablet (70 mg) by mouth once a week in the morning. Take on empty stomach with full glass of water. Do not lie down for 1 hr. 12 Tablet 3 4 Active amoxicillin (AMOXIL) 500 mg tabletIndications:S/P TAVR (transcatheter aortic valve replacement) Take 4 tabs (2000 mg) one hour prior to dental procedure 4 Tablet 4 Active furosemide (LASIX) 40 mg tabletIndications:edema Take 40 mg by mouth once daily. take one tablet (40 mg) by mouth daily in am Indications: visible water retention Active multivitamin (MVI) tabletIndications:vitami n deficiency prevention Take 1 Tablet by mouth once daily. take one tablet daily for supplement Indications: treatment to prevent vitamin deficiency Active Vszyfeoudxo-Etodvvpcu-Gg t C-Mn 943-449-73-5 mg tablet Take 2 Tablets by mouth once daily. take 2 tablets by mouth daily Active docosahexaenoic acid/epa (FISH OIL ORAL)Indications:supplem ent Take 1,000 mg by mouth once daily. Take 1 capsule (1,000 mg) by mouth daily Indications: supplement Active Active Problems Problem Noted Date Diagnosed Date S/P TAVR (transcatheter aortic valve replacement ) 07/11/2023 Aortic stenosis, severe 2023 Nonrheumatic mitral valve [...] Encounters Date Type Department Care Team Description 08/08/2023 1:00 PM CDT Home Care Visit [facility] [address] [place] [address] Abiodun Pina, RN SN - HOME VISIT 08/08/2023 Telephone [facility] [address] [place] [address] Carlita Gage MD Medication Management (lift chair ) 08/06/2023 Nurse Triage [facility] [address] [place] [address] Carlita Gage MD Appointment Request 08/06/2023 Telephone [facility] [address] [place] [address] Ruthie Lozano, medicine assistant 08/06/2023 Plan of Care Documentation [facility] [address] [place] [phone] 08/05/2023 9:00 AM CDT Home Care Visit [facility] [address] [place] [phone] Ruthie Lozano, RN SN - OASIS START OF CARE 08/01/2023 Transcribe Orders [facility] [address] [place] [phone] Gladis Godoy MD 07/20/2023 3:00 PM CDT Office Visit [facility] [address] [place] [address] Bo Styles MBBS CV Valve Est (VALVE EST: 30DAY S/P TAVR, LABS ECHO CT MORPH PRIOR, NEEDS EKG, KCCQ12, 5MWALK, LETTER GIVEN, HJK//PCP: Carlita Gage MD/) 07/20/2023 1:20 PM CDT Orders Only [facility] [address] [place] [address] Lab 07/20/2023 1:16 PM CDT - 07/20/2023 11:59 PM CDT Hospital Encounter [facility] [address] [place] [address] Aneudy Ojeda NP Severe aortic stenosis 07/20/2023 Travel 07/13/2023 Nurse Triage [address] [phone] Carlita Gage MD Home Care (Extension of current care at [facility]. ) 07/13/[address] [phone] Carlita Gage MD Injury (Update on right ankle ) 07/09/2023 11:00 AM CDT Ancillary Procedure [facility] [address] [place] [address] 07/09/2023 Orders Only [facility] [address] [place] [address] Archana Perdomo 1 scan: (1-Ord) Final 07/09/2023 Travel 07/03/2023 Orders Only [facility] [address] [place] [address] Destinee Shaffer PA <No scans attached> 06/22/2023 Telephone [facility] [address] [place] [address] Davin Samson MD post TAVR SX 06/18/2023 Telephone [facility] [address] [place] [address] Davin Samson MD Concerns 06/13/2023 9:42 AM RAILROAD CAR LETTERER - 06/14/2023 1:55 PM RAILROAD CAR LETTERER Hospital Encounter [facility] [address] [place] [address] Davin Samson MD Aortic stenosis, severe (Primary Dx) Discharge Disposition: Detention Facility 06/13/2023 Travel 06/08/2023 Orders Only [facility] [address] [place] [address] Aneudy Ojeda NP <No scans attached> 06/07/2023 11:30 AM RAILROAD CAR LETTERER Office Visit [facility] [address] [place] [phone] Aneudy Ojeda NP CV Valve Est (VALVE EST:PRE-OP TAVR, LABS PRIOR,NEEDS EKG,KCCQ12, 5M WALK,LETTER SENT, HJK//PCP: Carlita Gage MD/) 06/07/2023 11:00 AM RAILROAD CAR LETTERER Orders Only [facility] [address] [phone] Lab (/) 06/07/2023 Travel 06/06/2023 Telephone [facility] [address] [place] [address] Davin Samson MD Health Maintenance Update (Recent leg fracture) 06/04/2023 Telephone [facility] [address] [place] [address] Davin Samson MD Health Maintenance Update (Post valve conference discussion /) 06/01/2023 11:00 AM RAILROAD CAR LETTERER Telemedicine [facility] [address] [phone] Bruce Guadalupe MD Fatigue 06/01/2023 Telephone [facility] [address] [phone] Davin Samson MD Questions 05/31/2023 Telephone [facility] [address] [address] Davin Samson MD Questions 05/31/2023 Travel 05/24/2023 2:30 PM RAILROAD CAR LETTERER Ancillary Procedure [facility] [address] [place] [address] [address] [place] [address] 05/24/2023 1:30 PM RAILROAD CAR LETTERER Office Visit [facility] [address] [place] [address] [address] [place] [address] Davin Samson MD CV General Cardiology New (Initial visit, ref by Too for severe . ) 05/24/2023 Travel 05/22/2023 Travel 05/22/[address] [phone] Carlita Gage MD Refill Request (baclofen (LIORESAL) 20 mg tablet ) 05/22/[address] [phone] Carlita Gage MD Refill Request (Eliquis) 2023 Telephone [facility] [address] [phone] Cardiology, Anw Appointment (ANY CARD) 05/16/2023 11:00 AM RAILROAD CAR LETTERER Ancillary Procedure [facility] [address] [place] [address] 05/16/2023 10:30 AM RAILROAD CAR LETTERER Ancillary Procedure [facility] [address] [place] [address] 05/15/2023 Travel from Last 3 Months Immunizations Name Administration Dates Next Due COVID-19 Vaccine Spikevax (M oderna 50mcg/0.5mL) 12YO+ [id number] Formula PF 04/06/2023 COVID-19 vaccine (Moderna 100mcg/0.5mL) [...] of emphyse ma Heart Disease Mother of [place] Stroke Sister 3 Good Health Son Relation [...] Sign Reading Time Taken Comments Blood Pressure 150/76 08/08/2023 1:30 PM CDT Pulse 66 08/08/2023 1:30 PM CDT Temperature 36.2 ??C (97.1 ??F) 08/08/2023 1:30 PM CD T Respiratory Rate 18 08/08/2023 1:30 PM CDT Oxygen Saturation 92% 08/08/2023 1:30 PM CDT Inhaled Oxygen Concentration - - Weight 86.2 kg (190 lb) 08/05/2023 10:00 AM CDT Height 157.5 cm (5' 2) 08/05/2023 10:00 AM CDT Body Mass Index 34.75 08/05/2023 10:00 AM CDT Plan of Treatment Upcoming Encounters Date Type Department Care Team (Late st Contact Info) Description 08/09/2023 10:00 AM CDT Home Care Visit [facility] [address] [place] [phone] Leonor Arriola 08/09/2023 1:00 PM CDT Home Care Visit [facility] [address] [place] [phone] Betty Kothari, PT [address] [place], [place] [phone] 08/09/2023 3:00 PM CDT Home Care Visit [facility] [address] [place] [phone] Janneth Gifford, OT [address] [place] [address] 08/13/2023 11:30 AM CDT Home Care Visit [facility] [address] [place] [address] Abiodun Pina, RN [address] [facility] [place] [address] 08/17/2023 10:30 AM CDT Home Care Visit [facility] [address] [place] [address] Leonor Arriola 08/24/2023 4:00 AM CDT Home Care Visit [facility] [address] [place] [address] Leonor Arriola 08/31/2023 4:00 AM CDT Home Care Visit [facility] [address] [place] [address], [place] [address] Leonor Arriola Health Maintenance Due Date Last Done Comments Influenza for age 65+ 12/30/2023 04/06/2023 , 02/22/2022, 01/31/2021, Additional history exists Depression screening for age [...] for age 50+ Completed 02/19/2018, 10/24/2017, 10/25/2006 COVID-19 vaccine series Completed 04/06/20, 02/22/2022, 12/14/2021, Additional history exists DEXA/DXA scan for age 65+ Completed 2023, 05/21/2012, 04/26/2010, Additional history exists Medical Devices Implanted Type Area Supervisor Liquefaction Device Identifier Shelf Expiration Date Model / Serial / Lot Screw Neuro 4mm Matrixneuro Slf Drill Titnm - [id number] Implanted:Qty: 9 on 06/05/2019 by Clement Khan MBChB at [facility] [employer] CMF [id number]. [id number] .[id number]# / / Plate Facial 7hole Synthes Adaption - [id number] Implanted:Qty: 2 on 06/05/2019 by Clement Khan MBChB at [facility] [employer] CMF [id number] # / / Procedures Procedure Name Priority Date/Time Associated Diagnosis Comments PROTEIN ELP,URINE RANDOM Routine 07/20/2023 4:04 PM CDT Cardiac amyloidosis (HC) IMMUNOFIXATION ELP, URINE Routine 07/20/2023 4:04 PM CDT Cardiac amyloidosis (HC) EKG 12 LEAD Routine 07/20/2023 2:55 PM CDT Severe aortic stenosis CT CARDIAC MORPHOLOGY W DUAL READ Routine 07/20/2023 2:22 PM CDT Severe aortic stenosis CREATININE,ISTAT Routine 07/20/2023 2:15 PM CDT PRO-BNP Routine 07/20/2023 1:22 PM CDT Cardiac amyloidosis (HC) Heart failure, unspecified HF chronicity, unspecified heart failure type (HC) IMMUNOGLOBULINS FREE LT CHAIN SERUM Routine 07/20/2023 1:22 PM CDT Cardiac amyloidosis (HC) ECHO TTE LIMITED WO CONTRAST Routine 07/09/2023 12:24 PM CDT Severe aortic stenosis EXTENDED HOLTER Routine 07/09/2023 Other right bundle-branch block US VENOUS LOWER EXTREMITY LEFT ANDREW 06/14/2023 12:57 PM RAILROAD CAR LETTERER MAGNESIUM Early AM 06/14/2023 8:34 AM RAILROAD CAR LETTERER BASIC METABOLIC PANEL Early AM 06/14/2023 8:34 AM RAILROAD CAR LETTERER CBC W PLT NO DIFF Early AM 06/14/2023 8:3 4 AM RAILROAD CAR LETTERER EKG 12 LEAD Early AM 06/14/2023 6:14 AM RAILROAD CAR LETTERER SCAN-CARDIAC STRIP 06/14/2023 5: 20 AM RAILROAD CAR LETTERER ECHO TTE LIMITED WO CONTRAST W COLOR W LTD DOPPLER Routine 06/13/2023 5:54 PM RAILROAD CAR LETTERER EKG 12 LEAD ANDREW 06/13/2023 4:50 PM RAILROAD CAR LETTERER HCHG ACTIVATED CLOTTING TM CV Timed 06/13/2023 3:54 PM RAILROAD CAR LETTERER CVL TAVR Routine 06/13/2023 3:39 PM RAILROAD CAR LETTERER RBC W/O TYPE & SCREEN STAT 06/13/2023 3:05 PM RAILROAD CAR LETTERER RED BLOOD CELLS EA UNIT STAT 06/13/19 24 3:00 PM RAILROAD CAR LETTERER RED BLOOD CELLS EA UNIT STAT 06/13/19 24 3:00 PM RAILROAD CAR LETTERER TYPE & SCREEN Preop 06/13/2023 11:52 AM RAILROAD CAR LETTERER GLUCOSE, FASTING Preop 06/13/2023 11:5 2 AM RAILROAD CAR LETTERER EKG 12 LEAD Routine 06/07/2023 11:12 AM RAILROAD CAR LETTERER Aortic valve stenosis, etiology of cardiac valve disease unspecified TYPE & SCREEN Routine 06/07/2023 11:08 AM RAILROAD CAR LETTERER Aortic valve stenosis, etiology of cardiac valve disease unspecified Pre-op testing ALBUMIN Routine 06/07/2023 11:08 AM RAILROAD CAR LETTERER Aortic valve stenosis, etiology of cardiac valve disease unspecified Pre-op testing BASIC METABOLIC PANEL Routine 06/07/2023 11:08 AM RAILROAD CAR LETTERER Aortic valve stenosis, etiology of cardiac valve disease unspecified Pre-op testing CBC W PLT NO DIFF Routine 06/07/2023 11: 08 AM RAILROAD CAR LETTERER Aortic valve stenosis, etiology of cardiac valve disease unspecified Pre-op testing CTA CHEST ABD PELVIS TAVR - DUAL READ ANDREW 05/24/2023 3:01 PM RAILROAD CAR LETTERER Aortic stenosis, severe CREATININE,ISTAT Routine 05/24/2023 2:41 PM RAILROAD CAR LETTERER Aortic stenosis, severe HEMATOCRIT Routine 05/24/2023 2:37 PM RAILROAD CAR LETTERER Aortic stenosis, severe Pre-procedure lab exam ECHO TTE COMPLETE WO CONTRAST Routine 05/16/2023 11:40 AM RAILROAD CAR LETTERER Systolic murmur Aortic valve stenosis, etiology of cardiac valve disease unspecified XR DXA BONE DENSITY 2 SITES AXIAL Routine 05/16/2023 11:04 AM RAILROAD CAR LETTERER Osteopenia, unspecified location from Last 3 Months Results * IMMUNOFIXATION ELP, URINE (07/20/2023 4:04 PM CDT) IFIX INTERP,URINE Immunofixation on urine shows no monoclonal protein detected and no free light chains detected. Interpreted and electronically signed by: Cynthia Ramirez MD 07/24/2023 3:49 PM CDT [facility] [employer] LABORATORY-CE [facility]AL LAB[facility]AT[facility] PROTEIN QUANT,RAND URINE <6 1 - 14 mg/dL 07/24/2023 3:49 PM CDT [facility] LABORATORY-CE NTRAL LABORATORY Urine URINE SPECIMEN / Unknown Non-Blood / Unknown 07/20/2023 4:04 PM CDT 07/20/2023 4:14 PM CDT Destinee ELLIOTT URINE Performing Organization Address City/[facility]/ZIP Co de Phone Number [facility] [employer]CENTRAL LABORATORY [address] [place] [address], [place] * PROTEIN ELP,URINE RANDOM (07/20/2023 4:04 PM CDT) Pathologist [facility] ELP INTERP, URINE Essentially no proteinuria. No monoclonal protein detected. Interpreted and electronically signed by: Cynthia Ramirez MD 07/24/2023 4:41 PM CDT [facility] PROTEIN QUANT,RAND URINE <6 1 - 14 mg/dL 07/24/2023 4:41 PM CDT [facility] Urine URINE SPECIMEN / Unknown Non-Blood / Unknown 07/20/2023 4:04 PM CDT 07/20/2023 4:14 PM CDT Destinee ELLIOTT URINE Performing Organization Address [facility] Co de Phone Number [facility] [employer])[facility] [address] [place] [id number], [place] * EKG 12 LEAD (07/20/2023 2:55 PM CDT) Only the most recent of3 resultswithin the time period is included. Pathologist [facility] Interpretation Normal sinus rhythm Left axis deviation Right bundle branch block Abnormal ECG Ventricular Rate 66 BPM Atrial Rate 66 BPM P-R Interval 206 ms QRS Duration 128 ms QT 432 ms QTc 452 ms P [place] 33 degrees R [place] -34 degrees T [place] 28 degrees 07/20/2023 2:55 PM CDT 07/20/2023 9:15 PM CDT Aneudy Ojeda FISH SMOKER EKG ORD * CT CARDIAC MORPHOLOGY W DUAL READ (07/20/2023 2:22 PM CDT) Anatomical Region Laterality Modality HEART Computed Tomogra phy Impressions 07/25/2023 7:06 PM CDT No acute or suspicious extracardiac imaging abnormality. Please note that all CT scans at this facility use dose modulation, iterative reconstruction and/or weight-based dosing when appropriate to reduce radiation dose to as low as reasonably achievable. ?? Francois Pope M.D. Pediatric/Diagnostic Radiologist Cardiothoracic Imaging [employer] [facility] [email or web address] SHH/jj / ?? Narrative 07/25/2023 7:06 PM CDT STUDY: CT CARDIAC MORPHOLOGY Study date: 07/20/2023 Indication: 83 year-old female status post transcatheter aortic valve replacement procedure on has been referred for evaluation of prosthetic leaflet function and morphology. STUDY PARAMETERS: Scanner: [employer] CT Contrast: 70 ml of Omnipaque 350 Scan protocol: Helical with dose modulation Radiation dose length product: 14.4 mSV Image quality: Good FINAL IMPRESSIONS: Prosthetic aortic valve leaflets appear normal without evidence of hypoattenuated leaflet thickening (HALT). Normal left ventricular systolic function No evidence of left atrial thrombus. Please see radiology report for noncardiac findings. FINDINGS: Aortic valve: Well-seated prosthesis. Leaflets appear normal without thickening. Normal leaflet excursion. Prosthetic valve struts do not impede access to the coronary ostia. Left ventricle: Normal systolic function Left atrium: No evidence of thrombus Pericardium: Normal without effusion Thoracic aorta: Normal in size. Coronary arteries are patent. FOR PATIENT: Results are automatically released to your [employer] ([employer] account once available, in compliance with federal regulations. ?? This means that you may see your results before your provider has had a chance to review them. ??Please allow 2-3 business days for your provider to comment on the results. López Hanson MD, FACC, [facility] [place] For Patients: As a result of the 21st Century Cures Act, medical imaging exams and procedure reports are released immediately into your electronic medical record. ??You may view this report before your referring provider. ?? If you have questions, please contact your health care provider. OVER-READ ??OVER-READ ??OVER-READ OVER-READ: DETAILED RADIOLOGY EXTRACARDIAC OVER-READ OF CARDIAC CT 07/20/2023 COMPARISON: ??CT chest 05/24/2023. TECHNIQUE: ??Please see cardiology report for technical information. ??70 cc Omnipaque 350. This exam is being performed in conjunction with the services provided by the [facility] [place] ([facility]). CLINICAL HISTORY: ??Cardiac CT over-read. ? FINDINGS: Lungs: Bronchiectasis and scarring in the lower lobes. ??No change from a prior recent CT scan of the chest 05/24/2023. ?? Pleural Spaces: No pleural effusions. Pulmonary Arteries: No filling defects. Aorta: No signs for dissection. Mediastinum: No adenopathy. Miscellaneous: TAVR placement in the aorta. ??See dedicated cardiac imaging report. ?? Aneudy Ojeda NP CT * (ABNORMAL) CREATININE,ISTAT (07/20/2023 2:15 PM CDT) Only the most recent of2 resultswithin the time period is included. Pathologist [facility] [place] CREATININE, POCT 0.50(L) 0.57 - 1.11 mg/dL 07/20/2023 3:01 PM CDT [facility] Comment:Caution: Patients ta keith Hydroxyurea have falsely increased iStat Creatinine results. Verify creatinine results ordering a Creatinine (44518.2) eGFR >90 >90 mL/min/1.7 3m2 07/20/2023 3:01 PM CDT [facility] TRAL LABORAT[facility] Comment:As of 2021, eG FR is calculated by the CKD-EPI creatinine equation without race adjustment. eGFR can be influenced by muscle mass, exercise, and diet. The reported eGFR is an estimation only and is only applicable if the renal function is stable. Blood BLOOD SPECIMEN / Unknown 07/20/2023 2:15 PM CDT 07/20/2023 3:01 PM CDT Aneudy Ojeda NP CHEMISTRY [facility] [address] [place] [address], * (ABNORMAL) IMMUNOGLOBULINS FREE LT CHAIN SERUM (07/20/2023 1:22 PM CDT) Pathologist [facility] [place] KAPPA FREE LIGHT CHAIN, S 2.41(H) 0.33 - 1.94 mg/dL 07/23/2023 10:42 AM CDT [facility] LAMBDA FREE LIGHT CHAIN, S 1.30 0.57 - 2.63 mg/dL 07/23/2023 10:42 AM CDT [facility] KAPPA/LAMBDA FLC RATIO 1.85(H) 0.26 - 1.65 07/23/2023 10:42 AM CDT [facility] Blood BLOOD SPECIMEN / Unknown Venipuncture / Unknown 07/20/2023 1:22 PM CDT 07/20/2023 1:32 PM CDT Destinee ELLIOTT SEND OUTS [facility] [address] [place] [address], * PRO-BNP (07/20/2023 1:22 PM CDT) PRO-BNP 314 <450 pg/mL 07/20/2023 3:07 PM CDT [facility] Blood BLOOD SPECIMEN / Unknown Venipuncture / Unknown 07/20/2023 1:22 PM CDT 07/20/2023 1:32 PM CDT Narrative [facility] - 07/20/2023 3:07 PM CDT The following cut-points have been suggested for the use of proBNP for the diagnostic evaluation of heart failure (HF) in patient with acute dyspnea. Patients with eGFR >= 60 Diagnosis (rule in CHF) ? <50 Years Old ?450 pg/mL 50 - 75 Years Old ?900 pg/mL >75 Years Old ? 1800 pg/mL Exclusion (rule out CHF) Age Independent ?300 pg/mL A cutoff of 1200 pg/mL for patients with an eGFR <60 yields a diagnostic sensitivity of 89% and specificity of 72% for acute congestive heart failure. ? Destinee ELLIOTT SEND OUTS [facility]AL LAB[facility]AT[facility] [address] [place] [address], * ECHO TTE LIMITED WO CONTRAST (07/09/2023 12:24 PM CDT) Only the most recent of2 resultswithin the time period is included. AORTIC VALVE MEAN PG 6 mmHg EJECTION FRACTION 73 % PEAK TR VELOCITY 2.7 m/s LVEDD 3.6 cm EJECTION FRACTION 60 - 65% Anatomical Region Laterality Modality Ultrasound 07/09/2023 11:2 6 AM CDT Narrative 07/09/2023 1:02 PM CDT ECHOCARDIOGRAM ONDINA VARMA ? Accession#: ?? [id number] : ?1940 83 years Study Date: ?? 07/09/2023 11:26:54 AM Gender: F ?BP: ? 134/65 mmHg Height: 157.00 cm ?BSA: ?1.85 m? ? ? Weight: 84.00 kg ? Tech: ? MSR ? Referring MD: ANEUDY OJEDA Site: ? [facility] [place] Location: Mobile OP Patient Location: Outpatient. Procedure: 2D, Color Doppler and Spectral Doppler. Indication for study: Severe Cardiac Rhythm: Regular.Study quality: Fair. Final Impressions: 1. Normal LV size, normal wall thickness, normal global systolic function with an estimated EF of 60 - 65%. 2. Right ventricular cavity size is normal, global systolic RV function is normal. 3. The aortic bioprosthesis TAVR is well seated, no stenosis, no regurgitation. Mean gradient 6mmHg. 4. The mitral valve is sclerotic, mild mitral regurgitation. 5. No pericardial effusion. Chamber Sizes and Function Normal left ventricular size, normal wall thickness, normal global systolic function with an estimated EF of 60 - 65%. Left atrial size is normal. Right ventricular cavity size is normal, global systolic RV function is normal. RV wall thickness is normal. The right atrium is normal. The pulmonary artery is of normal size and origin. The sinus of Valsalva is normal sized. The ascending aorta is normal sized. Valves, RV Pressures and Diastolic Function The aortic valve is unknown bioprosthesis replacement, no stenosis and no regurgitation. The mitral valve is sclerotic, mild mitral regurgitation. Spectral Doppler shows Grade 1 pattern of LV diastolic filling. The tricuspid valve is normal in structure. Tricuspid regurgitation is mild regurgitation. The tricuspid regurgitant velocity is 2.7 m/s, the estimated right ventricular systolic pressure is 29 mmHg plus right atrial pressure. The pulmonic valve is normal. Trace pulmonary regurgitation. Masses, Effusion, Shunts There is no pericardial effusion. The inferior vena cava is normal sized, respiratory size variation less than 50%. No left to right shunting was detected by limited color flow Doppler interrogation of the interatrial septum. MEASUREMENTS AND CALCULATIONS 2-D Measurements and LV Function: LVID (d) 3.6 cm LV FS% (2D) ?? 41 % LVID (s) 2.1 cm LVOT diameter 1.8 cm IVS (d) ??1.0 cm HR ?73 bpm LVPW (d) 0.9 cm LA Vol index ??21 ml/m2 Asc Ao ?? 3.1 cm RV Max 4C (d) 3.7 cm Diastology: Mitral ?Tissue Doppler E Peak 0.8 m/s ??e', Septum ? 0.07 m/s A Peak 0.9 m/s ??e', Lateral ?0.07 m/s E/A ?0.8 ?E/e' Average ?? 10.89 DT ? 206 msec Aortic Valve: Vmax ? 1.6 m/s ??SHANNAN (V) ?? 2.05 cm? ? ? VTI ?0.34 m ?? SHANNAN (I) ?? 2.43 cm? ? ? LVOT V max 1.2 m/s ??Max PG ?10 mmHg LVOT VTI ?? 0.30 m ?? Mean PG ?? 6 mmHg SV ? 82 ml ?Dim Index 0.90 SV index ?? 44 ml/m? ? ? CO ?6.0 l/min ?CI ?3.2 l/min/m? ? ? Mitral Valve: MVA ? 3.7 cm? ? ? MV P 1/2 ??60 msec MV Mean G 3 mmHg MV VTI ?0.34 m Tricuspid Valve and estimated PA pressures: TR Vmax 2.7 m/s TR maxG 29 mmHg . This study was interpreted by an [facility] accredited facility. ??Final ?? Procedure Note Víctor Dorantes MD - 07/09/2023 ECHOCARDIOGRAM ONDINA VARMA : 1940 83 years Study Date: 07/09/2023 11:26:54 AM Gender: F BP: 134/65 mmHg Height: 157.00 cm BSA: 1.85 m? ? ? Weight: 84.00 kg Tech: MSR Referring MD: ANEUDY OJEDA Site: [facility] Reading Location: Mobile OP Patient Location: Outpatient. Procedure: 2D, Color Doppler and Spectral Doppler. Indication for study: Severe Cardiac Rhythm: Regular.Study quality: Fair. Final Impressions: 1. Normal LV size, normal wall thickness, normal global systolic functionwith an estimated EF of 60 - 65%. 2. Right ventricular cavity size is normal, global systolic RV functionis normal. 3. The aortic bioprosthesis TAVR is well seated, no stenosis, noregurgitation. Mean gradient 6mmHg. 4. The mitral valve is sclerotic, mild mitral regurgitation. 5. No pericardial effusion. Chamber Sizes and Function Normal left ventricular size, normal wall thickness, normal globalsystolic function with an estimated EF of 60 - 65%. Left atrial size isnormal. Right ventricular cavity size is normal, global systolic RVfunction is normal. RV wall thickness is normal. The right atrium isnormal. The pulmonary artery is of normal size and origin. The sinus ofValsalva is normal sized. The ascending aorta is normal sized. Valves, RV Pressures and Diastolic Function The aortic valve is unknown bioprosthesis replacement, no stenosis and noregurgitation. The mitral valve is sclerotic, mild mitral regurgitation.Spectral Doppler shows Grade 1 pattern of LV diastolic filling. Thetricuspid valve is normal in structure. Tricuspid regurgitation is mildregurgitation. The tricuspid regurgitant velocity is 2.7 m/s, theestimated right ventricular systolic pressure is 29 mmHg plus right atrialpressure. The pulmonic valve is normal. Trace pulmonary regurgitation. Masses, Effusion, Shunts There is no pericardial effusion. The inferior vena cava is normal sized,respiratory size variation less than 50%. No left to right shunting wasdetected by limited color flow Doppler interrogation of the interatrialseptum. MEASUREMENTS AND CALCULATIONS 2-D Measurements and LV Function: LVID (d) 3.6 cm LV FS% (2D) 41 % LVID (s) 2.1 cm LVOT diameter 1.8 cm IVS (d) 1.0 cm HR 73 bpm LVPW (d) 0.9 cm LA Vol index 21 ml/m2 Asc Ao 3.1 cm RV Max 4C (d) 3.7 cm Diastology: Mitral Tissue Doppler E Peak 0.8 m/s e', Septum 0.07 m/s A Peak 0.9 m/s e', Lateral 0.07 m/s E/A 0.8 E/e' Average 10.89 DT 206 msec Aortic Valve: Vmax 1.6 m/s SHANNAN (V) 2.05 cm? ? ? VTI 0.34 m SHANNAN (I) 2.43 cm? ? ? LVOT V max 1.2 m/s Max PG 10 mmHg LVOT VTI 0.30 m Mean PG 6 mmHg SV 82 ml Dim Index 0.90 SV index 44 ml/m? ? ? CO 6.0 l/min CI 3.2 l/min/m? ? ? Mitral Valve: MVA 3.7 cm? ? ? MV P 1/2 60 msec MV Mean G 3 mmHg MV VTI 0.34 m Tricuspid Valve and estimated PA pressures: TR Vmax 2.7 m/s TR maxG 29 mmHg . This study was interpreted by an [facility] accredited facility. Final Aneudy Ojeda FISH SMOKER ECHO ORD * EXTENDED HOLTER (07/09/2023) Aneudy Ojeda NP CARDIAC SERVICES OR D * US Venous doppler LEFT lower extremity (06/14/2023 12:57 PM RAILROAD CAR LETTERER) Anatomical Region Laterality Modality LEGS, LEG L, Abdomen Ultrasound Impressions 06/14/2023 1:13 PM RAILROAD CAR LETTERER No convincing evidence of left lower extremity deep vein thrombosis. ??Certainly no acute occlusive left lower extremity deep vein thrombosis. Narrative 06/14/2023 1:13 PM RAILROAD CAR LETTERER EXAM: Ultrasound venous Doppler left lower extremity TECHNIQUE: Grayscale, color, and duplex Doppler imaging of the deep venous system of the left lower extremity INDICATION: Swelling COMPARISON: 06/09/2019 FINDINGS: Laterality: Left Examined veins: Common femoral, femoral, deep femoral, popliteal, posterior tibial, peroneal, greater saphenous The peroneal veins were not seen. ?? The assessment director reports partial compressibility in the left common femoral and proximal femoral veins. ??There may be some wall thickening but no thrombus is seen on grayscale imaging. ??Normal color Doppler flow. ??Normal venous waveforms on duplex Doppler imaging with normal augmentation. The right common femoral vein was sampled for comparison and is normal. ?? No signs of central stenosis or acute occlusion. Aneudy Ojeda FISH SMOKER US * CBC with Platelets no Differential (06/14/2023 8:34 AM [facility]) Only the most recent of2 resultswithin the time period is included. WHITE BLOOD COUNT 9.9 4.5 - 11.0 thou/cu mm 06/14/2023 8:47 AM [facility] RED BLOOD COUNT 4.57 4.00 - 5.20 mil/cu mm 06/14/2023 8:47 AM [facility] HEMOGLOBIN 13.7 12.0 - 16.0 g/dL 06/14/2023 8:47 AM [facility] HEMATOCRIT 40.0 33.0 - 51.0 % 06/14/2023 8:47 AM [facility] MCV 88 80 - 100 fL 06/14/2023 8:47 AM [facility] MCH 30.0 26.0 - 34.0 pg 06/14/2023 8:47 AM [facility] MCHC 34.3 32.0 - 36.0 g/dL 06/14/2023 8:47 AM [facility] RDW 14.4 11.5 - 15.5 % 06/14/2023 8:47 AM [facility] PLATELET COUNT 240 140 - 440 thou/cu mm 06/14/2023 8:47 AM [facility] MPV 9.5 6.5 - 11.0 fL 06/14/2023 8:47 AM [facility] NRBC 0.0 % 06/14/2023 8:47 AM [facility] ABS NRBC 0.0 thou /cu mm 06/14/2023 8:47 AM [facility] Blood BLOOD SPECIMEN / Unknown Capillary / Unknown 06/14/2023 8:34 AM RAILROAD CAR LETTERER 06/14/2023 8:40 AM RAILROAD CAR LETTERER Bo SCOTT HEMATOLOGY Performing Organization Address City/[facility]/ZIP Co de Phone Number [facility] [address] [place] [address], * MAGNESIUM (06/14/2023 8:34 AM RAILROAD CAR LETTERER) MAGNESIUM 2.1 1.6 - 2.4 mg/dL 06/14/2023 9:21 AM RAILROAD CAR LETTERER [facility] Blood BLOOD SPECIMEN / Unknown Capillary / Unknown 06/14/2023 8:34 AM RAILROAD CAR LETTERER 06/14/2023 8:40 AM RAILROAD CAR LETTERER Hazel Beyer RN CHEMISTRY Performing Organization Address [facility] Co de Phone Number [facility] [address] [place] [address], * (ABNORMAL) Basic Metabolic Panel (06/14/2023 8:34 AM RAILROAD CAR LETTERER) Only the most recent of2 resultswithin the time period is included. SODIUM 132(L) 136 - 145 mmol/L 06/14/2023 9:21 AM [facility] POTASSIUM 4.7 3.5 - 5.1 mmol/L 06/14/2023 9:21 AM [facility] CHLORIDE 99 98 - 107 mmol/L 06/14/2023 9:21 AM [facility] CO2,TOTAL 23 22 - 29 mmol/L 06/14/2023 9:21 AM [facility] ANION GAP 10 5 - 18 06/14/2023 9:21 AM [facility] GLUCOSE 124(H) 70 - 99 mg/dL 06/14/2023 9:21 AM [facility] CALCIUM 8.4(L) 8.8 - 10.2 mg/dL 06/14/2023 9:21 AM [facility] BUN 13 8 - 23 mg/dL 06/14/2023 9:21 AM [facility] CREATININE 0.56 0.50 - 0.90 mg/dL 06/14/2023 9:21 AM RAILROAD CAR LETTERER [facility] BUN/CREAT RATIO 23(H) 10 - 20 9:21 AM RAILROAD CAR LETTERER [facility] eGFR 90(L) >90 mL/min/1.7 3m2 06/14/2023 9:21 AM RAILROAD CAR LETTERER [facility] Comment:As of 2021, eG FR is calculated by the CKD-EPI creatinine equation without race adjustment. ??eGFR can be influenced by muscle mass, exercise, and diet. ??The reported eGFR is an estimation only and is only applicable if the renal function is stable. Blood BLOOD SPECIMEN / Unknown Capillary / Unknown 06/14/2023 8:34 AM RAILROAD CAR LETTERER 06/14/2023 8:40 AM RAILROAD CAR LETTERER Bo SCOTT CHEMISTRY Performing Organization Address City/[facility]/ZIP Co de Phone Number [facility] [address] [place] [address], * SCAN-CARDIAC STRIP (06/14/2023 5:20 AM RAILROAD CAR LETTERER) Scanner OTHER * (ABNORMAL) ACTIVATED CLOTTING TIME [id number] ACT (06/13/2023 3:54 PM RAILROAD CAR LETTERER) [facility] Signature ACTIVATED CLOTTING TIME, POCT 232(H) 74 - 125 sec 06/13/2023 4:27 PM RAILROAD CAR LETTERER [facility] Blood BLOOD SPECIMEN / Unknown 06/13/2023 3:54 PM RAILROAD CAR LETTERER 06/13/2023 4:27 PM RAILROAD CAR LETTERER Davin Samson MD HEMATOLOGY Performing Organization Address City/[facility]/ZIP Co de Phone Number [facility] [address] [place] [id number], * CVL TAVR (06/13/2023 3:39 PM RAILROAD CAR LETTERER) Anatomical Region Laterality Modality X-Ray Angiograph y 06/13/2023 3:39 PM RAILROAD CAR LETTERER Narrative Procedure Note Davin Samson MD - 06/13/2023 4:30 PM CST PROCEDURE: Transcatheter aortic valve implantation. PREOPERATIVE DIAGNOSIS: Severe aortic stenosis POSTOPERATIVE DIAGNOSIS: s/p TAVR OPERATORS: MD Nguyễn Wilcox MD Caitlin Kronenwetter, PA-C, [facility] Bo Styles MD DESCRIPTION The risks, benefits and alternatives to the procedure were discussed withthe patient and family. Informed consent was obtained from the patientprior to proceeding. The patient was brought to the hybrid operating roomand sedated with conscious sedation. The chest, neck and groins wereprepped and draped in the usual sterile fashion. Ultrasound-guided accesswas performed for placing sheath in the right internal jugular vein andboth femoral arteries. Through the right femoral artery, 2 ProGlidesutures were placed. We then crossed the aortic valve in standard fashionwith an AL1 catheter and a straight wire. The mean gradient was 59 mmHg,consistent with a diagnosis of severe aortic valve stenosis. A temporarypacemaker was advanced into the right ventricle with active fixation usedto obtain adequate thresholds. We then exchanged for a 26 Evolut FX whichwas deployed in a single deployment. Post-dilatation was not needed.There was no evidence of significant AR. The mean gradient fell to 6mmHg. She had back pain; an aortogram and echocardiogram showed no injury.The arterial access sites were closed using the ProGlide sutures. Thepacemaker was connected to a generator for backup pacing. There were nocomplications. The patient was transferred to anesthesia recovery unit inhemodynamically stable condition. Davin Samson MD Director, [facility] [place] [address] Email: [email or web address] Davin Samson MD - 06/13/2023 5:54 PM CST [facility] at [facility] Cardiac Catheterization Report Name: ONDINA VARMA Event Date: 06/13/2023 15:39 Excellian ID #: [id number] [facility] #: [id number] Diagnostic Physician: DAVIN SAMSON [facility] Interventional Physician: DAVIN SAMSON [facility] Referring Physician: Primary Care Physician: CARLITA GAGE Date: 1940 Gender: Female Age: 83 Summary/Conclusions PRESENTATION / INDICATIONS * Congestive Heart Failure - Highest NYHA Class w/in 2 - NYHA Class II VASCULAR ACCESS * Using ultrasound guidance and a percutaneous technique, the right commonfemoral artery was accessed. Ultrasound was used to confirm vesselpatency, localizing needle into the lumen of the vessel. An image wassaved for the medical record. * Using ultrasound guidance and a percutaneous technique, the left commonfemoral artery was accessed. Ultrasound was used to confirm vesselpatency, localizing needle into the lumen of the vessel. An image wassaved for the medical record. * Using ultrasound guidance and a percutaneous technique, the rightinternal jugular vein was accessed. Ultrasound was used to confirm vesselpatency, localizing needle into the lumen of the vessel. An image wassaved for the medical record. DIAGNOSTIC - VALVES * Severe aortic valve stenosis. VALVULAR AND STRUCTURAL HEART INTERVENTION * Transcatheter aortic valve replacement (TAVR) was performed. 26 mmEvolut FX * The mean gradient was reduced from 58 to 6 mmHg * PVL was none SPECIAL PROCEDURES * Right femoral arteriotomy was successfully closed utilizing a closuredevice * Left femoral arteriotomy was successfully closed utilizing a closuredevice SPECIAL EQUIPMENT * A temporary pacemaker was inserted during the procedure. RECOMMENDATIONS & PLAN * Follow up with primary physician * Follow up with help desk manager Consent & [place] Protocol The risks, benefits, and alternatives of the procedure were discussed withthe patient and written informed consent was obtained. [place] protocol was followed. TIME OUT conducted just prior tostarting procedure confirmed patient identity, site/side, procedure,patient position, and availability of correct equipment and implants (ifapplicable). Staff Name Title Holly Rowland RN Nurse Zeinab Platt RTDonavon Monitor Tim Oates MANAGER PRESENTATION Keno Writer / Runner Asya Samson CVT Keno Writer / Runner Davin Samson Learning Disabilities Teacher Bo Styles Fellow Destinee Shaffer Physician [place] Swage Operator Nathaly Luna RN Nurse Procedures ? Ultrasound Guided Vascular Access ? Ultrasound Guided Vascular Access ? Ultrasound Guided Vascular Access ? Aortic Root Angiogram ? Left Heart Cath No Ventriculogram ? Temporary Pacemaker ? TAVR Transfemoral ? Valvuloplasty Aortic ? Femoral Closure Device ? Femoral Closure Device Hemodynamics State: Baseline Pressures (mmHg) Site Systolic Diastolic End Diastolic A Wave V Wave Mean AO 101 54 74 LV 182 -1 16 Valves Aortic Valve Mean Gradient: 58.49 State: Phase 2 Pressures (mmHg) Site Systolic Diastolic End Diastolic A Wave V Wave Mean AO 171 69 106 LV 162 11 25 AO 147 67 100 LV 146 14 27 Valves Aortic Valve Mean Gradient: 6.03 Procedure Details Estimated Blood Loss: < 30 ml Specimen Collected: None Level of Sedation Achieved: Moderate Procedure Start: 15:39 Procedure End: 16:24 Procedure Time: 45 min Fluoroscopy Time: 16 min Cumulative Air Kerma: 253 mGy DAP: 2901 uGy/M2 Contrast: Omnipaque (low-osmolar), 68 ml Physiologic Data Actual VO2: 252.32 Weight: 83.9 kg BSA: 1.84 m2 Vascular Access Time Access Sheath Size 15:43 Right IJ Vein, sheath inserted 15:44 Left Femoral Artery, sheath inserted 15:45 Right Femoral Artery, 7FR DILATOR inserted Medications Ordered and Administered Start Time Stop Time Medication Dose Units Route Ordered By Given By 15:29 Fentanyl 50 mcg IV Davin Samson Leesa RN 15:29 Versed 1 mg IV Davin Samson Leesa RN 15:39 1% Lidocaine 6 ml Subcut Bo Styles Jai 15:40 1% Lidocaine 10 ml Subcut Destinee Shaffer Caitlin PA 15:44 1% Lidocaine 10 ml Subcut Davin Samson Paul 15:45 Fentanyl 25 mcg IV Davin Samson Leesa RN 15:45 Versed 0.5 mg IV Davin Samson Leesa RN 15:47 Heparin 8000 units IV Davin Samson Leesa RN 15:59 Heparin 2000 units IV Davin Samson Leesa RN 16:05 Fentanyl 25 mcg IV Davin Samson Leesa RN 16:05 Versed 0.5 mg IV Davin Samson Leesa RN 16:11 Fentanyl 25 mcg IV Davin Samson Leesa RN 16:20 Protamine 75 mg IV Davin Samson Leesa RN I personally monitored the patient?s conscious sedation during theprocedure. Conscious sedation starts with the first sedation medication dose ofFentanyl or Versed and ends when the procedure is completed, the patientis stable for recovery status, and the physician or other qualified healthcare professional providing the sedation ends personal [id number] time with the patient. The medications listed above were verbally ordered by me and read back tome as documented above. Refer to the procedure log report for additional case details. electronically signed on 06/13/2023 5:54:07 PM with status of Final Davin Samson MD [facility] [place][NOTE 2] [address], [facility] [address] [address] [place], [place] [id number] (p) [phone](f) Davin Samson MD CV IMAGING * RBC W/O TYPE & SCREEN (06/13/2023 3:05 PM RAILROAD CAR LETTERER) QUANTITY 2 06/13/2023 3:0 5 PM RAILROAD CAR LETTERER [facility] Blood BLOOD SPECIMEN / Unknown 06/13/2023 3:00 PM RAILROAD CAR LETTERER Davin Samson MD BLOOD BANK [facility] [address] [place] [address], * RED BLOOD CELLS EA UNIT (06/13/2023 3:00 PM RAILROAD CAR LETTERER) Only the most recent of2 resultswithin the time period is included. CROSSMATCH Compatible Compatible [facility] PRODUCT BLOOD TYPE O Rh Positive [facility] PRODUCT ID NUMBER [id number] [facility] PRODUCT STATUS /Relea sed [facility] PRODUCT DESCRIPTION RBC -1 LR [facility] PRODUCT CODE [id number] [facility] Davin Samson MD [facility]LOOD BANK [facility] [address] [place] [address], [place] [phone] * Type and Screen (06/13/2023 11:52 AM RAILROAD CAR LETTERER) Only the most recent of2 resultswithin the time period is included. ABORH O Rh Positive 06/13/2023 12:56 PM RAILROAD CAR LETTERER [facility] ANTIBODY SCREEN Negative Negative 06/13/2023 12:56 PM RAILROAD CAR LETTERER [facility] SPECIMEN EXPIRATION DATE/TIME 06/16/23 23:59 06/13/2023 12:56 PM RAILROAD CAR LETTERER [facility] Blood BLOOD SPECIMEN / Unknown Venipuncture / Unknown 06/13/2023 11:52 AM RAILROAD CAR LETTERER 06/13/2023 12:06 PM RAILROAD CAR LETTERER Aneudy Ojeda NP BLOOD BANK Performing Organization Address [facility]/ZIP Co de Phone Number [facility] [address] [place] [address], * (ABNORMAL) Glucose, Fasting (06/13/2023 11:52 AM RAILROAD CAR LETTERER) GLUCOSE 121(H) 70 - 99 mg/dL 06/13/2023 12:44 PM RAILROAD CAR LETTERER [facility] Blood BLOOD SPECIMEN / Unknown Venipuncture / Unknown 06/13/2023 11:52 AM RAILROAD CAR LETTERER 06/13/2023 12:06 PM RAILROAD CAR LETTERER Aneudy Ojeda NP CHEMISTRY [facility] [address] [place] [address], * (ABNORMAL) ALBUMIN (06/07/2023 11:08 AM RAILROAD CAR LETTERER) ALBUMIN 3.3(L) 4.0 - 4.9 g/dL 06/07/2023 11:48 AM RAILROAD CAR LETTERER [facility] Blood BLOOD SPECIMEN / Unknown Venipuncture / Unknown 06/07/2023 11:08 AM RAILROAD CAR LETTERER 06/07/2023 11:15 AM RAILROAD CAR LETTERER Davin Samson MD CHEMISTRY [facility] [address] [place] [address], * CTA CHEST ABD PELVIS TAVR - DUAL READ (05/24/2023 3:01 PM RAILROAD CAR LETTERER) Anatomical Region Laterality Modality CHEST, Abdomen, Pelvis Computed Tomography Impressions 05/25/2023 4:02 PM RAILROAD CAR LETTERER 1. No acute nonvascular findings in the [...] PM (Electronic Signature) Narrative 05/25/2023 4:02 PM RAILROAD CAR LETTERER Images from the original result were not [...] deployment projection (balloon expandable device): EVANS 3??, MATERIAL PROCESSOR 2?? Optimal deployment projections (self expandable device): EVANS 21??, CAU 20?? Left ventricle / aortic ??angle: 55?? Access: Other findings: Coronary arteries: ??Dominance: Right coronary artery ??Left main Patent ??Left anterior descending artery Patent ??Left circumflex artery Patent ??Right coronary artery Patent Left atrium: Reduced distal appendage contrast opacification Left ventricle septal ECV: 35% Pericardium: Normal without effusion. Thoracic aorta: Left-sided arch. Vega-bt-cncgnncp atheromatous disease in the arch and descending [...] PATIENT: Results are automatically released to your [employer] account once available, in compliance with federal regulations. ?? This means that you may see your results before your provider has had a chance to review them. ??Please allow 2-3 business days for your provider to comment on the results. Robert Farley MD [facility] 05/25/2023 For Patients: As a result of the 21st Century Cures Act, medical imaging exams and [...] conjunction with the services provided by the [facility] ([facility]). CLINICAL HISTORY: ?? Aortic stenosis. Cardiac over-read. [...] osseous structures demonstrate diffuse degenerative changes. Davin Samson MD CT * HEMATOCRIT (05/24/2023 2:37 PM RAILROAD CAR LETTERER) Pathologist [facility] HEMATOCRIT 44.2 33.0 - 51.0 % 05/24/2023 2:42 PM RAILROAD CAR LETTERER [facility] Blood BLOOD SPECIMEN / Unknown IV Start / Unknown 05/24/2023 2:37 PM RAILROAD CAR LETTERER 05/24/2023 2:37 PM RAILROAD CAR LETTERER Davin Samson MD HEMATOLOGY [facility] [address] [place] [address], [place] * ECHO TTE COMPLETE WO CONTRAST (05/16/2023 11:40 AM RAILROAD CAR LETTERER) AORTIC VALVE MEAN PG 48 mmHg EJECTION FRACTION 69 % PEAK TR VELOCITY 2.6 m/s LVEDD 3.7 cm Anatomical Region Laterality Modality Ultrasound 05/16/2023 11:0 9 AM RAILROAD CAR LETTERER Narrative 05/16/2023 2:34 PM RAILROAD CAR LETTERER ECHOCARDIOGRAM ONDINA VARMA ? Accession#: ?? [id number] : ?1940 82 years Study Date: ?? 05/16/2023 11:09:56 AM Gender: F ?BP: ? 124/80 mmHg Height: 155.00 cm ?BSA: ?1.80 m? ? ? Weight: 81.00 kg ? Tech: ? MJW ? Referring MD: CARLITA GAGE Site: ? [facility] Reading Location: Mobile-OP Patient Location: Outpatient. [...] . This study was interpreted by an [place] [facility] ??Final ?? Procedure Note Roger Mack MD - 05/16/2023 ECHOCARDIOGRAM ONDINA VARMA : 1940 82 years Study Date: 05/16/2023 11:09:56 AM Gender: F BP: 124/80 mmHg Height: 155.00 cm BSA: 1.80 m? ? ? Weight: 81.00 kg Tech: SHARMIN Referring MD: CARLITA GAGE Site: [facility] Reading Location: Mobile-OP Patient Location: Outpatient. [...] . This study was interpreted by an [facility] accredited facility. Final Carlita Gage MD ECHO ORD * (ABNORMAL) XR DXA BONE DENSITY 2 SITES AXIAL (05/16/2023 11:04 AM RAILROAD CAR LETTERER) Anatomical Region Laterality Modality Spine, HIPS, HIPL, HIPR Other Impressions 05/16/2023 4:51 PM RAILROAD CAR LETTERER Osteopenia. RECOMMENDATIONS: The National Osteoporosis Foundation recommends [...] to assess therapeutic efficacy. Beth Rivera PA-C [facility] 05/16/2023 Narrative 05/16/2023 4:51 PM RAILROAD CAR LETTERER For Patients: Results are automatically released to your [facility] account once available, in compliance with federal regulations. This means that you may see your results before your provider has had a chance to review them. Please allow 2-3 business days for your provider to comment on the results. XR DXA Bone Mineral Density (BMD) EXAM LOCATION: [address] [address] PATIENT NAME: Ondina Varma DATE OF : [...] two scanners are made by the same daycare provider. PROCEDURE: Dual-energy x-ray absorptiometry performed with routine [...] hip fracture: 5.9%. Carlita Gage MD DEXA from Last 3 Months Advance Directives Documents on File Type Date Recorded Patient Senior Editor Expl anation Power of Java Lead Architect POLST 06/30/2019 12:00 AM 06/30/2019 Healthcare Directive 10/02/2018 2:31 PM sig graciela 09/30/18 Healthcare Directive 09/30/2018 019 * Full Code (Latest Code Status on File) Date Activated Date Inactivated Comments 06/13/2023 4:32 PM 06/14/2023 4:41 PM Question Answer Comments Code Status Discussion: Reviewed Preferences * Full Code Date Activated Date Inactivated Comments 06/11/2019 12:48 PM 06/27/2019 12:27 PM Question Answer Comments Code Status Discussion: Per Existing Order * Full Code Date Activated Date Inactivated Comments 06/05/2019 4:46 PM 06/11/2019 12:23 PM * Full Code Date Activated Date Inactivated Comments 06/05/2019 6:12 AM 06/05/2019 4:46 PM * Full Code Date Activated Date Inactivated Comments 01/16/2019 10:39 PM 01/17/2019 7:12 PM Care Teams Dry Curer Relationship Specialty Start Date End Date Carlita Gage MD [address] [place] [address] PCP - General 06/01/15 Pebbles Solano AuD [address] [place] [address] Audiology 05/29/16 Holly Johnson DO [address] [place] [address] Physical Medicince Rehab Physical Medicine and Rehabilitation 12/04/[address] [address] 08/18/22
[2023-08-09 10:11] VITALS: BP 137/63; PULSE 63; RESP 18; O2SAT 91
== END 2023-08-09 12:08 | disposition home or self-care (01) ==
PROVIDERS: Emergency Provider Internal Medicine; PCP Internal Medicine
DX: M25.571 Pain in right ankle and joints of right foot (principal); M79.661 Pain in right lower leg; Z86.718 Personal history of other venous thrombosis and embolism; Z79.01 Long term (current) use of anticoagulants; E11.9 Type 2 diabetes mellitus without complications; G82.50 Quadriplegia, unspecified
CPT/HCPCS: 73610; 93971; 99283

== ENCOUNTER 2024-04-16 14:18 | Outpatient (CLI) | payer OTHER, SELFPAY ==
[2024-04-16 14:50] LABS: Hematocrit 45.5 % (33.0-51.0); Hemoglobin* 14.8 gm/dL (12.0-16.0); Mean Corpuscular HGB Conc 33 gm/dL (32-36); Mean Corpuscular Hemoglobin 30 pg (26-34); Mean Corpuscular Volume 93 fL (80-100); Platelet Count* 230 K/uL (140-440); Red Blood Count 4.87 m/uL (4.00-5.20); White Blood Count* 7.72 K/uL (4.50-11.00)
[2024-04-16 14:53] LABS: Slide Review Reflex No
[2024-04-16 15:10] LABS: Hemoglobin A1C* 6.3 % (0-5.6)
[2024-04-16 15:13] LABS: Chloride* 94 mmol/L (96-114); Sodium* 133 mmol/L (135-149)
[2024-04-16 15:16] LABS: Alanine Aminotransferase* 23 U/L (4-35); Anion Gap 8 mEq/L (7-15); Blood Urea Nitrogen* 17 mg/dL (7-30); Calcium* 9.5 mg/dL (8.4-10.6); Carbon Dioxide* 31 mmol/L (20-32); Creatinine* 0.6 mg/dL (0.5-1.5); Estimated Glomerular Filt Rate 88 ml/min; Glucose* 145 mg/dL (60-115)
== END 2024-04-16 14:19 | disposition home or self-care (01) ==
LOC: LAB 14:19
PROVIDERS: PCP Internal Medicine; Visit Provider Internal Medicine
DX: E11.9 Type 2 diabetes mellitus without complications (principal); Z51.81 Encounter for therapeutic drug level monitoring
CPT/HCPCS: 36415; 80048; 83036; 84460; 85027